=== PATIENT | male | born 1945 | race Caucasian/White ===

== ENCOUNTER 2016-04-13 13:02 | Emergency (ER) | payer BC ==
[~2016-04-13] VITALS: Ht 175.3 cm; Wt 92.0 kg
[~2016-04-13 13:02] MED LIST: ASCO10003; BENZ1TAB2 PO; CARB25TA12 PO; CARB50TA3 PO; CHOL1CAP30 PO; CIPR-255 PO; CYAN100048 SL; DOCU100C31 PO; GLUC1500 PO; HYDR-5688 PO; PANT1TAB48 PO; POLY335025 PO; ROPI0.5T15 PO; TAMS0.4C38 PO; VITACAP37 PO
[2016-04-13 13:11] VITALS: TEMP 36.4; Ht 175.3 cm; Wt 92.0 kg
[2016-04-13] MEDS ORDERED: LIDO/EPINEPHRINE/SOD BICARB 20 ML VIAL INFIL ONE (13:45)
--- NOTE | 2016-04-13 14:12 | EMERGENCY ROOM VISIT NOTE ---
ED Visit Note First contact with patient: 13:29 I have personally seen and evaluated the patient with the physician assistant media planner. I agree with the diagnostic/management decisions and have personally been involved in these decisions and agree with the diagnosis.
[2016-04-13] MEDS ORDERED: COEN75CA PO (14:20)
[2016-04-13] MEDS ORDERED: OMEG10007 PO (14:20)
[2016-04-13] MEDS ORDERED: CARBIDOPA/LEVODOPA 25/100MG TAB PO STA (15:19)
--- NOTE | 2016-04-13 15:32 | DIAGNOSTIC IMAGING REPORT ---
CT SCAN OF THE BRAIN WITHOUT IV CONTRAST CLINICAL HISTORY: Trauma. COMPARISON STUDY: CT of the brain dated 09/12/2015. TECHNIQUE: Unenhanced axial CT scan of the brain is performed from the vertex to the skull base. CT DOSE: 749.40 mGy.cm FINDINGS: Brain parenchyma: There are age-related involutional changes noting mild subcortical and periventricular microangiopathic change. There is no hemorrhage, mass effect, or evidence of acute territorial ischemia by CT criteria. You-white matter is preserved. No extra-axial fluid collection is seen. Ventricles, sulci, cisterns: Prominent secondary to involutional change. Intracranial vasculature: There is atherosclerotic calcification of the cavernous carotid and vertebral arteries. Calvarium: The skeletal structures are osteopenic. No depressed calvarial fracture is seen. Sinuses and mastoids: There is trace fluid in the left maxillary antrum. The remaining visualized paranasal sinuses are clear. The mastoid air cells are well pneumatized. Orbits: The bony orbits are grossly intact. IMPRESSION: There is no hemorrhage, mass effect, or evidence of acute territorial ischemia by CT criteria. Electronically signed by: Isaias Moreno M.D. 04/13/2016 3:30 PM
--- NOTE | 2016-04-13 15:35 | EMERGENCY ROOM VISIT NOTE ---
ED Visit Note First contact with patient: 13:29 CHIEF COMPLAINT: Scalp laceration after a fall HISTORY OF PRESENT ILLNESS: Patient is a 70-year-old white male who is brought to the emergency department by ambulance for evaluation of a right occipital scalp laceration that he sustained at home roughly 90 minutes ago. He has a history of Parkinson's, and a has difficulty with balance at baseline. He bent over to pet a cat, and he lost his balance. He fell forward slightly, then to the side, and as he fell backwards, he struck the right side of the head on a glass decorative table. He broke the table, fell down to the ground. He did not lose consciousness. He had fairly significant bleeding from the right occipital scalp laceration initially, which was controlled shortly thereafter with pressure. Ambulance was summoned. They applied an ice pack. The patient himself denies any pain. The bleeding is now controlled. He denies any headache, lightheadedness, nausea or vomiting. He reports he has dizziness chronically from his Parkinson's and denies any change or worsening in this. He denies any neck pain. No other injuries including to his chest, ribs or back. He has no other complaints other than the scalp laceration. He reports that his tetanus is up-to-date. He does not take any blood thinning medications. REVIEW OF SYSTEMS: Review of systems as per HPI. All other systems reviewed were negative. 10 systems reviewed. PMH: Electronic medical records are reviewed and summarized as above/below. See Problem List. Tetanus is up-to-date. SOCIAL HISTORY: Patient lives at home with his . Nonsmoker. PHYSICAL EXAM: Vital Signs: Reviewed Nurse's notes. CONSTITUTIONAL: Patient is a pleasant, well-appearing 70-year-old white male who is awake and alert and in no acute distress. His is at the bedside. HEENT: Right occipital scalp laceration measuring 4 cm in length. Wound edges gape widely. No active bleeding. Pupils equal, round, reactive to light and accommodation. EOMs intact without nystagmus. Sclera are anicteric. Tympanic membranes intact, with normal landmarks. External canals are clear. Oral and nasopharynx are clear. Mucous membranes are moist. NECK: Supple, nontender, no lymphadenopathy. NEUROLOGICAL: Alert and cooperative. Sensory and motor functions grossly intact. Resting tremors noted. EMERGENCY DEPARTMENT COURSE: Head CT was performed and was negative for acute intracranial bleed or skull fractures. The patient was ordered his 1500 hour dose of Sinemet at his request and he is he has not brought any from home. The wound was cleaned with saline and Betadine and irrigated with saline. Sterile technique was used and the wound was anesthetized with 1% buffered lidocaine with epinephrine. The wound edges were then approximated with 9 skin main. Patient tolerated the procedure well. Bacitracin ointment was applied as a dressing. Head injury and wound care instructions were outlined with the patient. His fall was mechanical in nature, likely related to his Parkinson's disease. It was not consistent with a syncopal episode, seizure or arrhythmia. There was no loss of consciousness or altered mental status. Skull fracture, acute intracranial bleed, cervical spine injury, were all considered. CT SCAN OF THE BRAIN WITHOUT IV CONTRAST CLINICAL HISTORY: Trauma. COMPARISON STUDY: CT of the brain dated 09/12/2015. TECHNIQUE: Unenhanced axial CT scan of the brain is performed from the vertex to the skull base. CT DOSE: 749.40 mGy.cm FINDINGS: Brain parenchyma: There are age-related involutional changes noting mild subcortical and periventricular microangiopathic change. There is no hemorrhage, mass effect, or evidence of acute territorial ischemia by CT criteria. You-white matter is preserved. No extra-axial fluid collection is seen. Ventricles, sulci, cisterns: Prominent secondary to involutional change. Intracranial vasculature: There is atherosclerotic calcification of the cavernous carotid and vertebral arteries. Calvarium: The skeletal structures are osteopenic. No depressed calvarial fracture is seen. Sinuses and mastoids: There is trace fluid in the left maxillary antrum. The remaining visualized paranasal sinuses are clear. The mastoid air cells are well pneumatized. Orbits: The bony orbits are grossly intact. IMPRESSION: There is no hemorrhage, mass effect, or evidence of acute territorial ischemia by CT criteria. Problem List Medical Problems: (1) Adynamic ileus Status: Resolved (2) Anemia Status: Chronic (3) DJD (degenerative joint disease) of hip Status: Resolved (4) Fall Status: Resolved (5) Leukocytosis Status: Resolved (6) Lip laceration Status: Resolved (7) Jeff's syndrome Status: Chronic (8) Parkinson disease Status: Chronic (9) Parkinsons disease Status: Chronic (10) Sigmoid volvulus Status: Resolved (11) UTI (urinary tract infection) Status: Resolved (12) Volvulus Status: Resolved (13) Weakness Status: Resolved Surgical Problems: (1) Odette-prosthetic fracture of femur following total hip arthroplasty Status: Resolved (2) S/P appendectomy Status: Resolved (3) S/P hip replacement Status: Resolved (4) S/P ORIF (open reduction internal fixation) fracture Status: Resolved Current/Historical Medications Scheduled Ascorbic Acid (Vitamin C), 1,000 MG QAM Benztropine Mesylate (Cogentin), 0.5 MG PO BID Carbidopa/Levodopa (Sinemet Cr 50MG/200MG), 1 TAB PO UD Carbidopa/Levodopa (Sinemet 25MG/100MG), 1 TAB PO UD Cholecalciferol (Vitamin D3), 1 CAP PO DAILY Ciprofloxacin Hcl (Cipro), 500 MG PO BID Cyanocobalamin (Vitamin B-12), 1,000 MCG SL DAILY Docusate Sodium (Docusate Sodium), 1 CAP PO DAILY Fqpulbdwucd-Pxmjuhaczxa-Zah C- (Glucosamine Chondroitin 1), 1 CAP PO DAILY Pantoprazole (Protonix), 1 TAB PO DAILY Polyethylene Glycol 3350 (Miralax), 17 GM PO DAILY Ropinirole (Requip), 0.5 MG PO UD Tamsulosin Hcl (Flomax), 0.4 MG PO HS Vitamin E (E-400), 400 PO Q2D Scheduled PRN Hydrocodone/Acetaminophen 5MG/325MG ([place] 5MG/325MG), 1 TABLET PO Q4H PRN for Pain Miscellaneous Medications Coenzyme Q10 (Ubidecarenone) (Co Q-10), 1 CAP PO Fish Oil ([place]-3), 1 CAP PO Allergies Coded Allergies: Poison Nguyen Extract/Poison [place] Extra (Verified Allergy, Severe, rash, itchy , 04/05/15) Does not need to have physical contact to have reaction. Hydromorphone (Unverified Allergy, Unknown, hives on trunk, 04/05/15) POLLEN (Verified Allergy, Unknown, SNEEZING,RUNNY NOSE, 04/05/15) G.Domesticus Dust Mite (Verified Adverse Reaction, Intermediate, Sneeze, cough, 04/05/15) Vital Signs Date Time Temp Pulse Resp B/P Pulse Ox O2 Delivery O2 Flow Rate FiO2 04/13/16 14:30 62 18 123/78 95 Room Air 04/13/16 13:11 36.4 65 18 133/83 94 Room Air Departure Information Impression Primary Impression: Scalp laceration Additional Impression: Fall Referrals Fili Early M.D. (PCP) Patient Instructions A [facility], [facility] Additional Instructions Keep wound clean and dry. Do not allow any crusting or dried blood to accumulate on main. If this occurs, cleanse gently with soap and water to remove scabbing from the staple line. Use an antibiotic ointment for 3-4 days, then let wound dry. Staple removal in 10-12 days. Return sooner for any signs of infection (increasing redness, swelling, drainage). Ice and elevate for swelling and pain. Tylenol 1000 mg every 6 hrs for pain. Continue current medications. Read the head injury instructions and return to the emergency Department for any problems or concerns.
[2016-04-13 16:47] VITALS: BP 122/63; PULSE 72; O2SAT 94
[2016-06-26] MEDS ORDERED: LACT1TAB4 PO (13:04)
[2016-06-26] MEDS ORDERED: DUTA0.5C PO (13:04)
[2016-06-26] MEDS ORDERED: CHOL20007 PO (13:04)
[2016-06-26] MEDS ORDERED: CYAN500T13 PO (13:04)
[2016-06-26] MEDS ORDERED: CLB/200 PO (13:06)
[2016-09-13] MEDS ORDERED: IMD/2 PO (09:40)
[2016-09-13] MEDS ORDERED: FERR1TAB23 PO (09:40)
[2016-09-13] MEDS ORDERED: CGN5X PO (09:42)
[2016-09-16] MEDS ORDERED: HYDR-4383 PO (13:41)
== END 2016-04-13 16:48 | disposition home or self-care (01) ==
LOC: EDBD 13:02 → C.EDC 13:03
DX: S01.01XA Laceration without foreign body of scalp, initial encounter (principal); W25.XXXA Contact with sharp glass, initial encounter; W19.XXXA Unspecified fall, initial encounter; G20 Parkinson's disease; D64.9 Anemia, unspecified; Z79.899 Other long term (current) drug therapy

== ENCOUNTER → 2016-05-12 | Outpatient (CLI) | payer BC ==
[~2016-05-12] MED LIST changes: +CGN5X PO; +CHOL20007 PO; +CLB/200 PO; +COEN75CA PO; +CYAN500T13 PO; +DUTA0.5C PO; +FERR1TAB23 PO; +HYDR-4383 PO; +IMD/2 PO; +LACT1TAB4 PO; +OMEG10007 PO; +OXYC-57 PO; +WARF2TAB PO
== END | disposition home or self-care (01) ==
LOC: C.RDSM 16:20
PROVIDERS: ATTEND Physical Medicine & Rehabilitation Sports Medicine
DX: M17.0 Bilateral primary osteoarthritis of knee (principal)

== ENCOUNTER → 2016-05-16 | Outpatient (CLI) | payer BC ==
--- NOTE | 2016-05-16 12:02 | DIAGNOSTIC IMAGING REPORT ---
ABDOMINAL WALL ULTRASOUND CLINICAL HISTORY: Abdominal wall lump COMPARISON STUDY: CT scan dated 03/17/2015 FINDINGS: Ultrasound of the abdominal wall was performed. There is evidence for rectus diastases and rectus muscle thinning. There are prominent bowel loops which appear mildly dilated. No focal herniations visualized. If there is persistent clinical concern over the presence of abdominal hernia, CT scan could be obtained in follow-up. IMPRESSION: 1. Rectus diastases and rectus muscle thinning. 2. No focal hernia identified ultrasonographically 3. If there is persistent clinical concern over the presence of an abdominal hernia, a CT scan could be obtained in follow-up Electronically signed by: Gregorio Henriquez M.D. 05/16/2016 12:00 PM Dictated Date/Time: 05/16/2016 11:58 AM
== END | disposition home or self-care (01) ==
LOC: C.ULTRBC 11:09
PROVIDERS: ATTEND Internal Medicine Geriatric Medicine
DX: R22.2 Localized swelling, mass and lump, trunk (principal)

== ENCOUNTER → 2016-05-27 | Outpatient (CLI) | payer BC ==
--- NOTE | 2016-05-27 11:04 | DIAGNOSTIC IMAGING REPORT ---
CT SCAN OF THE ABDOMEN AND PELVIS WITHOUT IV CONTRAST CLINICAL HISTORY: Palpable abnormality of the abdominal wall. COMPARISON STUDY: Abdominal CT dated 03/17/2015. Ultrasound abdominal wall dated 05/16/16. TECHNIQUE: CT scan of the abdomen and pelvis is performed from the lung bases to the proximal femora. Images are reviewed in the axial, sagittal, and coronal planes. IV contrast was not administered for this examination as per the referring clinician. Note that the examination was performed and suboptimal fashion without oral and IV contrast. The examination is also degraded by motion artifact. Automated dose control exposure was utilized. CT DOSE: 611.72 mGy.cm FINDINGS: Lung bases: The heart is top normal in size and without pericardial effusion. There are coronary artery calcifications. The lung bases are clear noting dependent atelectasis. There is a small hiatal hernia. Liver: The unenhanced liver is normal in size, contour, and attenuation. There is no intrahepatic biliary ductal dilatation. Gallbladder: Unremarkable. Spleen: Normal in size and attenuation. Pancreas: The unenhanced pancreas is grossly unremarkable. Adrenal glands: Unremarkable. Kidneys: The unenhanced kidneys demonstrate cortical atrophy and are without hydronephrosis. There are no renal calculi identified. A 1.6 cm cyst is noted in the left upper pole. Abdominal vasculature: The abdominal aorta is normal in course and caliber noting moderate to advanced atherosclerotic calcification. Bowel: There is moderate to severe constipation. Findings suggest previous partial colon resection. No bowel obstruction is identified. There is fecalization of the small bowel. The appendix is not identified and reported surgically absent. Peritoneum: There is no intraperitoneal free air or abdominal ascites. There is a tiny fat-containing umbilical hernia, as well as evidence of previous ventral hernia repair. There is persistent ventral hernia with protuberant small bowel loops. This is best seen in the ventral pelvis on axial image #330. There is diastases of the rectus musculature at this level. A small fat-containing supraumbilical hernia is seen on image #264. Lymphadenopathy: None. Pelvic viscera: Evaluation of the pelvis is significantly degraded by streak artifact from bilateral hip arthroplasties. The prostate gland appears mildly enlarged but is not well assessed. The bladder wall appears slightly thickened and trabeculated suggesting chronic outlet obstruction. A penile prosthesis is in place. The reservoir is located in the left ventral pelvis. Skeletal structures: The skeletal structures are osteopenic. Mild lumbosacral spondylosis is observed. No lytic or blastic lesions are seen. There are bilateral hip arthroplasties. IMPRESSION: 1. Suboptimal examination without oral and IV contrast. The examination is also degraded by motion artifact. 2. Findings suggest previous colon resection. No bowel obstruction is identified. There is moderate to severe constipation as well as fecalization of the distal small bowel loops. 3. There is evidence of previous ventral hernia repair. There is diastases of the rectus musculature with persistent ventral hernia in the midline pelvis and protuberant small bowel loops at this site. 4. There is a small fat-containing supraumbilical hernia. 5. Additional changes as above. Electronically signed by: Isaias Moreno M.D. 05/27/2016 11:03 AM Dictated Date/Time: 05/27/2016 10:54 AM
== END | disposition home or self-care (01) ==
LOC: C.CTS 10:30
PROVIDERS: ATTEND Internal Medicine Geriatric Medicine
DX: R22.2 Localized swelling, mass and lump, trunk (principal); K59.00 Constipation, unspecified; K43.9 Ventral hernia without obstruction or gangrene

== ENCOUNTER 2016-07-23 06:12 | Inpatient (IN) | payer BC, OTHER ==
[2016-06-26 13:06] LABS: URINE APPEARANCE CLEAR (CLEAR); URINE BILIRUBIN NEG (NEG); URINE COLOR YELLOW; URINE NITRITE NEG (NEG); URINE PH 5.5 (4.5-7.5); URINE SPECIFIC GRAVITY 1.026 (1.000-1.030); UROBILINOGEN NEG (NEG)
[2016-06-26 13:09] LABS: MANUAL MICROSCOPIC REQUIRED? NO; REVIEW REQ? NO
--- NOTE | 2016-06-26 14:07 | PAT Medication Instructions ---
Service Date Jun 26, 2016. Current Home Medication List Ascorbic Acid (Vitamin C), 1,000 MG QAM Benztropine Mesylate (Cogentin), 0.5 MG PO QAM Carbidopa/Levodopa (Sinemet Cr 50MG/200MG), 1 TAB PO midnight Carbidopa/Levodopa (Sinemet 25MG/100MG), 1 TAB PO 5XWEEK Celecoxib (CeleBREX), 200 MG PO QAM Cholecalciferol (Vitamin D3), 1 TAB PO QAM Coenzyme Q10 (Ubidecarenone) (Co Q-10), 1 CAP PO Q2D Cyanocobalamin (Vitamin B12 500MCG), 1,000 MCG PO QAM Dutasteride (Avodart), 0.5 MG PO NOON Fish Oil ([place]-3), 1 CAP PO Q2D Lactobacillus (Floranex), 1 TAB PO QAM Ropinirole (Requip), 0.5 MG PO UD Tamsulosin Hcl (Flomax), 0.4 MG PO HS Vitamin E (E-400), 400 PO Q2D Medication Instructions For Your Scheduled Surgery Celecoxib (CeleBREX), 200 MG PO QAM (patient will check with surgeon) - Hold the following medications 2 weeks prior to surgery: Vitamin E (E-400), 400 PO Q2D Fish Oil ([place]-3), 1 CAP PO Q2D Coenzyme Q10 (Ubidecarenone) (Co Q-10), 1 CAP PO Q2D - Hold the following medications 24 hours prior to surgery: Ropinirole (Requip), 0.5 MG PO UD - Hold the following medications the morning of surgery: Cyanocobalamin (Vitamin B12 500MCG), 1,000 MCG PO QAM Cholecalciferol (Vitamin D3), 1 TAB PO QAM Ascorbic Acid (Vitamin C), 1,000 MG QAM Lactobacillus (Floranex), 1 TAB PO QAM - Take the following medications the morning of surgery with a sip of water: Carbidopa/Levodopa (Sinemet 25MG/100MG), 1 TAB PO 5XWEEK Benztropine Mesylate (Cogentin), 0.5 MG PO QAM - Take the following medications as scheduled the afternoon/night before surgery : Tamsulosin Hcl (Flomax), 0.4 MG PO HS Dutasteride (Avodart), 0.5 MG PO NOON Carbidopa/Levodopa (Sinemet Cr 50MG/200MG), 1 TAB PO midnight If you have any questions please call us at [phone] or [phone] ( [place]) or [phone]
[2016-06-26 15:16] LABS: BASO % 0.3 %; BASO ABS # 0.02 K/uL (0-0.2); COMPLETE YES; EOS % 1.5 %; HEMATOCRIT 39.7 % (42-52); IG% 0.3 %; LYMPH % 25.7 %; LYMPH ABS # 1.76 K/uL (1.2-3.4); MEAN CELL VOLUME 92.1 fL (80-100); MEAN CORPUSCULAR HEMOGLOBIN 30.9 pg (25-34); MEAN CORPUSCULAR HGB CONC 33.5 g/dl (32-36); MEAN PLATELET VOLUME 11.8 fL (7.4-10.4); MONO % 9.8 %; NEUT % 62.4 %; PLATELET COUNT 196 K/uL (130-400); RED BLOOD COUNT 4.31 M/uL (4.7-6.1); WHITE BLOOD COUNT 6.85 K/uL (4.8-10.8)
[2016-06-26 15:30] LABS: PARTIAL THROMBOPLASTIN RATIO 1.1; PROTHROMBIN TIME (PATIENT) 10.7 SECONDS (9.0-12.0)
[2016-06-26 15:39] LABS: BUN/CREATININE RATIO 34.9 (10-20); CALCIUM 8.7 mg/dl (8.5-10.1); CREATININE 0.63 mg/dl (0.60-1.40); POTASSIUM 4.2 mmol/L (3.5-5.1)
--- NOTE | 2016-07-07 17:31 | HISTORY & PHYSICAL EXAMINATION ---
DATE OF ADMISSION: 07/23/2016 CHIEF COMPLAINT: Right knee pain. HISTORY OF PRESENT ILLNESS: This 70-year-old white male presents to the office with complaints of right knee pain, this has been ongoing for an extended period of time. Symptoms have been present for over 6 months. He has tried Euflexxa injections as well as cortisone injections and oral anti-inflammatories without lasting improvement. X-ray and MRI have been obtained. Knee pain is affecting his ADLs. It is worse with any weightbearing. He does have Parkinson disease and has limited weightbearing, using a walker. His knee pain is interfering with his ability to push off with the right leg. He notes that he falls because the right knee generates pain. He denies any numbness or tingling. He elects to proceed with right total knee arthroplasty on 07/23/2016 in hopes of alleviating his discomfort and disability. PAST MEDICAL HISTORY: Significant for osteoarthritis, anemia, Parkinson disease, lymphedema, abdominal hernia, history of alcohol use, BPH, erectile dysfunction, seborrheic keratosis, and history of periprosthetic hip fracture. PREVIOUS SURGERIES: Total shoulder arthroplasty August 2015, sigmoidoscopy March 2015, right cubital tunnel release January 2015, left cubital tunnel release November 2014, left total hip replacement in December 2013, ORIF of the femur for periprosthetic hip fracture in 2014, skin biopsy October 2013, right total hip arthroplasty October 2012, appendectomy in 1994. CURRENT MEDICATIONS: Benztropine 0.5 mg p.o. daily, Sinemet 50 mg/200 mg p.o. at midnight, Celebrex 200 mg daily, CoQ10 daily, fish oil daily, Flomax 0.4 mg daily, ketaconazole 2% topical shampoo daily, melatonin 1 mg p.o. at bedtime, [place] 5/325 mg p.o. q. 6 hours p.r.n., Requip 0.5 mg 2 tablets p.o. daily, Sinemet 25 mg/100 mg p.o. q. 3 hours, vitamin B12 daily, vitamin C and D daily, vitamin E 400 units daily. ALLERGIES: KNOWN ALLERGY TO DILAUDID. SOCIAL HISTORY: The patient is employed at the university. . No tobacco use, social ETOH use. He used up to 18 drinks per week at one point in time. FAMILY HISTORY: Significant for heart disease. REVIEW OF SYSTEMS: Significant for above stated conditions, otherwise unremarkable. PHYSICAL EXAMINATION: GENERAL: Well-developed, well-nourished elderly white male, in no acute distress. Sitting in a wheelchair. Alert and oriented. Baseline tremor. SKIN: Warm and dry with fair turgor. No rashes. Dry flaking skin present. No ecchymosis or erythema. Mild intraarticular effusion. HEENT: Normocephalic, atraumatic. Eyes: PERRLA, EOMI. Nares patent bilaterally without turbinate enlargement. Oropharynx without erythema or exudate. No lesions noted. Uvula midline. Oral mucosa moist. Fair dentition. HEART: RRR. No MGR. LUNGS: Clear to auscultation bilaterally. No crackles, rhonchi or wheezing. Good air movement. ABDOMEN: Obese. Bowel sounds present x4, soft, nontender. No organomegaly. Midline hernia noted. MUSCULOSKELETAL: Lymphedema is present in his lower extremities. Right knee has discomfort with palpation over the medial and lateral joint lines as well as the peripatellar area. There is patellofemoral crepitation with flexion and extension. Stable collateral ligaments. Lacks a few degrees of terminal extension. Flexion to around 90 degrees. No defect in the patellar tendon or quadriceps tendon. NEUROLOGIC: Cranial nerves II-XII are intact. Baseline tremor as stated. Flat affect. Gross sensation is intact across the lower extremities by soft touch. DATA: Radiographic imaging previously obtained shows end-stage patellofemoral disease of the right knee. Periarticular osteophytes and subchondral sclerosis is also present. IMPRESSION: Right knee end-stage degenerative joint disease. PLAN: Informed written consent was obtained to proceed with right total knee arthroplasty. Postoperative prescriptions for Percocet and Coumadin will be provided at discharge from the hospital. Anticipate discharge to a correction or rehab hospital due to his baseline Parkinson's and risk of falling. His is unable to care for him at home. He already has a walker. Preoperative lab work, EKG and chest x-ray have been ordered. Medical clearance has been requested from Dr. Early as well as the patient's neurologist. SERJIO
[2016-07-23] VITALS (8 sets, daily range): BP systolic 101–125; BP diastolic 59–75; PULSE 56–94; TEMP 36.3–36.7; O2SAT 84–98; Ht 175.3 cm; Wt 175.3 kg
[~2016-07-23] VITALS: Ht 175.3 cm; Wt 175.3 kg
[~2016-07-23 06:12] MED LIST changes: +CEFAZOLIN 2000 MG/60 ML D5W 60 ML IV SCH; -CGN5X PO; -CHOL1CAP30 PO; -CIPR-255 PO; -CYAN100048 SL; -DOCU100C31 PO; -FERR1TAB23 PO; -GLUC1500 PO; -HYDR-4383 PO; -HYDR-5688 PO; -IMD/2 PO; +LACTATED RINGER'S 1000ML 1,000 ML IV SCH; +LACTATED RINGER'S 1000ML 500 ML IV ONE; +LACTATED RINGER'S 1000ML IV SCH; -OXYC-57 PO; -PANT1TAB48 PO; -POLY335025 PO; +ROPIVACAINE 5MG/ML 30 ML 150 MG, BUPIVACAINE/EPINEPHR 0.5% MPF 30 ML, KETOROLAC TROMETH... INFIL SCH; +TRANEXAMIC ACID INJ 1,000 MG in SODIUM CHLORIDE 0.9% 100ML 100 ML IV SCH; -WARF2TAB PO
--- NOTE | 2016-07-23 06:20 | History & Physical Bridge Note ---
H&P Re-Evaluation Bridge Note: I have examined the patient, reviewed the History & Physical and in the interval since the performance of the History & Physical I have noted the following changes of clinical significance:cleared by primary care and neurology and patient requests R TKA secondary to pain and decreased function. No changes noted
[2016-07-23] MEDS ORDERED: BUPIVACAINE 0.25% 30 ML VIAL ONE (06:43)
[2016-07-23] MEDS ORDERED: DEXAMETHASONE SOD INJ 4 MG/ML VIAL ONE (06:43)
[2016-07-23] MEDS ORDERED: MIDAZOLAM HCL 1 MG/ML 2ML VIAL ONE (08:07)
[2016-07-23] MEDS ORDERED: ORTHO JOINT ANESTHETIC ONE (08:31)
[2016-07-23] MEDS ORDERED: POVIDONE-IODINE OP SOLN 30 ML BTL ONE (08:32)
[2016-07-23] MEDS ORDERED: BUPIVACAINE 0.5 % 5 MG/1 ML PF 10ML VIAL ONE (08:58)
[2016-07-23] MEDS ORDERED: MEPERIDINE HCL 25 MG/ML CARP IV PRN (09:00)
[2016-07-23] MEDS ORDERED: EpHEDrine SULFATE INJ 50 MG/ML AMP IV PRN (09:00)
[2016-07-23] MEDS ORDERED: ONDANSETRON INJ 2 MG/ML 2 ML VIAL IV PRN ×2 (09:00→10:30)
[2016-07-23] MEDS ORDERED: FENTANYL CITRATE INJ 50 MCG/1 ML 2 ML VIAL IV PRN (09:00)
[2016-07-23] MEDS ORDERED: LABETALOL HCL IV 5 MG/ML 20ML IV PRN (09:00)
[2016-07-23] MEDS ORDERED: ATROPINE SULFATE 0.1 MG/ML 5ML SYR IV PRN (09:00)
[2016-07-23] MEDS ORDERED: LIDOCAINE HCL 2% 2 ML VIAL (20MG/ML) ONE (09:38)
[2016-07-23] MEDS ORDERED: PROPOFOL IV EMULSION 10 MG/ML 20 ML VIAL IV ONE (09:38)
--- NOTE | 2016-07-23 10:15 | [facility] Post Operative Brief Note ---
Immediate Operative Summary Operative Date Jul 23, 2016. Pre-Operative Diagnosis Right knee end-stage degenerative joint disease Post-Operative Diagnosis Same as preop Procedure(s) Performed Right Total Knee Arthroplasty Surgeon Dr. Nelson Construction Rep Surgeon(s) Erick Webb Estimated Blood Loss 125 ml Findings severe PFJ disease Fluids (cc crystalloids) 1400cc Specimens A:Right knee Bone and Tissue Drains none Anesthesia spinal/block Complication(s) None Disposition Recovery Room / PACU
[2016-07-23] MEDS ORDERED: ACETAMINOPHEN 325 MG TAB PO PRN (10:30)
[2016-07-23] MEDS ORDERED: DiphenhydrAMINE HCL 50 MG/ML VIAL IV PRN (10:30)
[2016-07-23] MEDS ORDERED: BISACODYL 10 MG SUPP PR PRN (10:30)
[2016-07-23] MEDS ORDERED: ALUMINUM/MAGNESIUM/SIMETH (MAALOX MAX) 30 ML UDC PO PRN (10:30)
[2016-07-23] MEDS ORDERED: MAGNESIUM HYDROXIDE SUSP 30 ML UDC PO PRN (10:30)
[2016-07-23] MEDS ORDERED: MoRPHine SULFATE 2 MG/ML CARP IV PRN (10:30)
[2016-07-23] MEDS ORDERED: METOCLOPRAMIDE HCL INJ 5 MG/ML 2 ML VIAL IV PRN (10:30)
--- NOTE | 2016-07-23 10:45 | OPERATIVE REPORT ---
DATE OF OPERATION: 07/23/2016 SURGEON: Dr. Loredo. INSECT CONTROL INSPECTOR: Chuy Montoya PA-C. No resident or fellow available. PREOPERATIVE DIAGNOSIS: Osteoarthritis, right knee, with severe patellofemoral disease. POSTOPERATIVE DIAGNOSIS: Same. OPERATION PERFORMED: Right cemented total knee replacement. PERIOPERATIVE SITUATION: Medically cleared male with multiple comorbidities including severe Parkinson's disease, who has an inability to push off his right leg due to chronic subluxation and instability and degenerative disease of his patellofemoral joint. At this point time, it is increasing his fall risk and he wants to proceed with surgical treatment. He was cleared from his medical provider as well as his neurologist. PROCEDURE IN DETAIL: The patient was properly identified, site verified, consent verified, 2 grams of Ancef confirmed as being given. The right lower extremity was prepped and draped in usual routine fashion. Care was taken to protect his bilateral hip replacements. Tourniquet was inflated to 300 mmHg with exsanguination of limb with a rubber Esmarch bandage. Total tourniquet time was approximately 50 minutes. Midline exposure utilized. Parapatellar arthrotomy performed. Severe disease was noted of the patellofemoral joint with marked mal-tracking and severe grooving and bone loss. All synovectomy was completed, all soft tissue releases were completed. The cruciates were then resected, the tibia was subluxated, meniscal remnants were removed. The distal femur resected 12 mm at 6 degrees of valgus, the proximal tibia resected 4 mm. The extension gap was excellent. The femur was sized to a 5, it was cut, appropriate condylar and chamfer cuts made. The flexion gap was excellent. Box cut was then made. A 5 size trial fit well. The tibia was broached and reamed to a size 5 and then the 12.5 spacer noted to give best stability and midrange flexion, did not eliminate any extension. The patella was then sized to a 41. It was resected, leaving 15.5 to 16 mm, and the trial peg holes seated and the patella fit well. It tracked well. All trial implants were then removed and the wound then irrigated with Betadine, Pulsavac, and the permanents cemented into position. After 12 minutes, tourniquet deflated. After 14 minutes, the knee flexed. The knee irrigated with Betadine, Pulsavac, the spacer removed and then minor cement removal occurred and then the permanent knee spacer placed and the knee reduced and then closed using #1 Ethibond, #1 Vicryl, 2-0 Vicryl, and stainless steel clips. Appropriate soft tissue dressing applied and the patient transferred to the recovery room in satisfactory condition, having tolerated the procedure well. ESTIMATED BLOOD LOSS: 150 mL CRYSTALLOID: 1400 to 1500 mL SUMMARY OF IMPLANTS: Size 5 right femur posterior cruciate substituting, size 5 tibial rotating platform tray, size 41 oval domed 3 pegged patella, and tibial insert size 5 x 12.5, two bags of [place] G cement. DVT prophylaxis per protocol. I attest to the content of the Intraoperative Record and any orders documented therein. Any exceptions are noted below. MTDD
--- NOTE | 2016-07-23 10:58 | DIAGNOSTIC IMAGING REPORT ---
TWO VIEWS RIGHT KNEE CLINICAL HISTORY: Postoperative examination. FINDINGS: AP and crosstable lateral portable views of the right knee are obtained. A right knee arthroplasty is in near anatomic alignment. There has been undersurface remodeling of the patella. No acute fracture is seen. There are expected postoperative changes around the knee including skin clips, soft tissue edema, and subcutaneous gas. IMPRESSION: Expected postoperative changes status post right knee arthroplasty. No acute fracture is seen. Electronically signed by: Isaias Moreno M.D. 07/23/2016 10:56 AM Dictated Date/Time: 07/23/2016 10:56 AM
--- NOTE | 2016-07-23 11:34 | Anesthesiology Progress Note ---
Anesthesia Post Op Note Date & Time Jul 23, 2016 at 11:33 Vital Signs Pain Intensity: 0 Vital Signs Past 12 Hours Date Time Temp Pulse Resp B/P Pulse Ox O2 Delivery O2 Flow Rate FiO2 07/23/16 11:21 67 15 93 07/23/16 11:21 70 15 07/23/16 11:20 118/66 07/23/16 11:16 68 15 92 07/23/16 11:16 70 15 07/23/16 11:15 110/67 07/23/16 11:11 71 21 07/23/16 11:11 37.0 07/23/16 11:11 71 21 92 07/23/16 11:10 107/65 07/23/16 11:07 72 21 92 07/23/16 11:07 71 21 07/23/16 11:05 107/66 07/23/16 11:02 71 24 07/23/16 11:02 71 24 93 07/23/16 11:00 109/70 07/23/16 10:57 69 20 92 07/23/16 10:57 70 20 07/23/16 10:55 112/65 07/23/16 10:52 69 21 07/23/16 10:52 69 21 92 07/23/16 10:51 67 22 92 07/23/16 10:51 69 22 07/23/16 10:50 114/66 07/23/16 10:46 67 13 07/23/16 10:46 66 13 92 07/23/16 10:45 119/68 07/23/16 10:41 67 15 92 07/23/16 10:41 67 15 07/23/16 10:40 111/66 07/23/16 10:39 67 19 92 07/23/16 10:39 67 19 07/23/16 10:35 121/71 07/23/16 10:34 71 18 92 07/23/16 10:34 70 18 07/23/16 10:31 115/67 07/23/16 10:29 70 20 93 07/23/16 10:29 70 20 07/23/16 10:25 116/67 07/23/16 10:24 69 20 07/23/16 10:24 71 20 95 07/23/16 10:20 110/61 07/23/16 10:19 70 20 07/23/16 10:19 71 20 95 07/23/16 10:19 36.6 72 16 112/69 98 Mask 07/23/16 06:52 36.7 76 20 125/75 93 Room Air Notes Mental Status: alert / awake / arousable, participated in evaluation Pt Amnestic to Procedure: Yes Nausea / Vomiting: adequately controlled Pain: adequately controlled Airway Patency, RR, SpO2: stable & adequate BP & HR: stable & adequate Hydration State: stable & adequate Anesthetic Complications: no major complications apparent
[2016-07-23] MEDS ORDERED: D5W AND 1/2NSS + 20MEQ KCL 1,000 ML IV SCH (12:00)
--- NOTE | 2016-07-23 12:41 | OPERATIVE REPORT ---
DATE OF OPERATION: 07/23/2016 PREOPERATIVE DIAGNOSIS: Right knee end-stage degenerative joint disease. POSTOPERATIVE DIAGNOSIS: Right knee same. PROCEDURE: Right knee total knee arthroplasty using DePuy implants. SURGEON: Dr. Loredo. SUPERVISOR [employer]SEMBLY DEPARTMENT: Chuy Montoya PA-C. HISTORY OF PRESENT ILLNESS: This 70-year-old white male presented to the office with complaints of intractable right knee pain. He was unable to ambulate without severe pain. The patient was spending most of his time in a wheelchair. He was unable to use his walker any longer. He had tried conservative care measures including activity modification, oral pain medications, oral anti-inflammatories, and physical therapy without success. He elected to proceed with surgical intervention after being educated about potential risks and outcomes. Preoperative x-rays were obtained. OPERATION: The patient was administered spinal anesthetic. He was then taken to the operating room where he was given sedation. He was prepped and draped in the usual sterile fashion. Please see Dr. Loredo's operative report for specifics of the procedure. I was present for the entire case from initial patient positioning through final wound closure. Assistance was provided in tissue retraction, hemostasis, trial implant placement, final implant placement, and final wound closure. The patient was taken to the recovery room in satisfactory condition. I attest to the content of the Intraoperative Record and any orders documented therein. Any exceptio ns are noted below.
--- NOTE | 2016-07-23 12:46 | Medical Consult ---
Consultation Date of Consultation: Jul 23, 2016. Attending Physician: Enrique Loredo M.D. Reason for Consultation: Medical Management History of Present Illness Mr. Umanzor is a 70 y/o male with PMHx of Idiopathic Parkinson's Disease, Normocytic/chromic Anemia, Lymphedema, and BPH who is S/P R TKA. Pain is currently well managed. Currently, Parkinson's symptoms are more pronounced significant for bradykinesia and intermittent resting tremor. Speech is largely clear but can be intermittently hard to understand due to mumbling. However, patient is alert and oriented and appears the signs are strictly due to his Parkinson's. He is managed on Sinemet Q3H with additional dose of Sinemet at midnight. He is also managed on Cogentin 0.5 mg BID and Requip 0.5 mg with 1 dose 15 minutes prior to midnight in the other dose 15 minutes after midnight. Preop laboratories reveal baseline hemoglobin levels. Anemia appears to be normocytic/normochromic and appears to be anemia of chronic disease. He denies fever/chills, chest pain, SOB, nausea/vomiting, abdominal pain, dysuria, melena/hematochezia. Past Medical/Surgical History Medical Problems: (1) Anemia Status: Chronic (2) Fall Status: Acute (3) Jeff's syndrome Status: Chronic (4) Parkinson disease Status: Chronic (5) Parkinsons disease Status: Chronic (6) Scalp laceration Status: Acute Family History FH: heart disease Social History Smoking Status: Never Smoker Smokeless Tobacco Use: No Alcohol Use: socially (Previous H/O ETOH abuse) Drug Use: none Marital Status: Housing Status: lives with family Occupation Status: retired Allergies Coded Allergies: Poison Nguyen Extract/Poison [place] Extra (Verified Allergy, Severe, rash, itchy , 07/23/16) Does not need to have physical contact to have reaction. Hydromorphone (Verified Allergy, Unknown, hives on trunk, 07/23/16) POLLEN (Verified Allergy, Unknown, SNEEZING,RUNNY NOSE, 07/23/16) G.Domesticus Dust Mite (Verified Adverse Reaction, Intermediate, Sneeze, cough, 07/23/16) Current Inpatient Medications Current Inpatient Medications Medications (Trade) Dose Ordered Sig/Mary Route Start Time Stop Time Status Last Admin Dose Admin Lactated Ringer's 1,000 ml @ 60 mls/hr [id number] IV 07/23/16 06:00 07/23/16 22:39 Cefazolin Sodium 60 ml @ 100 mls/hr PREOP IV 07/23/16 06:00 07/23/16 18:00 07/23/16 08:42 100 MLS/HR Lactated Ringer's 1,000 ml @ 15 mls/hr Q24H IV 07/23/16 06:00 07/24/16 05:59 Ropivacaine/ Bupivacaine HCl/ Epinephrine Bitart/Ketorolac Tromethamine/ Dexamethasone Sodium Phosphate/ Ketamine HCl/ Clonidine/Sodium Chloride/Empty Bag (Naropin Inj 5MG/ Ml 30ML/ Sensorcaine/ Epinephrine 0.5% Mpf 1:200,000/ Toradol Inj/ Decadron Inj/ Ketalar Steri-Vial I... 93.2 ml @ 0 mls/hr PREOP INFIL 07/23/16 06:00 07/23/16 16:00 07/23/16 09:46 93.2 MLS/HR Fentanyl Citrate (Fentanyl Inj) 50 mcg Q5M PRN IV 07/23/16 09:00 07/23/16 14:00 Meperidine HCl (Demerol Inj) 25 mg Q5M PRN IV 07/23/16 09:00 07/23/16 14:00 Ondansetron HCl (Zofran Inj) 4 mg ONE PRN IV 07/23/16 09:00 07/23/16 14:00 Labetalol HCl (Normodyne IV) 5 mg Q5M PRN IV 07/23/16 09:00 07/23/16 14:00 Ephedrine Sulfate (EpHEDrine SULFATE INJ) 5 mg Q5M PRN IV 07/23/16 09:00 07/23/16 14:00 Atropine Sulfate 0.5 mg 0.5 mg Q1M PRN IV 07/23/16 09:00 07/23/16 14:00 Potassium Chloride/Dextrose/ Sod Cl 1,000 ml @ 100 mls/hr Q10H IV 07/23/16 12:00 07/24/16 11:59 Cefazolin Sodium/ Dextrose (Ancef Iv/D5 50ml) 60 ml @ 100 mls/hr Q8H IV 07/23/16 16:00 07/24/16 00:35 Ketorolac Tromethamine (Toradol Inj) 15 mg Q6H IV. 07/23/16 18:00 07/24/16 17:59 Oxycodone HCl (Roxicodone Immediate Rel Tab) 1 TABLET FOR PAIN RATING... Q4H PRN PO 07/23/16 10:30 08/06/16 10:29 Morphine Sulfate (MoRPHine SULFATE INJ) give 2mg for pain 3-6 g... Q1H PRN IV 07/23/16 10:30 08/06/16 10:29 UNV Acetaminophen (Tylenol Tab) 650 mg Q6H PRN PO 07/23/16 10:30 08/22/16 10:29 Magnesium Hydroxide (Milk Of Magnesia Susp) 30 ml Q6H PRN PO 07/23/16 10:30 08/22/16 10:29 Bisacodyl (Dulcolax Supp) 10 mg DAILY PRN MD 07/23/16 10:30 08/22/16 10:29 Docusate Sodium (coLACE CAP) 100 mg BID PO 07/23/16 21:00 08/22/16 20:59 Diphenhydramine HCl (Benadryl Inj) 25 mg Q8H PRN IV 07/23/16 10:30 08/22/16 10:29 Al Hydrox/Mg Hydrox/Simethicone (Maalox Max Susp) 15 ml Q4H PRN PO 07/23/16 10:30 08/22/16 10:29 Multivitamins (Multivitamin Tab) 1 tab QAM PO 07/24/16 09:00 08/23/16 08:59 Ondansetron HCl (Zofran Inj) 4 mg Q6H PRN IV 07/23/16 10:30 08/22/16 10:29 Metoclopramide HCl (Reglan Inj) 10 mg Q6H PRN IV 07/23/16 10:30 08/22/16 10:29 Ferrous Gluconate (Ferrous Gluconate Tab) 324 mg TIDM PO 07/23/16 12:30 08/22/16 12:29 Pantoprazole Sodium 40 mg 40 mg QAM PO 07/24/16 09:00 08/23/16 08:59 Tranexamic Acid 1000 mg/Sodium Chloride 110 ml @ 660 mls/hr Q6H IV 07/23/16 16:00 07/23/16 16:09 Dexamethasone Sodium Phosphate/ Syringe (Decadron Inj/ Syringe) 2.5 ml @ 1 mls/min TODAY@0730 IV 07/24/16 07:30 07/24/16 07:33 Carbidopa/Levodopa (Sinemet Cr 50/ 200MG Tab) 1 tab DAILY PO 07/24/16 23:55 08/23/16 23:54 UNV Cyanocobalamin (Vitamin B-12 Tab) 1,000 mcg QAM PO 07/24/16 09:00 08/23/16 08:59 Ropinirole HCl (Requip Tab) 0.5 mg UD PO 07/23/16 10:30 UNV Tamsulosin HCl (Flomax Cap) 0.4 mg HS PO 07/23/16 21:00 08/22/16 20:59 Miscellaneous Information (Order Awaiting Action) 1 ea QS N/A 07/23/16 16:00 08/22/16 15:59 Carbidopa/Levodopa (Sinemet 25/ 100MG Tab) 1 tab [id number] PO 07/23/16 13:00 08/22/16 12:59 UNV Benztropine Mesylate (Cogentin Tab) 0.5 mg BID PO 07/23/16 21:00 08/22/16 20:59 UNV Review of Systems REVIEW OF SYSTEMS: General/Constitutional: Denies fever/chills, fatigue, weakness, weight gain/loss ENT: Denies visual changes, nasal drainage, hearing loss, sore throat, trouble swallowing Cardiovascular: Denies chest pain, palpitations, edema Respiratory: Denies cough, sputum, SOB, wheezing, orthopnea GI: Denies nausea, vomiting, abdominal pain, constipation, diarrhea, melena/ hematochezia : Denies dysuria, frequency, hematuria Musculoskeletal: Denies joint/muscle aches, weakness, swelling Neurologic: +bradykinesia (Parkinson's); Denies dizziness/lightheadedness, numbness/tingling Psychiatric: Deferred Endocrine: Deferred Hematologic/Lymphatic: Denies bleeding/clotting abnormalities Skin: Denies rash, itch, new skin changes, easy bruising Allergy/Immunologic: Deferred Physical Exam Date Time Temp Pulse Resp B/P Pulse Ox O2 Delivery O2 Flow Rate FiO2 07/23/16 12:00 73 18 112/68 93 Nasal Cannula 4.0 07/23/16 11:30 Nasal Cannula 4.0 07/23/16 11:30 Nasal Cannula 4.0 07/23/16 11:21 67 15 93 07/23/16 11:21 70 15 07/23/16 11:20 118/66 07/23/16 11:16 68 15 92 07/23/16 11:16 70 15 07/23/16 11:15 110/67 07/23/16 11:11 71 21 07/23/16 11:11 37.0 07/23/16 11:11 71 21 92 07/23/16 11:10 107/65 07/23/16 11:07 72 21 92 07/23/16 11:07 71 21 07/23/16 11:05 107/66 07/23/16 11:02 71 24 07/23/16 11:02 71 24 93 07/23/16 11:00 109/70 07/23/16 10:57 69 20 92 07/23/16 10:57 70 20 07/23/16 10:55 112/65 07/23/16 10:52 69 21 07/23/16 10:52 69 21 92 07/23/16 10:51 67 22 92 07/23/16 10:51 69 22 07/23/16 10:50 114/66 07/23/16 10:46 67 13 07/23/16 10:46 66 13 92 07/23/16 10:45 119/68 07/23/16 10:41 67 15 92 07/23/16 10:41 67 15 07/23/16 10:40 111/66 07/23/16 10:39 67 19 92 07/23/16 10:39 67 19 07/23/16 10:35 121/71 07/23/16 10:34 71 18 92 07/23/16 10:34 70 18 07/23/16 10:31 115/67 07/23/16 10:29 70 20 93 07/23/16 10:29 70 20 07/23/16 10:25 116/67 07/23/16 10:24 69 20 07/23/16 10:24 71 20 95 07/23/16 10:20 110/61 07/23/16 10:19 70 20 07/23/16 10:19 71 20 95 07/23/16 10:19 36.6 72 16 112/69 98 Mask 07/23/16 06:52 36.7 76 20 125/75 93 Room Air PHYSICAL EXAM:: General Appearance: WDWN in NAD who is A&O x 3, mask-like face HEENT: Head is normocephalic/atraumatic; EOMI; PERRLA; Hearing grossly intact; Mucous membranes moist; Pharynx negative for exudate/lesions Neck: Supple; Trachea midline; Neg JVD; Neg lymphadenopathy Heart: RRR with no M/G/R Lungs: CTA in all lung villalba bilaterally; Respirations unlabored; Neg accessory muscle use Abdomen: Soft, non-tender, non-distended; Positive BS x 4 quadrants; Neg organomegaly Extremities: Capillary refill < 2 seconds; Non-pitting edema of bilateral lower extremities; RLE with Dung bandage that is clean/dry/intact; Neg cyanosis Neurological: Speech clear, but soft and intermittently mumbling; + bradykinesia , intermittent resting tremor, + cogwheeling of upper extremities Psychiatric: Appropriate mood/affect Skin: Normal Color; Warm/Dry; Neg rashes, ecchymosis, lacerations/ulcerations Assessment & Plan Mr. Umanzor is a 70 y/o male with PMHx of Idiopathic Parkinson's Disease, Normocytic/chromic Anemia, Lymphedema, and BPH who is S/P R TKA. S/P R TKA: - Pain management, IVF, PT/OT, DVT prophylaxis per primary Idiopathic Parkinson's Disease: - Sinemet 25/100 mg Q3H 5 times daily and Sinemet 50/100 mg daily at midnight - Cogentin 0.5 mg BID - Requip 0.5 mg - one dose 15 minutes prior to midnight and second dose 15 minutes after midnight Normocytic/Normochromic Anemia: Anemia of Chronic Disease: STABLE - Ferrous gluconate 324 mg TID - Trend CBC BPH: - Flomax 0.4 mg HS Disposition: D/C per primary Thank you for the consultation. We will continue to follow. ATTENDING ATTESTATION I have seen and examined patient and agree with the assesment last plan as stated above by NICHO Rockwell. 70 y/o male with PMHx of Parkinsons, Anemia of chronic disease and Ooglvies who is S/P R TKA on 07/23. Post- op patient denies leg pain,nasuea, chest pain, SOB. Vitals- reviewed GEN- mild tremoes CVS- RRR RESP- CTA ABD- + BS, NTND EXT- no c/c/e Labs- reviewed 70 y/o male with PMHx of Parkinson, Anemia of chronic disease and Ooglvies who is S/P R TKA on 07/23 POD#0 s/p R TKA- pain control/ PT/OT Parkinsons- continue home dose of sinemet 5 times daily, billie and romero
[2016-07-23] MEDS: FERROUS GLUCONATE 324 MG TAB PO SCH ×2 (12:56→17:32)
--- NOTE | 2016-07-23 13:09 | PROGRESS NOTE ---
DATE: 07/23/2016 SUBJECTIVE: Status post right total knee replacement. At this point in time, the patient is sitting up in bed trying to eat. He is clearly limited by his Parkinson's disease. He denies any chest pain, shortness of breath, fevers, chills, nausea, vomiting or headache. Vital signs are stable. He is afebrile. Neurovascular check femoral sciatic nerve is excellent. Wound dressing clean, dry and intact. Postop x-rays look excellent. ASSESSMENT: Overall, doing well. Continue with care pathway. Attempts to contact family, spouse were not successful. Apparently, she has an appointment per the . Will need placement assessment YOLANDE based on his fall risk and his Parkinson's disease.
[2016-07-23] MEDS ORDERED: MoRPHine SULFATE 4 MG/ML 1 ML CARP\\VIAL IV PRN (14:00)
[2016-07-23] MEDS: CARBIDOPA/LEVODOPA 25/100MG TAB PO SCH ×2 (14:50→18:46)
[2016-07-23] MEDS ORDERED: OXYC-57 PO (15:33)
[2016-07-23] MEDS ORDERED: TRANEXAMIC ACID INJ 1,000 MG in SODIUM CHLORIDE 0.9% 100ML 100 ML IV SCH (16:00)
[2016-07-23] MEDS ORDERED: WARFARIN SOD 5 MG TAB PO ONE (16:00)
[2016-07-23] MEDS: CEFAZOLIN IV 2,000 MG in DEXTROSE 5% 50ML 50 ML IV SCH ×2 (16:40→23:23)
[2016-07-23] MEDS: KETOROLAC TROMETHAMINE 15 MG/ML VIAL IV. SCH ×2 (17:33→23:23)
[2016-07-23] MEDS ORDERED: NURSING DECISION MEDICATION ORDER SCH (18:30)
[2016-07-23] MEDS ORDERED: MICONAZOLE NITRATE POWDER 43 GM EXT PRN (18:45)
[2016-07-23] MEDS: DOCUSATE SODIUM 100 MG CAP PO SCH (20:46)
[2016-07-23] MEDS: TAMSULOSIN HCL 0.4 MG CAP PO SCH (20:47)
[2016-07-23] MEDS: BENZTROPINE MESYLATE 1 MG TAB PO SCH (20:48)
[2016-07-23] MEDS ORDERED: NURSING VERBAL MED ORDER ONE (21:15)
[2016-07-23] MEDS: ROPINIROLE HCL 1 MG TAB PO SCH (23:20)
[2016-07-24] VITALS (7 sets, daily range): BP systolic 93–116; BP diastolic 49–65; PULSE 66–79; TEMP 36.5–37.1; O2SAT 91–96
[2016-07-24] MEDS: CARBIDOPA/LEVODOPA 50/200MG EXT REL TAB PO SCH ×2 (00:06→23:25)
[2016-07-24] MEDS: ROPINIROLE HCL 1 MG TAB PO SCH ×2 (00:06→23:25)
[2016-07-24] MEDS: OXYCODONE HCL IR 5 MG TAB (IMMEDIATE RELEASE) PO PRN ×4 (00:29→23:25)
[2016-07-24] MEDS: KETOROLAC TROMETHAMINE 15 MG/ML VIAL IV. SCH ×2 (05:35→12:07)
[2016-07-24 06:07] LABS: HEMATOCRIT 30.1 % (42-52); MEAN CELL VOLUME 90.1 fL (80-100); MEAN CORPUSCULAR HEMOGLOBIN 30.8 pg (25-34); MEAN CORPUSCULAR HGB CONC 34.2 g/dl (32-36); MEAN PLATELET VOLUME 11.6 fL (7.4-10.4); PLATELET COUNT 228 K/uL (130-400); RED BLOOD COUNT 3.34 M/uL (4.7-6.1); WHITE BLOOD COUNT 12.13 K/uL (4.8-10.8)
[2016-07-24 06:15] LABS: INR 1.2 (0.9-1.1); PROTHROMBIN TIME (PATIENT) 12.4 SECONDS (9.0-12.0)
[2016-07-24 06:43] LABS: BUN/CREATININE RATIO 23.4 (10-20); CALCIUM 8.1 mg/dl (8.5-10.1); CREATININE 0.62 mg/dl (0.60-1.40); POTASSIUM 4.1 mmol/L (3.5-5.1)
--- NOTE | 2016-07-24 07:25 | PROGRESS NOTE ---
DATE: 07/24/2016 Postop day 1 status post right total knee replacement. At this point in time the patient is awake, alert. He in his usual state of health with his Parkinson's disease. He denies any chest pain, shortness of breath, fever, chills, nausea, vomiting or headache. Vital signs are stable, he is afebrile. Wound dressing clean, dry and intact. Neurovascular check is baseline for him. Hematocrit stable at 30 range. INR is at 1.2. Electrolytes are pending. ASSESSMENT: Overall, doing reasonably well. The patient will be complicated by the fact he has significant Parkinson's disease and is a high risk for falls. This patient will need skilled level nursing and rehab type facilities to transition from. Likely transition from rehab to skilled and then to home. pharmacy services director will evaluate this. Potential discharge any time when bed is available.
[2016-07-24] MEDS ORDERED: DEXAMETHASONE INJ 10 MG in SYRINGE 0 ML IV SCH (07:30)
--- NOTE | 2016-07-24 07:44 | DISCHARGE SUMMARY ---
DISCHARGE AND TRANSFER SUMMARY DATE OF DISCHARGE: To be determined. CHIEF COMPLAINT: Right knee pain. HISTORY OF PRESENT ILLNESS: A 70-year-old male who presents for elective right total knee replacement for severe end stage patellofemoral arthropathy with chronic subluxation and pain with rest and with any movement of his knee. He is a high risk patient based on his comorbidities including Parkinson's disease. He has had fallen significantly. He feels that he cannot even use his right leg to help him balance anymore because of the discomfort that is there with any kind of pressure. PAST MEDICAL HISTORY: Remarkable for osteoarthritis, anemia, Parkinson's disease, lymphedema, abdominal hernia, history of alcohol use, BPH, erectile dysfunction, seborrheic keratoses and history of periprosthetic hip fracture with hip replacements. PAST SURGICAL HISTORY: Include total shoulder arthroplasty, sigmoidoscopy, cubital tunnel release bilaterally, hip replacement bilaterally, periprosthetic fracture on the left post traumatic fall, appendectomy. PREADMISSION MEDICATIONS: Include benztropine, Sinemet, Celebrex, CoQ 10, fish oil, Flomax, ketoconazole, melatonin, Rock, Requip, Sinemet, vitamin B12, vitamin C, vitamin D, vitamin E. He will continue all those medications with the exception of Celebrex. He will use Coumadin to keep INR 1.8-2.2. With fall risk he can be transitioned to Lovenox if he is in an environment where they can adjust that and give it to him daily, otherwise would keep him on Coumadin. ALLERGIES: DILAUDID. 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 He is . He does not smoke, does not drink. He did have alcohol use in the past but has none recent. FAMILY HISTORY: Remarkable for heart disease. REVIEW OF SYSTEMS: Reveals no chest pain, shortness of breath, fever, chills, nausea, vomiting, or headache. ASSESSMENT: Status post right knee replacement for severe patellofemoral arthropathy with chronic subluxation of his patella. At this point in time, he has done well with the procedure. He is at high risk for falling based on his Parkinson's disease. He will need to be managed and transitioned from acute hospital stay to rehab type facility or penitentiary facility with rehab available. He will follow up with us in the office in 2 weeks for staple removal. Coumadin per nomogram today. Discharge on 4 mg of Coumadin daily, keep INR 1.8-2.2. If medical coverage prefers using heparin or Lovenox without Coumadin I would be agreeable to that. Can transition to aspirin 325 b.i.d., as well with ulcer risk need to be cognizant of that.
--- NOTE | 2016-07-24 08:09 | Orthopedic Progress Note ---
Orthopedic Progress Note Date of Service Jul 24, 2016. Subjective Post OP Day: 1 Reports: feeling well, pain controlled w PO medications, Denies: SOB, calf pain , chest pain, complaints, light headedness, nausea / vomiting Additional Notes: States he feels quite good. Has only taken "one pain pill" Objective calves soft nontender, N/V intact, capillary refill less than 2 sec., dressing C /D/I, incision C/D/I, A&O x3, toes mobile, CMS intact Dressing dry, scant drainage Date Time Temp Pulse Resp B/P Pulse Ox O2 Delivery O2 Flow Rate FiO2 07/24/16 03:30 36.6 67 18 94/51 93 Nasal Cannula 4.0 07/24/16 00:00 92 Nasal Cannula 4.0 07/23/16 23:55 36.4 78 20 103/62 84 Room Air 07/23/16 19:20 Nasal Cannula 4.0 07/23/16 18:57 36.4 83 17 111/64 93 Nasal Cannula 4.0 07/23/16 17:47 Nasal Cannula 07/23/16 15:33 36.3 56 16 101/59 98 Nasal Cannula 4.0 07/23/16 14:30 72 16 104/64 94 Nasal Cannula 4.0 07/23/16 13:30 94 16 115/65 95 Nasal Cannula 4.0 07/23/16 12:36 72 16 104/66 95 Nasal Cannula 4.0 07/23/16 12:00 73 18 112/68 93 Nasal Cannula 4.0 07/23/16 11:30 Nasal Cannula 4.0 07/23/16 11:30 Nasal Cannula 4.0 07/23/16 11:21 67 15 93 07/23/16 11:21 70 15 07/23/16 11:20 118/66 07/23/16 11:16 68 15 92 07/23/16 11:16 70 15 07/23/16 11:15 110/67 07/23/16 11:11 71 21 07/23/16 11:11 37.0 07/23/16 11:11 71 21 92 07/23/16 11:10 107/65 07/23/16 11:07 72 21 92 07/23/16 11:07 71 21 07/23/16 11:05 107/66 07/23/16 11:02 71 24 07/23/16 11:02 71 24 93 07/23/16 11:00 109/70 07/23/16 10:57 69 20 92 07/23/16 10:57 70 20 07/23/16 10:55 112/65 07/23/16 10:52 69 21 07/23/16 10:52 69 21 92 07/23/16 10:51 67 22 92 07/23/16 10:51 69 22 07/23/16 10:50 114/66 07/23/16 10:46 67 13 07/23/16 10:46 66 13 92 07/23/16 10:45 119/68 07/23/16 10:41 67 15 92 07/23/16 10:41 67 15 07/23/16 10:40 111/66 07/23/16 10:39 67 19 92 07/23/16 10:39 67 19 07/23/16 10:35 121/71 07/23/16 10:34 71 18 92 07/23/16 10:34 70 18 07/23/16 10:31 115/67 07/23/16 10:29 70 20 93 07/23/16 10:29 70 20 07/23/16 10:25 116/67 07/23/16 10:24 69 20 07/23/16 10:24 71 20 95 07/23/16 10:20 110/61 07/23/16 10:19 70 20 07/23/16 10:19 71 20 95 07/23/16 10:19 36.6 72 16 112/69 98 Mask Laboratory Results 24 Hours: Test 07/24/16 05:20 Hematocrit 30.1 % Hemoglobin 10.3 g/dL Prothromb Time International Ratio 1.2 Prothrombin Time 12.4 SECONDS Assessment & Plan Assessment: Right knee post op day 1 total knee arthroplasty Plan: PT/OT today waiting on insurance auth for placement coumadin per nomogram dressing changed this morning-wound looks very good continue knee immobilizer when OOB Discharge Planning Discharge Planning: rehab hospital Pain Management: Percocet DVT Prophylaxis: TEDs, SCDs, Coumadin Therapy: Physical Therapy, Occupational Therapy
[2016-07-24] MEDS: FERROUS GLUCONATE 324 MG TAB PO SCH ×3 (08:34→17:42)
[2016-07-24] MEDS: CYANOCOBALAMIN 500 MCG TAB (VIT B-12) PO SCH (08:34)
[2016-07-24] MEDS: CARBIDOPA/LEVODOPA 25/100MG TAB PO SCH ×5 (08:34→21:29)
[2016-07-24] MEDS: DOCUSATE SODIUM 100 MG CAP PO SCH ×2 (08:35→20:36)
[2016-07-24] MEDS: PANTOprazole SOD 40 MG TAB PO SCH (08:35)
[2016-07-24] MEDS: BENZTROPINE MESYLATE 1 MG TAB PO SCH ×2 (08:35→20:37)
[2016-07-24] MEDS: MULTIVITAMIN TAB PO SCH (08:35)
[2016-07-24] MEDS ORDERED: CARBIDOPA/LEVODOPA 25/100MG TAB PO SCH (09:00)
[2016-07-24] MEDS ORDERED: BENZTROPINE MESYLATE 1 MG TAB PO SCH (09:00)
--- NOTE | 2016-07-24 10:34 | Anesthesiology Progress Note ---
Anesthesia Post Op Note Date & Time Jul 24, 2016 at 10:33 Vital Signs Pain Intensity: 0.0 Vital Signs Past 12 Hours Date Time Temp Pulse Resp B/P Pulse Ox O2 Delivery O2 Flow Rate FiO2 07/24/16 07:30 Nasal Cannula 4.0 07/24/16 07:00 36.6 70 18 93/49 92 Room Air 07/24/16 03:30 36.6 67 18 94/51 93 Nasal Cannula 4.0 07/24/16 00:00 92 Nasal Cannula 4.0 07/23/16 23:55 36.4 78 20 103/62 84 Room Air Notes Mental Status: alert / awake / arousable, participated in evaluation Pt Amnestic to Procedure: Yes Nausea / Vomiting: adequately controlled Pain: adequately controlled Airway Patency, RR, SpO2: stable & adequate BP & HR: stable & adequate Hydration State: stable & adequate Neuraxial Anesthesia: sensory block resolved Anesthetic Complications: no major complications apparent
[2016-07-24] MEDS ORDERED: WARFARIN SOD 5 MG TAB PO SCH ×2 (16:00)
--- NOTE | 2016-07-24 16:30 | Hospitalist Progress Note ---
Hospitalist Progress Note Date of Service Jul 24, 2016. Subjective Pt evaluation today including: conversation w/ patient Patient had no acute issues overnight Constitutional: No fever Eyes: No worsening of vision ENT: No hearing loss Respiratory: No cough, No shortness of breath Cardiovascular: No chest pain Abdomen: No pain Male : No dysuria Neurologic: No memory loss Objective Vital Signs Date Time Temp Pulse Resp B/P Pulse Ox O2 Delivery O2 Flow Rate FiO2 07/24/16 15:07 36.6 69 16 102/62 96 2.0 07/24/16 11:06 36.5 66 18 106/57 94 Room Air 07/24/16 10:14 77 91 07/24/16 07:30 Nasal Cannula 4.0 07/24/16 07:00 36.6 70 18 93/49 92 Room Air 07/24/16 03:30 36.6 67 18 94/51 93 Nasal Cannula 4.0 07/24/16 00:00 92 Nasal Cannula 4.0 07/23/16 23:55 36.4 78 20 103/62 84 Room Air 07/23/16 19:20 Nasal Cannula 4.0 07/23/16 18:57 36.4 83 17 111/64 93 Nasal Cannula 4.0 07/23/16 17:47 Nasal Cannula Physical Exam General Appearance: WD/WN, no apparent distress Eyes: normal inspection ENT: normal ENT inspection Neck: supple Respiratory/Chest: chest non-tender Cardiovascular: regular rate, rhythm Abdomen: normal bowel sounds, non tender Extremities: normal range of motion, non-tender Neurologic/Psychiatric: mat packer II-XII nml as tested, no motor/sensory deficits, alert, oriented x 3 Laboratory Results Last 24 Hours Test 07/24/16 05:20 White Blood Count 12.13 K/uL Red Blood Count 3.34 M/uL Hemoglobin 10.3 g/dL Hematocrit 30.1 % Mean Corpuscular Volume 90.1 fL Mean Corpuscular Hemoglobin 30.8 pg Mean Corpuscular Hemoglobin Concent 34.2 g/dl RDW Standard Deviation 45.0 fL RDW Coefficient of Variation 13.6 % Platelet Count 228 K/uL Mean Platelet Volume 11.6 fL Prothrombin Time 12.4 SECONDS Prothromb Time International Ratio 1.2 Sodium Level 140 mmol/L Potassium Level 4.1 mmol/L Chloride Level 107 mmol/L Carbon Dioxide Level 26 mmol/L Anion Gap 7.0 mmol/L Blood Urea Nitrogen 15 mg/dl Creatinine 0.62 mg/dl Est Creatinine Clear Calc Drug Dose 174.0 ml/min Estimated GFR () 115.7 Estimated GFR (Non- 99.8 BUN/Creatinine Ratio 23.4 Random Glucose 111 mg/dl Calcium Level 8.1 mg/dl Hepatitis C Antibody Screen NEG Assessment and Plan Mr. Umanzor is a 70 y/o male with PMHx of Idiopathic Parkinson's Disease, Normocytic/chromic Anemia, Lymphedema, and BPH who is S/P R TKA. POD#1 S/P R TKA: - Pain management -PT/OT - DVT prophylaxis per primary Idiopathic Parkinson's Disease: - Sinemet 25/100 mg Q3H 5 times daily and Sinemet 50/100 mg daily at midnight - Cogentin 0.5 mg BID - Requip 0.5 mg - one dose 15 minutes prior to midnight and second dose 15 minutes after midnight Normocytic/Normochromic Anemia: Anemia of Chronic Disease: STABLE - Ferrous gluconate 324 mg TID BPH: - Flomax 0.4 mg HS Disposition- anticipate d/c to [facility] when bed available
[2016-07-24] MEDS: TAMSULOSIN HCL 0.4 MG CAP PO SCH (20:36)
[2016-07-24] MEDS ORDERED: NURSING VERBAL MED ORDER ONE (22:00)
[2016-07-25] MEDS: ROPINIROLE HCL 1 MG TAB PO SCH (00:01)
[2016-07-25] MEDS: OXYCODONE HCL IR 5 MG TAB (IMMEDIATE RELEASE) PO PRN ×2 (04:38→09:04)
[2016-07-25 05:44] LABS: INR 1.8 (0.9-1.1); PROTHROMBIN TIME (PATIENT) 19.3 SECONDS (9.0-12.0)
[2016-07-25] MEDS ORDERED: CARBIDOPA/LEVODOPA 25/100MG TAB PO SCH ×2 (06:00→09:00)
--- NOTE | 2016-07-25 06:42 | PROGRESS NOTE ---
DATE: 07/25/2016 Postop day #2 status post right total knee replacement. At this point in time, the patient is relatively comfortable. He notes that there was some error in the dosing of his Parkinson's meds; that has not been corrected. He states he is stiffer for a while. He denies any chest pain, shortness of breath, fever, chills, nausea, vomiting or abdominal pain. He is passing gas. His vital signs are stable and he is afebrile. Abdomen is soft and nontender. Calves are nontender. Wound dressing is clean, dry and intact. Neurovascular check distally normal. INR this morning is 1.8. ASSESSMENT: Overall, doing reasonably well. Limitations secondary to significant problem , Parkinson's disease. We will need placement today. Coumadin per nomogram. Keep INR 2.2 or less please. MTDD
--- NOTE | 2016-07-25 06:51 | DISCHARGE SUMMARY ---
ADDENDUM: At this point in time the patient is awaiting placement and insurance approval to [facility] or [facility] [place]. At this point, from a medical perspective he is stable for discharge. Awaiting insurance approval. Delays have been secondary to insurance issues.
[2016-07-25 07:09] VITALS: BP 103/62; PULSE 64; TEMP 36.7; O2SAT 94
[2016-07-25 07:55] VITALS: BP 103/62; PULSE 64; TEMP 36.7; O2SAT 94
[2016-07-25] MEDS ORDERED: WARF2TAB PO (07:57)
--- NOTE | 2016-07-25 07:59 | Discharge Instructions ---
Discharge Instructions Date of Service Jul 23, 2016. Admission Reason for Admission: Right Knee Osteoarthritis Discharge Discharge Diagnosis / Problem: Right knee s/p total knee replacement Discharge Goals Goal(s): Decrease discomfort, Improve function, Increase independence Activity Recommendations Activity Level: Assistance Required Therapies: Physical Therapy, Weight Bearing Status (WBAT Right leg), Occupational Therapy Weightbearing Status: Right weightbearing (as tolerated) Exercise/Sports Limitations: until after follow-up appointment Shower/Bathe: keep incision dry New Medicine: * You will likely be taking one or more of these medications: 1. Percocet - Take, as directed, when you need it, every four to six hours to control your pain. 2. Coumadin - Thins your blood to lessen the chance of forming a blood clot. The dose of this is different for each person and is based on your blood tests that are done twice a week. * The most common side effects of pain medicine and iron are nausea and constipation. If nausea or constipation is too much of a problem or if you have any questions about your new medicines or doses, call [facility] at . We will try to help you manage these issues. VERY IMPORTANT TO READ AND REVIEW" Blood Clots and Blood Thinning Medicine: * You are given Coumadin during the immediate post-operative period to lessen the risk of blood clots forming in your legs and/or lungs. Coumadin is usually given for six weeks after surgery. * The prescription is for 2 mg tablets. At discharge, you should understand your dose and take it all at the same time every day, preferably after dinner. * You need to get your blood checked 1 - 2 times per week for six weeks or as directed. * If your dose needs to change, we will call you. Do not take your medication on the day of the blood test until we call you. Pain: * The immediate post-operative period after knee replacement surgery is often quite painful. * You are given a prescription for pain medicine. You should take it, as directed, when you need it, especially before physical therapy and before going to bed. Pain that interferes with sleep is very common and can last several months. * You will likely need pain medicine for the first four to six weeks. It will not stop all of the pain. The pain will lessen and as you feel better, you may change to milder pain medicine such as Tylenol. * The most common side effects of pain medicine are nausea and constipation, so don't take more than you need. Physical Therapy: * You will have physical therapy two or three times each week for four to six weeks after your surgery in order to regain your knee range of motion and to retrain your knee to work properly. * It is just as important to make sure you are getting your knee perfectly straight as it is to regain your knee bend. * Taking a pain pill an hour before therapy can help you have a more productive and comfortable therapy session if needed. Home Exercise: * You were shown a series of exercises (heel props, heel slides, etc.) in the hospital. Do these exercises three to four times each day including the exercises you were shown in physical therapy. Walking: * Get up and walk several times each day. For the first four weeks, try not to stand or walk for more than one hour at a time. If you do stand or walk for more than one hour, you will not hurt anything, but your knee and leg will likely swell. * As you feel comfortable, you may change from the walker or crutches to a cane and then to independent walking. SELF CARE INSTRUCTIONS AFTER TOTAL KNEE REPLACEMENT A. You may need to continue a physical therapy program after discharge from the hospital. There are several options available to you. Your doctor will assist you in selecting the best one for you. 1. An out-patient facility 2 to 3 times a week for therapy or home therapy. 2. Continue working on all exercises taught to you in the hospital. Your goals should be to increase bending of your knee to 90 degrees and beyond and to fully straighten your knee. B. You may progress at your own pace from walking with a walker or crutches to a cane; then to no assistive devices. C. Make walking a part of your daily routine. Be up as much as comfortable with rest periods throughout the day. Rest with leg elevation is very important. Use the ice wrap frequently for the first 3-4 weeks. D. There are no restrictions on activities. You may ride in a car, shop, participate in record cutter and all social activities. E. Wear the long elastic stockings (EDUARDO hose) 20 hours a day for six weeks after surgery. They can be removed several times a day for laundering and for a shower. F. Do not place a pillow behind your knee when resting. A pillow at your ankle is okay. VERY IMPORTANT TO READ AND REVIEW A. Take Coumadin, Aspirin or Lovenox (blood thinning medications) as directed by your doctor. If on Coumadin, have a pro-time (blood test) drawn according to your doctor's instructions. This will tell the doctor how well the Coumadin is thinning your blood. 1. YOU WILL BE GIVEN AN ORDER AT DISCHARGE FOR PT/INR (BLOOD WORK). PLEASE HAVE THIS DONE INSTRUCTED. PLEASE CALL OUR OFFICE AFTER YOUR BLOODWORK IS COMPLETE SO WE CAN TRACK YOUR RESULTS. IF YOU ARE GOING TO OUTPATIENT PHYSICAL THERAPY, YOU WILL NEED TO GO TO OUTPATIENT TESTING TO HAVE IT DRAWN. B. There are a few signs you need to watch for after you are home. Call [facility] if you notice any of the followin. Increased severe knee pain. Some pain is expected especially when you exercise. 2. Increased swelling in your leg or knee; pain or swelling of the calf muscle in either lower leg. 3. Any fluid drainage from the incision. 4. Shortness of breath or chest pain. C. Please call [facility] at if you have any concerns or questions about your operation or recovery. The doctor or his nurse will return your call promptly. D. You must take antibiotics before dental work, bladder, bowel or other surgery. Call the office to obtain a prescription at least 2 days prior to your appointment. * CALL IF INCREASED PAIN, REDNESS, DRAINAGE OR FEVER GREATER THAT 101. * Sutures should be removed 12-14 days after surgery unless you are on chronic steriods, then it will be 14-18 days after surgery. Call your doctor if: * Temperature above 101 degrees F. * Pain not relieved by pain medicine ordered. * Increased drainage or redness from incision. * Notify your doctor with any questions or concerns. Additional Information Patient informed of condition: Yes Advance Directives: Yes DNR: No Level of Care: Acute Rehab Communicable Disease: No Prognosis: Stable Phipps Catheter: No Current Hospital Diet Patient's current hospital diet: AHA Diet (Heart Healthy) Discharge Diet Recommended Diet: AHA Diet (Heart Healthy) Procedures Procedures Performed: Right Total Knee Arthroplasty Pending Studies Studies pending at discharge: no Physician Orders On Transfer Dressing Changes: as needed for soiling Vital Signs: per facility routine POLST Discussion: Not Applicable Medical Emergencies . Who to Call and When: Medical Emergencies: If at any time you feel your situation is an emergency, please call 911 immediately. . Non-Emergent Contact Non-Emergency issues call your: Primary Care Provider Call Non-Emergent contact if: temperature is above 101, wound has increased drainage, wound has increased redness, wound has increased pain, you have any medication questions . . "Provider Documentation" section prepared by Chuy Montoya PA-C. Core Measure Problem Core Measures: None [place] Drug Monitoring Program Search Results: no issues identified
--- NOTE | 2016-07-25 08:16 | Orthopedic Progress Note ---
Orthopedic Progress Note Date of Service Jul 25, 2016. Subjective Post OP Day: 2 Reports: feeling well, Denies: SOB, calf pain, chest pain, complaints, light headedness, nausea / vomiting Additional Notes: Sitting in chair at bedside Objective calves soft nontender, N/V intact, capillary refill less than 2 sec., dressing C /D/I, incision C/D/I, A&O x3, toes mobile, CMS intact No drainage on bandages Date Time Temp Pulse Resp B/P Pulse Ox O2 Delivery O2 Flow Rate FiO2 07/25/16 07:55 36.7 64 15 94 Room Air 07/25/16 07:09 36.7 64 15 103/62 94 Room Air 07/24/16 23:25 Room Air 07/24/16 23:14 37.1 79 18 116/65 92 Room Air 07/24/16 15:15 Nasal Cannula 2.0 07/24/16 15:07 36.6 69 16 102/62 96 2.0 07/24/16 11:06 36.5 66 18 106/57 94 Room Air 07/24/16 10:14 77 91 Laboratory Results 24 Hours: Test 07/25/16 05:03 Prothromb Time International Ratio 1.8 Prothrombin Time 19.3 SECONDS Assessment & Plan Assessment: Right knee post op day 2 total knee arthroplasty Plan: Approved for [facility], leaving this morning by wheelchair van. coumadin per nomogram dressing changed this morning-wound looks very good, no drainage May discontinue knee immobilizer when OOB if patient desires. Discharge Planning Discharge Planning: rehab hospital Pain Management: Percocet DVT Prophylaxis: TEDs, SCDs, Coumadin Therapy: Physical Therapy, Occupational Therapy
[2016-07-25] MEDS: FERROUS GLUCONATE 324 MG TAB PO SCH (08:20)
[2016-07-25] MEDS: DOCUSATE SODIUM 100 MG CAP PO SCH (08:21)
[2016-07-25] MEDS: CYANOCOBALAMIN 500 MCG TAB (VIT B-12) PO SCH (08:22)
[2016-07-25] MEDS: MULTIVITAMIN TAB PO SCH (08:23)
[2016-07-25] MEDS: PANTOprazole SOD 40 MG TAB PO SCH (08:23)
[2016-07-25] MEDS: BENZTROPINE MESYLATE 1 MG TAB PO SCH (08:24)
[2016-07-25] MEDS ORDERED: WARFARIN SOD 1 MG TAB PO SCH (16:00)
[2016-09-13] MEDS ORDERED: FERR1TAB23 PO (09:40)
[2016-09-13] MEDS ORDERED: IMD/2 PO (09:40)
[2016-09-13] MEDS ORDERED: BENZ0.5T2 PO (09:42)
[2016-09-16] MEDS ORDERED: HYDR-4383 PO (13:41)
== END 2016-07-25 09:20 | DRG 470 ==
LOC: ENRESERVTM → ENRESERVDT → C.ACU 06:12 → C.3E 06:20
PROVIDERS: ADMIT Physical Medicine & Rehabilitation Sports Medicine; ATTEND Physical Medicine & Rehabilitation Sports Medicine
PROC: 0SRC0J9 Replacement of Right Knee Joint with Synthetic Substitute, Cemented, Open Approach (ICD-10-PCS; principal; 2016-07-23 08:50)
DX: M17.11 Unilateral primary osteoarthritis, right knee (principal); G20 Parkinson's disease; N40.0 Benign prostatic hyperplasia without lower urinary tract symptoms; Z96.643 Presence of artificial hip joint, bilateral; Z90.49 Acquired absence of other specified parts of digestive tract; L82.1 Other seborrheic keratosis; N52.9 Male erectile dysfunction, unspecified; Z79.899 Other long term (current) drug therapy; Z82.49 Family history of ischemic heart disease and other diseases of the circulatory system; Z88.5 Allergy status to narcotic agent; Z88.8 Allergy status to other drugs, medicaments and biological substances; D63.8 Anemia in other chronic diseases classified elsewhere

== ENCOUNTER → 2016-09-22 | Outpatient (CLI) | payer OTHER, BC ==
[~2016-09-22] MED LIST changes: +BENZ0.5T2 PO; -BENZ1TAB2 PO; -CEFAZOLIN 2000 MG/60 ML D5W 60 ML IV SCH; -CLB/200 PO; +FERR1TAB23 PO; +HYDR-4383 PO; +IMD/2 PO; -LACTATED RINGER'S 1000ML 1,000 ML IV SCH; -LACTATED RINGER'S 1000ML 500 ML IV ONE; -LACTATED RINGER'S 1000ML IV SCH; -OMEG10007 PO; +OXYC-57 PO; -ROPIVACAINE 5MG/ML 30 ML 150 MG, BUPIVACAINE/EPINEPHR 0.5% MPF 30 ML, KETOROLAC TROMETH... INFIL SCH; -TRANEXAMIC ACID INJ 1,000 MG in SODIUM CHLORIDE 0.9% 100ML 100 ML IV SCH
== END | disposition home or self-care (01) ==
LOC: C.RDSM 14:28
PROVIDERS: ATTEND Physical Medicine & Rehabilitation Sports Medicine
DX: M16.9 Osteoarthritis of hip, unspecified (principal)

== ENCOUNTER → 2016-10-06 | Outpatient (CLI) | payer BC, OTHER ==
[~2016-10-06] MED LIST changes: -HYDR-4383 PO
== END | disposition home or self-care (01) ==
LOC: C.RDSM 14:05
PROVIDERS: ATTEND Physical Medicine & Rehabilitation Sports Medicine
DX: S72.111A Displaced fracture of greater trochanter of right femur, initial encounter for closed fracture (principal); X58.XXXA Exposure to other specified factors, initial encounter; M17.0 Bilateral primary osteoarthritis of knee; Z96.643 Presence of artificial hip joint, bilateral

== ENCOUNTER → 2016-11-24 | Outpatient (CLI) | payer BC ==
[~2016-11-24] MED LIST changes: -BENZ0.5T2 PO; +CGN5X PO
--- NOTE | 2016-12-19 10:25 | CODING QUERY MEDICAL NECESSITY ---
CQSUPPORTING DIAGNOSIS NEEDED A supporting diagnosis is required for the test/procedure performed on this patient in order for us to be reimbursed by the patient's insurance. Please provide a supporting diagnosis for the following test/procedure listed below next to the test name along with your signature. *If there is no additional diagnosis for this patient that would support the following test/procedure please document that below next to the test/procedure. Test(s)/Procedure(s) that require a supporting diagnosis: DOS 11/24/16 BONE MINERAL DENSITY STUDIES Provider Signature: Date: Thank you Judi Scales Health Information Management Once completed, please kindly fax back to [phone] For questions please call [phone]
== END | disposition home or self-care (01) ==
LOC: C.MAMM 12:55
PROVIDERS: ATTEND Internal Medicine
DX: T14.8 Other injury of unspecified body region (principal); X58.XXXA Exposure to other specified factors, initial encounter

== ENCOUNTER → 2016-12-08 | Outpatient (CLI) | payer BC | END | disposition home or self-care (01) | LOC: C.RDSM 11:42 | PROVIDERS: ATTEND Physical Medicine & Rehabilitation Sports Medicine | DX: S72.111A Displaced fracture of greater trochanter of right femur, initial encounter for closed fracture (principal); X58.XXXA Exposure to other specified factors, initial encounter; Z96.643 Presence of artificial hip joint, bilateral ==

== ENCOUNTER → 2017-06-08 | Outpatient (CLI) | payer BC ==
[~2017-06-08] MED LIST changes: +BENZ0.5T2 PO; -CGN5X PO; -OXYC-57 PO
== END | disposition home or self-care (01) ==
LOC: C.RDSM 13:00
PROVIDERS: ATTEND Physical Medicine & Rehabilitation Sports Medicine
DX: S72.111A Displaced fracture of greater trochanter of right femur, initial encounter for closed fracture (principal); M16.9 Osteoarthritis of hip, unspecified; Z96.643 Presence of artificial hip joint, bilateral; X58.XXXA Exposure to other specified factors, initial encounter

== ENCOUNTER 2017-11-12 09:46 | Inpatient (IN) | payer BC, OTHER ==
[~2017-11-12] VITALS: Ht 175.3 cm; Wt 91.6 kg
[~2017-11-12 09:46] MED LIST changes: -ASCO10003; +ASCO10003 PO
[2017-11-12] MEDS ORDERED: PROB1TAB16 PO (10:29)
[2017-11-12] MEDS ORDERED: SODIUM CHLORIDE 0.9% 1000ML 1,000 ML IV STA (10:57)
[2017-11-12 11:05] LABS: CALCIUM 8.7 mg/dl (8.5-10.1); CREATININE 1.13 mg/dl (0.60-1.40); POTASSIUM 4.4 mmol/L (3.5-5.1)
--- NOTE | 2017-11-12 11:06 | DIAGNOSTIC IMAGING REPORT ---
CHEST ONE VIEW PORTABLE CLINICAL HISTORY: SOB dyspnea COMPARISON STUDY: 09/12/2015 FINDINGS: Mild stable cardia megaly. Mild chronic bibasilar interstitial change. No focal infiltrate. Mid and upper lungs are clear. IMPRESSION: Mild stable cardiomegaly. Chronic change. No acute process. The above report was generated using voice recognition software. It may contain grammatical, syntax or spelling errors. Electronically signed by: Nicholas Johnson M.D. 11/12/2017 11:04 AM Dictated Date/Time: 11/12/2017 11:03 AM
[2017-11-12] MEDS ORDERED: LEVALBUTEROL 1.25MG/0.5ML NEB INH STA (11:15)
[2017-11-12] MEDS ORDERED: IPRATROPIUM BROMIDE NEB SOLN 0.02% 2.5 ML VIAL INH STA (11:15)
--- NOTE | 2017-11-12 11:16 | EMERGENCY ROOM VISIT NOTE ---
History Report prepared by Ana: Porfirio Carias Under the Supervision of: Dr. Isaias Tompkins M.D. First contact with patient: 10:49 Chief Complaint: WEAKNESS Stated Complaint: SHORTNESS OF BREATH History of Present Illness The patient is a 72 year old male who presents to the Emergency Room with complaints of constant weakness that began this morning prior to a fall. Patient states he began to lose strength in his legs causing him to fall to his knees. Patient denies any injuries and states he was using his walker during the fall. He adds he has felt SOB recently. Patient is present with his . states the patient fell yesterday and 5 days ago as well. adds the patient's urine has been "cloudy" and he has had a productive cough. She describes the productive cough as a "thick mucous". adds the patient must be "ordered" to eat and drink. Patient's past medical history includes Parkinson 's disease and UTIs. Patient states he does not normally wear oxygen. Patient denies a history of lung disease. Patient's PCP is Dr. Early. Patient denies any fevers, nausea, or vomiting. Source of History: patient Onset: This morning Position: leg (bilateral) Quality: other (Weakness) Timing: constant Modifying Factors (Relieving): other (None) Associated Symptoms: + cough (Productive), + SOB, + urinary symptoms, No fevers, No nausea, No vomiting Review of Systems See HPI for pertinent positives & negatives. A total of 10 systems reviewed and were otherwise negative. 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 (2) S/P appendectomy (3) S/P hip replacement (4) S/P ORIF (open reduction internal fixation) fracture Family History FH: heart disease Social History Smoking Status: Never Smoker Alcohol Use: occasionally Drug Use: none Marital Status: Housing Status: lives with family Occupation Status: retired Current/Historical Medications Scheduled Ascorbic Acid (Vitamin C), 1,000 MG PO QAM Benztropine Mesylate (Benztropine Mesylate), 0.5 MG PO QAM Carbidopa/Levodopa (Sinemet Cr 50MG/200MG), 1 TAB PO midnight Carbidopa/Levodopa (Sinemet 25MG/100MG), 1.5 TAB PO 5XD Cholecalciferol (Vitamin D3), 2,000 UNITS PO QAM Cyanocobalamin (Vitamin B12 500MCG), 1,000 MCG PO QAM Dutasteride (Avodart), 0.5 MG PO NOON Probiotic Product (Probiotic), 1 TAB PO QAM Ropinirole (Requip), 0.5 MG PO UD Tamsulosin Hcl (Flomax), 0.4 MG PO HS Vitamin E (E-400), 400 UNITS PO QAM Scheduled PRN Loperamide Hcl (Imodium), 2 MG PO DAILY PRN for Diarrhea Allergies Coded Allergies: Poison Nguyen Extract/Poison Troy Extra (Verified Allergy, Severe, rash, itchy , 11/12/17) Does not need to have physical contact to have reaction. Hydromorphone (Verified Allergy, Unknown, hives on trunk, 11/12/17) POLLEN (Verified Allergy, Unknown, SNEEZING,RUNNY NOSE, 11/12/17) G.Domesticus Dust Mite (Verified Adverse Reaction, Intermediate, Sneeze, cough, 11/12/17) Physical Exam Vital Signs Date Time Temp Pulse Resp B/P (MAP) Pulse Ox O2 Delivery O2 Flow Rate FiO2 11/12/17 13:30 96 30 112/67 93 Nasal Cannula 2.0 11/12/17 13:25 92 11/12/17 12:00 103 22 107/75 93 Nasal Cannula 2.0 11/12/17 11:36 100 22 93 Nasal Cannula 2.0 11/12/17 10:29 94 Nasal Cannula 2.0 11/12/17 10:29 Nasal Cannula 2.0 11/12/17 10:17 37.1 101 20 94/61 90 Room Air 11/12/17 09:55 108 Physical Exam GENERAL: Patient is in no acute distress. HEENT: No acute trauma, normocephalic atraumatic, mucous membranes are dry, no nasal congestion, no scleral icterus. NECK: No stridor, no adenopathy, no meningismus, trachea is midline. LUNGS: Clear to auscultation bilaterally, no wheeze, no rhonchi, breath sounds equal. HEART: Without murmurs gallops or rubs, regular rate and rhythm. ABDOMEN: Soft, nontender, bowel sounds positive, nontender mid-upper abdominal wall hernia, no peritonitis. EXTREMITIES: No cyanosis or edema, full range of motion of all the joints without pain or difficulty, no signs for acute trauma. NEUROLOGIC: Oriented x 3, no acute motor or sensory deficits, no focal weakness. SKIN: No rash, no jaundice, no diaphoresis. Medical Decision & Procedures ER Provider Diagnostic Interpretation: Radiology results as stated below per my review and radiologist interpretation: (CHEST FOR PE) ANGIO WITH CT DOSE: 605.10 mGy.cm HISTORY: Chest pain dyspnea TECHNIQUE: Multiaxial CT images of the chest were performed following the intravenous administration of contrast to evaluate the pulmonary arteries. Maximal intensity projection images were also obtained. A dose lowering technique was utilized adhering to the principles of ALARA. COMPARISON STUDY: None. FINDINGS: Bulky bilateral pulmonary emboli. There is a saddle embolus. Mild bibasilar atelectatic and/or infiltrative change. Mild emphysematous change. IMPRESSION: 1. Bulky bilateral acute pulmonary emboli. 2. Sagittal embolus. 3. Nonspecific interstitial change both hemithoraces. 4. This report was phoned to the emergency room The above report was generated using voice recognition software. It may contain grammatical, syntax or spelling errors. Electronically signed by: Nicholas Johnson M.D. 11/12/2017 12:41 PM CHEST ONE VIEW PORTABLE CLINICAL HISTORY: SOB dyspnea COMPARISON STUDY: 09/12/2015 FINDINGS: Mild stable cardia megaly. Mild chronic bibasilar interstitial change. No focal infiltrate. Mid and upper lungs are clear. IMPRESSION: Mild stable cardiomegaly. Chronic change. No acute process. The above report was generated using voice recognition software. It may contain grammatical, syntax or spelling errors. Electronically signed by: Nicholas Johnson M.D. 11/12/2017 11:04 AM Laboratory Results 11/12/17 10:15 Red Blood Count 4.95, Mean Corpuscular Volume 91.5, Mean Corpuscular Hemoglobin 31.1, Mean Corpuscular Hemoglobin Concent 34.0, Mean Platelet Volume 12.2, Neutrophils (%) (Auto) 77.9, Lymphocytes (%) (Auto) 10.9, Monocytes (%) (Auto) 10.6, Eosinophils (%) (Auto) 0.2, Basophils (%) (Auto) 0.1, Neutrophils # (Auto ) 8.16, Lymphocytes # (Auto) 1.14, Monocytes # (Auto) 1.11, Eosinophils # (Auto ) 0.02, Basophils # (Auto) 0.01 11/12/17 10:15 Test 11/12/17 10:15 11/12/17 11:27 White Blood Count 10.47 K/uL (4.8-10.8) Red Blood Count 4.95 M/uL (4.7-6.1) Hemoglobin 15.4 g/dL (14.0-18.0) Hematocrit 45.3 % (42-52) Mean Corpuscular Volume 91.5 fL (80-100) Mean Corpuscular Hemoglobin 31.1 pg (25-34) Mean Corpuscular Hemoglobin Concent 34.0 g/dl (32-36) Platelet Count 151 K/uL (130-400) Mean Platelet Volume 12.2 fL (7.4-10.4) Neutrophils (%) (Auto) 77.9 % Lymphocytes (%) (Auto) 10.9 % Monocytes (%) (Auto) 10.6 % Eosinophils (%) (Auto) 0.2 % Basophils (%) (Auto) 0.1 % Neutrophils # (Auto) 8.16 K/uL (1.4-6.5) Lymphocytes # (Auto) 1.14 K/uL (1.2-3.4) Monocytes # (Auto) 1.11 K/uL (0.11-0.59) Eosinophils # (Auto) 0.02 K/uL (0-0.5) Basophils # (Auto) 0.01 K/uL (0-0.2) RDW Standard Deviation 46.5 fL (36.4-46.3) RDW Coefficient of Variation 13.9 % (11.5-14.5) Immature Granulocyte % (Auto) 0.3 % Immature Granulocyte # (Auto) 0.03 K/uL (0.00-0.02) Prothrombin Time 11.0 SECONDS (9.0-12.0) Prothromb Time International Ratio 1.0 (0.9-1.1) Activated Partial Thromboplast Time 30.0 SECONDS (21.0-31.0) Partial Thromboplastin Ratio 1.2 Anion Gap 6.0 mmol/L (3-11) Est Creatinine Clear Calc Drug Dose 65.1 ml/min Estimated GFR () 74.3 Estimated GFR (Non- 64.1 BUN/Creatinine Ratio 18.6 (10-20) Calcium Level 8.7 mg/dl (8.5-10.1) Magnesium Level 2.3 mg/dl (1.8-2.4) Total Bilirubin 1.1 mg/dl (0.2-1) Aspartate Amino Transf (AST/SGOT) 19 U/L (15-37) Alanine Aminotransferase (ALT/SGPT) 7 U/L (12-78) Alkaline Phosphatase 86 U/L (45-117) Total Protein 8.0 gm/dl (6.4-8.2) Albumin 3.0 gm/dl (3.4-5.0) Globulin 5.0 gm/dl (2.5-4.0) Albumin/Globulin Ratio 0.6 (0.9-2) Thyroid Stimulating Hormone (TSH) 1.690 uIu/ml (0.300-4.500) Lactic Acid Level 1.8 mmol/L (0.4-2.0) Laboratory results reviewed by me. Medications Administered Medications (Trade) Dose Ordered Sig/Mary Route Start Time Stop Time Status Last Admin Dose Admin Sodium Chloride 1,000 ml @ 999 mls/hr Q1H1M STAT IV 11/12/17 10:57 11/12/17 11:57 DC 11/12/17 11:14 999 MLS/HR Levalbuterol (Xopenex 1.25MG/ 0.5ML Neb) 1.25 mg NOW STAT INH 11/12/17 11:15 11/12/17 11:16 DC 11/12/17 11:36 1.25 MG Ipratropium Oldhams (Atrovent 0.02% 0.5MG/2.5ML Neb) 0.5 mg NOW STAT INH 11/12/17 11:15 8/2/18 11:16 DC 11/12/17 11:36 0.5 MG Ropinirole HCl (Requip Tab) 0.5 mg NOW STAT PO 11/12/17 13:04 11/12/17 13:05 DC 11/12/17 13:22 0.5 MG Heparin Sodium (Porcine) (Heparin Iv Bolus) 6,000 unit NOW STAT IV 11/12/17 13:24 11/12/17 13:25 DC 11/12/17 13:36 6,000 UNIT Heparin Sodium/ Dextrose 500 ml @ 28 mls/hr [id number] IV 11/12/17 13:30 12/12/17 13:29 11/12/17 13:38 28 MLS/HR ECG Per My Interpretation Indication: weakness Rate (beats per minute): 99 Rhythm: normal sinus Findings: other (No ST elevation, old inferior infarct) ED Course 1052: The patient was evaluated in room C3. A complete history and physical exam was performed. 1057: Sodium Chloride 1000 ml @ 999 mls/hr IV 1115: Ipratropium Oldhams 0.5mg INH and Levalbuterol 1.25mg INH 1201: I reevaluated the patient and updated him on his findings. Patient will receive a CT Chest to role out a PE. 1215: Ioversol 100ml IV 1243: I updated the patient on his blood clots. 1301: Upon reexamination the patient will be further evaluated. I discussed results and treatment plan with the patient. He verbalizes agreement and understanding. I spoke with Isaias Mancera PA-C of the [facility]. We discussed the patient's results and findings. The patient will be evaluated by Isaias León for further management. Medical Decision Differential Diagnosis: UTI, pneumonia, bronchitis, dehydration, electrolyte imbalance, anemia, and sepsis. There is no leukocytosis or concerning anemia. No significant electrolyte abnormality, kidney failure or hepatitis. There is no coagulopathy. EKG shows a normal sinus rhythm with an old inferior infarct, no acute ischemia. Cardiac enzyme testing 1 does show a troponin elevation-this is consistent with cardiac injury or strain. Chest film shows some chronic findings, no pneumonia , pneumothorax or CHF. Urinalysis is consistent with infection. Urine culture and blood cultures are pending. Chest CT shows pulmonary emboli with a saddle embolus. Lactic acid level is not elevated making sepsis less likely. The patient appears to be in a euthyroid state. The patient presents with some shortness of breath, weakness. Workup here suggest pulmonary emboli and UTI. He does require a hospital stay. He was aggressively managed here in the ED. The patient was given IV ceftriaxone, a Xopenex Atrovent neb, IV saline. He is being placed on IV heparin by the admitting team. I talked to the patient about his findings, I have spoken with case management. The on-call hospitalist has been consulted. Medication Reconcilliation Current Medication List: was personally reviewed by me Blood Pressure Screening Patient's blood pressure: Normal blood pressure Blood pressure disposition: Did not require urgent referral Consults Time Called: 1158 Consulting Physician: Isaias Mancera PA-C - Covering for [facility] Returned Call: [phone] Discussed the patient's case. The patient will be evaluated for further management. Impression Primary Impression: Pulmonary emboli Additional Impressions: Hypoxia Weakness SOB (shortness of breath) Falling Elevated troponin UTI (urinary tract infection) Critical Care I have personally spent greater than 35 minutes of critical care time in the direct management of this patient. This includes bedside care, interpretation of diagnostic studies, and testing, discussion with consultants, patient, and family members, and other required patient management activities. This 35 minutes is in excess of all separately billable procedures. Scribe Attestation The scribe's documentation has been prepared under my direction and personally reviewed by me in its entirety. I confirm that the note above accurately reflects all work, treatment, procedures, and medical decision making performed by me. Departure Information Dispostion Being Evaluated By Hospitalist Referrals Fili Early M.D. (PCP) Forms HOME CARE DOCUMENTATION FORM, IMPORTANT VISIT INFORMATION Patient Instructions [facility] Problem Qualifiers
[2017-11-12 11:20] LABS: BASO % 0.1 %; BASO ABS # 0.01 K/uL (0-0.2); EOS % 0.2 %; EOS ABS # 0.02 K/uL (0-0.5); HEMATOCRIT 45.3 % (42-52); HEMOGLOBIN 15.4 g/dL (14.0-18.0); IG# 0.03 K/uL (0.00-0.02); LYMPH % 10.9 %; LYMPH ABS # 1.14 K/uL (1.2-3.4); MEAN CELL VOLUME 91.5 fL (80-100); MEAN CORPUSCULAR HEMOGLOBIN 31.1 pg (25-34); MEAN PLATELET VOLUME 12.2 fL (7.4-10.4); MONO % 10.6 %; MONO ABS # 1.11 K/uL (0.11-0.59); NEUT % 77.9 %; NEUT ABS # 8.16 K/uL (1.4-6.5); PLATELET COUNT 151 K/uL (130-400); RED CELL DISTRIBUTION WIDTH CV 13.9 % (11.5-14.5); RED CELL DISTRIBUTION WIDTH SD 46.5 fL (36.4-46.3); WHITE BLOOD COUNT 10.47 K/uL (4.8-10.8)
[2017-11-12 11:36] VITALS: PULSE 100; O2SAT 93
[2017-11-12] MEDS ORDERED: OPTIRAY 320 IV PRN (12:15)
--- NOTE | 2017-11-12 12:42 | DIAGNOSTIC IMAGING REPORT ---
(CHEST FOR PE) ANGIO WITH CT DOSE: 605.10 mGy.cm HISTORY: Chest pain dyspnea TECHNIQUE: Multiaxial CT images of the chest were performed following the intravenous administration of contrast to evaluate the pulmonary arteries. Maximal intensity projection images were also obtained. A dose lowering technique was utilized adhering to the principles of ALARA. COMPARISON STUDY: None. FINDINGS: Bulky bilateral pulmonary emboli. There is a saddle embolus. Mild bibasilar atelectatic and/or infiltrative change. Mild emphysematous change. IMPRESSION: 1. Bulky bilateral acute pulmonary emboli. 2. Sagittal embolus. 3. Nonspecific interstitial change both hemithoraces. 4. This report was phoned to the emergency room The above report was generated using voice recognition software. It may contain grammatical, syntax or spelling errors. Electronically signed by: Nicholas Johnson M.D. 11/12/2017 12:41 PM Dictated Date/Time: 11/12/2017 12:38 PM
[2017-11-12] MEDS ORDERED: ROPINIROLE HCL 0.25 MG TAB PO STA (13:04)
[2017-11-12] MEDS ORDERED: HEPARIN SOD (PORCINE) 1000 UNIT/ML 10 ML VIAL IV STA (13:24)
[2017-11-12] MEDS: HEPARIN 25,000 UNIT/500ML D5W 500 ML IV SCH (13:38)
[2017-11-12] MEDS ORDERED: ACETAMINOPHEN 325 MG TAB PO PRN (14:00)
[2017-11-12] MEDS ORDERED: ALUMINUM/MAGNESIUM/SIMETH (MAALOX MAX) 30 ML UDC PO PRN (14:00)
[2017-11-12] MEDS ORDERED: MAGNESIUM HYDROXIDE SUSP 30 ML UDC PO PRN (14:00)
[2017-11-12] MEDS ORDERED: POLYETHYLENE (MIRALAX) 17 GM PACK PO PRN (14:00)
[2017-11-12] MEDS ORDERED: ONDANSETRON INJ 2 MG/ML 2 ML VIAL IV PRN (14:00)
[2017-11-12] MEDS ORDERED: CEFTRIAXONE SOD INJ 1 GM ADDVIAL IV STA (14:48)
--- NOTE | 2017-11-12 15:29 | History and Physical ---
History & Physical Date & Time of Service: Nov 12, 2017 at 14:52 Chief Complaint: Shortness Of Breath Primary Care Physician: Fili Early M.D. History of Present Illness Source: patient, family Attending: Dr. Spear This is a 72-year-old male that presents with shortness of breath and history of fall 2 over the last 24 hours. Patient indicates that he was using a walker but lost his balance. There were mechanical falls. He denies any syncope or presyncope. Patient does have a history of progressive Parkinson's disease and has noticed increased difficulty with ambulation and with swallowing. Speech is slurred which is usual for him. is present and affirms his history. The patient has been afebrile and has no episodes of vomiting or diarrhea. He was found to be 88% on room air and was placed on nasal cannula 2 L which brought him quickly into the low 90s. Laboratory evaluation revealed a troponin bump of 0.83. Due to his Parkinson's and limited activity, he was sent for CTA to rule out pulmonary emboli. Patient was found to have a large saddle emboli of the pulmonary artery as well as bilateral bulky pulmonary emboli with no evidence of pulmonary necrosis. Patient denies any pleuritic chest pain or hemoptysis. He is unaware of any tachyarrhythmias or tachycardia. His shortness of breath is described as difficulty catching his breath. Patient has no extension of pain in the jaw shoulder or arm. He denies any back pain or flank pain. He has no abdominal pain. Patient does have lower extremity edema which is chronic from lymphedema. He has not noticed any asymmetrical lower extremity edema. He does complain about some focal pain around his right knee but no pain to gastrocnemius muscles bilaterally or to quadriceps. Patient does have progressive Parkinson's and is managed at home by his . He also has home health for a couple of hours each morning. 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 The patient has no significant past tobacco abuse history. He denies ethanol abuse history. He has no other acute acute complaints at this time. Past Medical/Surgical History Medical Problems: Bilateral pulmonary embolism/Saddle embolus -no prior history of thromboembolic disease Abdomen enlarged Adynamic ileus Anemia DJD (degenerative joint disease) of hip Fall at home Hx Leukocytosis Hx Nondisplaced fracture of greater trochanter of right femur Jeff's syndrome Parkinson disease Right knee DJD HxScalp laceration Sigmoid volvulus Hx UTI (urinary tract infection) Surgical Problems: (1) Odette-prosthetic fracture of femur following total hip arthroplasty (2) S/P appendectomy (3) S/P hip replacement (4) S/P ORIF (open reduction internal fixation) fracture Family History FH: heart disease Social History Smoking Status: Never Smoker Drug Use: none Marital Status: Housing status: lives with significant other (Lives with Reza Wooten) Occupational Status: retired (Professor and researcher at [employer] ) Immunizations History of Influenza Vaccine: Yes Influenza Vaccine Date: Jan 20, 2013 History of Tetanus Vaccine?: utd Tetanus Immunization Date: Nov 04, 2008 History of Pneumococcal: No Pneumococcal Date: Nov 07, 2012 History of Hepatitis B Vaccine: No Allergies Coded Allergies: Poison Nguyen Extract/Poison [place] Extra (Verified Allergy, Severe, rash, itchy , 11/12/17) Does not need to have physical contact to have reaction. Hydromorphone (Verified Allergy, Unknown, hives on trunk, 11/12/17) POLLEN (Verified Allergy, Unknown, SNEEZING,RUNNY NOSE, 11/12/17) G.Domesticus Dust Mite (Verified Adverse Reaction, Intermediate, Sneeze, cough, 11/12/17) Home Medications Scheduled Ascorbic Acid (Vitamin C), 1,000 MG PO QAM Benztropine Mesylate (Benztropine Mesylate), 0.5 MG PO QAM Carbidopa/Levodopa (Sinemet Cr 50MG/200MG), 1 TAB PO midnight Carbidopa/Levodopa (Sinemet 25MG/100MG), 1.5 TAB PO 5XD Cholecalciferol (Vitamin D3), 2,000 UNITS PO QAM Cyanocobalamin (Vitamin B12 500MCG), 1,000 MCG PO QAM Dutasteride (Avodart), 0.5 MG PO NOON Probiotic Product (Probiotic), 1 TAB PO QAM Ropinirole (Requip), 0.5 MG PO UD Tamsulosin Hcl (Flomax), 0.4 MG PO HS Vitamin E (E-400), 400 UNITS PO QAM Scheduled PRN Loperamide Hcl (Imodium), 2 MG PO DAILY PRN for Diarrhea Review of Systems Constitutional: No fever, No chills, No sweats ENT: No unusual epistaxis, No trouble swallowing (But does notice occasional coughing with food) Respiratory: + cough (Chronic secondary to laryngeal dysfunction from Parkinson 's), + shortness of breath, No sputum, No wheezing, No hemoptysis Cardiovascular: + edema (Chronic lymphedema. No asymmetrical edema of lower extremities), No chest pain, No palpitations (No awareness of tachyarrhythmia's) Abdomen: No pain, No nausea, No vomiting Genitourinary - Male: No hematuria Neurologic: + weakness (Secondary to Parkinson's disease), + balance problems ( Secondary to Parkinson's disease) Endocrine: No excessive thirst, No excessive urination Integumentary: No rash, No itch Physical Exam Vital Signs Date Time Temp Pulse Resp B/P (MAP) Pulse Ox O2 Delivery O2 Flow Rate FiO2 11/12/17 13:30 96 30 112/67 93 Nasal Cannula 2.0 11/12/17 13:25 92 11/12/17 12:00 103 22 107/75 93 Nasal Cannula 2.0 11/12/17 11:36 100 22 93 Nasal Cannula 2.0 11/12/17 10:29 94 Nasal Cannula 2.0 11/12/17 10:29 Nasal Cannula 2.0 11/12/17 10:17 37.1 101 20 94/61 90 Room Air 11/12/17 09:55 108 GENERAL : No acute distress. Pleasant EYES: No icterus, gaze conjugate. Pupils equal and reactive to light NOSE: No evidence of epistaxis. Nasal cannula in place MOUTH: No lesions or candidiasis. Halitosis. Tongue midline NECK: Supple LUNGS: CTA B/L, no rales or rhonchi. No evidence of bronchospasm. Breath sounds equal bilaterally at the posterior bases HEART: Regular, rate in the 90s ABDOMEN: Soft, NT, ND, BS Present EXTREMITIES: Bilateral LE edema, pedal pulses intact bilaterally. No calf tenderness. No Homans sign NEURO: [facility] Laboratory Results Results Past 24 Hours Test 11/12/17 10:15 11/12/17 11:27 11/12/17 14:45 Range/Units White Blood Count 10.47 4.8-10.8 K/uL Red Blood Count 4.95 4.7-6.1 M/uL Hemoglobin 15.4 14.0-18.0 g/dL Hematocrit 45.3 42-52 % Mean Corpuscular Volume 91.5 80-100 fL Mean Corpuscular Hemoglobin 31.1 25-34 pg Mean Corpuscular Hemoglobin Concent 34.0 32-36 g/dl Platelet Count 151 130-400 K/uL Mean Platelet Volume 12.2 7.4-10.4 fL Neutrophils (%) (Auto) 77.9 % Lymphocytes (%) (Auto) 10.9 % Monocytes (%) (Auto) 10.6 % Eosinophils (%) (Auto) 0.2 % Basophils (%) (Auto) 0.1 % Neutrophils # (Auto) 8.16 1.4-6.5 K/uL Lymphocytes # (Auto) 1.14 1.2-3.4 K/uL Monocytes # (Auto) 1.11 0.11-0.59 K/uL Eosinophils # (Auto) 0.02 0-0.5 K/uL Basophils # (Auto) 0.01 0-0.2 K/uL RDW Standard Deviation 46.5 36.4-46.3 fL RDW Coefficient of Variation 13.9 11.5-14.5 % Immature Granulocyte % (Auto) 0.3 % Immature Granulocyte # (Auto) 0.03 0.00-0.02 K/uL Prothrombin Time 11.0 9.0-12.0 SECONDS Prothromb Time International Ratio 1.0 0.9-1.1 Activated Partial Thromboplast Time 30.0 21.0-31.0 SECONDS Partial Thromboplastin Ratio 1.2 Sodium Level 136 136-145 mmol/L Potassium Level 4.4 3.5-5.1 mmol/L Chloride Level 104 98-107 mmol/L Carbon Dioxide Level 26 21-32 mmol/L Anion Gap 6.0 3-11 mmol/L Blood Urea Nitrogen 21 7-18 mg/dl Creatinine 1.13 0.60-1.40 mg/dl Est Creatinine Clear Calc Drug Dose 65.1 ml/min Estimated GFR () 74.3 Estimated GFR (Non- 64.1 BUN/Creatinine Ratio 18.6 10-20 Random Glucose 124 70-99 mg/dl Calcium Level 8.7 8.5-10.1 mg/dl Magnesium Level 2.3 1.8-2.4 mg/dl Total Bilirubin 1.1 0.2-1 mg/dl Aspartate Amino Transf (AST/SGOT) 19 15-37 U/L Alanine Aminotransferase (ALT/SGPT) 7 12-78 U/L Alkaline Phosphatase 86 45-117 U/L Troponin I 0.834 0-0.045 ng/ml Total Protein 8.0 6.4-8.2 gm/dl Albumin 3.0 3.4-5.0 gm/dl Globulin 5.0 2.5-4.0 gm/dl Albumin/Globulin Ratio 0.6 0.9-2 Thyroid Stimulating Hormone (TSH) 1.690 0.300-4.500 uIu/ml Lactic Acid Level 1.8 0.4-2.0 mmol/L Microbiology Results 11/12/17 Blood Culture, Received Pending 11/12/17 Blood Culture, Received Pending Diagnostic Radiology (CHEST FOR PE) ANGIO WITH CT DOSE: 605.10 mGy.cm HISTORY: Chest pain dyspnea TECHNIQUE: Multiaxial CT images of the chest were performed following the intravenous administration of contrast to evaluate the pulmonary arteries. Maximal intensity projection images were also obtained. A dose lowering technique was utilized adhering to the principles of ALARA. COMPARISON STUDY: None. FINDINGS: Bulky bilateral pulmonary emboli. There is a saddle embolus. Mild bibasilar atelectatic and/or infiltrative change. Mild emphysematous change. IMPRESSION: 1. Bulky bilateral acute pulmonary emboli. 2. Sagittal embolus. 3. Nonspecific interstitial change both hemithoraces. 4. This report was phoned to the emergency room Electronically signed by: Nicholas Johnson M.D. 11/12/2017 12:41 PM EKG EKG 05/15/2017 Vent. rate 99 BPM MT interval 184 ms QRS duration 90 ms QT/QTc 352/451 ms P-R-T axes 67 -35 34 Normal sinus rhythm Left axis deviation Inferior infarct , age undetermined Abnormal ECG When compared with ECG of 12-SEP-2015 15:27, Inferior infarct is now Present Impression Assessment and Plan Is a 72-year-old male with progressive Parkinson's disease that presents with shortness of breath. He had 2 falls yesterday with no injury. He was found to have an elevated troponin of 0.83 with EKG findings suggested of right heart strain with S1Q3T3 pattern. CTA of the chest revealed a saddle embolus of the pulmonary artery as well as bulky bilateral pulmonary emboli. Patient is oxygenating well with 2 L. He has no hemoptysis. Patient meets criteria for admission for heparin drip with bolus and further management of acute pulmonary emboli with saddle embolus noted. Acute saddle emboli/bilateral pulmonary emboli * A weight-based heparin drip was initiated with bolus in the emergency department * Patient will be admitted to the telemetry unit for anticoagulation and monitoring due to EKG with S1Q3T3 pattern and bump in troponin * Check serial troponins * Check a complete echocardiogram with bubble study * Check lower extremity duplex to rule out lower extremity DVT * Systemic TPA administration versus catheter directed TPA versus mechanical thrombectomy was discussed with patient and his * Patient was clear that he does not want to be transferred to another facility. He also does not want to take the risk of TPA administration with possibility of cerebral hemorrhage due to his already deteriorated condition secondary to Parkinson's * No indication for pulmonary consult at this time as patient is oxygenating relatively well and has no hemoptysis or pleuritic chest pain Elevated troponin * Bump in troponin most likely secondary to saddle embolus and bilateral pulmonary emboli * Will follow serial troponins * We will also get repeat EKG in the morning and with chest pain. * Patient denies any chest pain. * Follow on telemetry Parkinson's disease * Complete bedrest for now pending lower extremity duplex scan * If duplex is negative patient can increase activity and will need PT/OT evaluation * Continue home doses of carbidopa/levodopa (Sinemet) as well as Cogentin * No indication for neurology consult at this time GI * Will hold home dose of Imodium at this time * Continue with probiotic * No indication for PPI or H2 mary kate Dyspnea with Hypoxia * Most likely secondary to pulmonary emboli and saddle embolus * Continue to monitor on telemetry with vital signs per protocol * No history of tobacco abuse * No hemoptysis * No purulent sputum or change in cough * Afebrile * No significant leukocytosis ID * History of UTI * Urinalysis is pending * No indication for antibiotics at this time DVT prophylaxis * Patient started on weight-based heparin drip for pulmonary emboli and saddle embolus * No SCDs or teds pending lower extremity duplex * Duplex ordered to rule out DVT * Bedrest until DVT ruled out Please refer to Dr. Spear's addendum for further recommendations. Resuscitation Status Level V: DNR/DNI per discussion with patient and affirmed by patient's Reza Wooten VTE Prophylaxis Will order VTE Prophylaxis: Yes Reason no Mechanical VTE Order: Contraindicated Social Service Consult Receiving Home Health Note Supervising Note Dr. Spear I performed a history and physical examination on the patient. I reviewed above note and agree with it. I discussed plan with APC and patient. During my face to face encounter with the patient, I answered all of the patient's questions. D/W patient findings of pulmonary emboli. Patient will currently be on heparin iv for now. Will closely monitor patient's vitals and clinical status
[2017-11-12 15:49] VITALS: BP 104/70; PULSE 84; TEMP 36.4; O2SAT 93
[2017-11-12 16:04] VITALS: BP 104/70; PULSE 84; TEMP 36.4; Ht 175.3 cm; Wt 91.6 kg
[2017-11-12] MEDS: CARBIDOPA/LEVODOPA 25/100MG TAB PO SCH ×2 (17:08→20:53)
[2017-11-12 19:24] VITALS: BP 118/80; PULSE 86; TEMP 36.5; O2SAT 95
[2017-11-12 20:00] VITALS: O2SAT 93
[2017-11-12 20:40] LABS: PTT PATIENT 68.9 SECONDS (21.0-31.0)
[2017-11-12] MEDS: TAMSULOSIN HCL 0.4 MG CAP PO SCH (20:53)
[2017-11-12] MEDS: ROPINIROLE HCL 1 MG TAB PO SCH (20:54)
[2017-11-12 23:09] VITALS: BP 109/70; PULSE 84; TEMP 36.4; O2SAT 92
[2017-11-13] VITALS (7 sets, daily range): BP systolic 97–124; BP diastolic 66–78; PULSE 68–84; TEMP 36.4–37.1; O2SAT 91–95
[2017-11-13] MEDS: CARBIDOPA/LEVODOPA 50/200MG EXT REL TAB PO SCH ×2 (00:51→23:13)
[2017-11-13] MEDS: ROPINIROLE HCL 1 MG TAB PO SCH ×3 (00:51→23:13)
[2017-11-13 04:11] LABS: BASO % 0.2 %; BASO ABS # 0.02 K/uL (0-0.2); EOS % 1.1 %; EOS ABS # 0.09 K/uL (0-0.5); HEMATOCRIT 39.5 % (42-52); HEMOGLOBIN 13.4 g/dL (14.0-18.0); IG# 0.03 K/uL (0.00-0.02); LYMPH % 22.1 %; LYMPH ABS # 1.83 K/uL (1.2-3.4); MEAN CELL VOLUME 91.6 fL (80-100); MEAN CORPUSCULAR HEMOGLOBIN 31.1 pg (25-34); MEAN CORPUSCULAR HGB CONC 33.9 g/dl (32-36); MEAN PLATELET VOLUME 11.7 fL (7.4-10.4); MONO % 15.2 %; MONO ABS # 1.26 K/uL (0.11-0.59); NEUT ABS # 5.06 K/uL (1.4-6.5); PLATELET COUNT 130 K/uL (130-400); RED CELL DISTRIBUTION WIDTH CV 13.8 % (11.5-14.5); RED CELL DISTRIBUTION WIDTH SD 46.1 fL (36.4-46.3); WHITE BLOOD COUNT 8.29 K/uL (4.8-10.8)
[2017-11-13 04:30] LABS: PTT PATIENT 59.5 SECONDS (21.0-31.0)
[2017-11-13 04:31] LABS: CALCIUM 7.9 mg/dl (8.5-10.1); CREATININE 0.84 mg/dl (0.60-1.40); POTASSIUM 4.1 mmol/L (3.5-5.1)
--- NOTE | 2017-11-13 06:47 | DIAGNOSTIC IMAGING REPORT ---
ULTRASOUND VENOUS DOPPLER LWR EXT BILA CLINICAL HISTORY: Bilateral pulmonary embolus COMPARISON STUDY: 08/23/2014 FINDINGS: On the right, no intraluminal thrombus was visualized. The veins are fully compressible from the groin to the popliteal vein. There was normal color-flow within the proximal trifurcation veins. On the left, no thrombus is visualized in the common femoral or superficial femoral veins. There was thrombus within the proximal popliteal vein, as well as thrombus within either a duplicated distal popliteal vein or tibioperoneal trunk. IMPRESSION: Acute left lower extremity DVT. Electronically signed by: Gregorio Henriquez M.D. 11/13/2017 6:46 AM Dictated Date/Time: 11/13/2017 6:43 AM
[2017-11-13] MEDS: HEPARIN 25,000 UNIT/500ML D5W 500 ML IV SCH ×2 (06:56→23:00)
[2017-11-13] MEDS ORDERED: PERFLUTREN LIPID MICROSPHERE (DEFINITY) IV ONE (07:59)
--- NOTE | 2017-11-13 08:45 | Clinical Documentation Query ---
CLINICAL DOCUMENTATION QUERY Dr. VICTORIA, In your clinical opinion is this patient being managed for: ( x ) Acute LLE DVT likely causing pulmonary embolism ( ) Not Agree ( ) Other explanation of clinical findings (No explanation is considered a No Response) ( ) Unable to determine ( ) Need to Discuss (Phone CDS or qliq) (No discussion is considered a No Response) The medical record reflects the following clinical findings, treatment, and risk factors. Clinical Indicators: 72 yo male presenting with dyspnea and several falls. LE venous doppler showed acute left lower extremity DVT. Treatment: IV heparin bolus then gtt, tele monitoring, O2 support, ECHO Risk Factors: age, progressive Parkinson's disease Please clarify and document your clinical opinion in the progress notes and discharge summary. Terms such as "probable", "suspected", "likely", "questionable", "possible", or "still to be ruled out" are acceptable. IF IN AGREEMENT, YOU MUST DOCUMENT ABOVE DIAGNOSTIC STATEMENT IN DAILY PROGRESS NOTES AND DISCHARGE SUMMARY. This document is not part of the patient's record. Thank You, Ellyn Payan, LISA [phone]
[2017-11-13] MEDS ORDERED: NON-FORMULARY MEDICATION (Probiotic Product (Probiotic) 1 TAB) PO SCH (09:00)
[2017-11-13] MEDS: CARBIDOPA/LEVODOPA 25/100MG TAB PO SCH ×5 (09:17→20:29)
[2017-11-13] MEDS: CYANOCOBALAMIN 500 MCG TAB (VIT B-12) PO SCH (09:18)
[2017-11-13] MEDS: ASCORBIC ACID 500 MG TAB PO SCH (09:18)
[2017-11-13] MEDS: BENZTROPINE MESYLATE 0.5 MG TAB PO SCH (09:18)
[2017-11-13] MEDS: TOCOPHERYL, DL-ALPHA 400 INTER.UNIT CAP PO SCH (09:19)
[2017-11-13] MEDS: CHOLECALCIFEROL 1000 INTER.UNIT TAB PO SCH (09:19)
--- NOTE | 2017-11-13 09:50 | Progress Note ---
Subjective Date of Service: Nov 13, 2017. Subjective Pt evaluation today including: conversation w/ patient, physical exam 72 yo male reports doing well. He has no new complaints. He reports that his main issue is his parkinson's. He reports a sedentary lifestyle and before being diagnosed he was very active and would exercise. Patient reports that he continues to require oxygen. Patient denies any SOB, nausea, vomiting. Problem List Medical Problems: (1) Anemia Status: Chronic (2) Elevated troponin Status: Acute (3) Fall Status: Acute (4) Fall at home Status: Acute (5) Falling Status: Acute (6) Hypoxia Status: Acute (7) Nondisplaced fracture of greater trochanter of right femur Status: Acute (8) Blue Bell's syndrome Status: Chronic (9) Parkinson disease Status: Chronic (10) Parkinsons disease Status: Chronic (11) Pulmonary emboli Status: Acute (12) Scalp laceration Status: Acute (13) SOB (shortness of breath) Status: Acute (14) Weakness Status: Acute Review of Systems Constitutional: No fever, No chills Eyes: No eye pain ENT: No hearing loss Respiratory: + shortness of breath, No cough Cardiac: No chest pain Abdomen: No pain Musculoskeletal: No joint pain Neurologic: + weakness Psychiatric: No depression symptoms Heme: No abnormal bleeding/bruising Endo: + fatigue Skin: No rash Objective Vital Signs Date Time Temp Pulse Resp B/P (MAP) Pulse Ox O2 Delivery O2 Flow Rate FiO2 11/13/17 07:42 36.4 79 18 107/71 (83) 91 Nasal Cannula 2.0 11/13/17 04:02 36.4 76 18 97/66 (76) 92 Nasal Cannula 2.0 11/13/17 00:01 Nasal Cannula 2.0 11/12/17 23:09 36.4 84 18 109/70 (83) 92 Nasal Cannula 2.0 11/12/17 20:00 93 Nasal Cannula 2.0 11/12/17 19:24 36.5 86 18 118/80 (93) 95 Nasal Cannula 2.0 11/12/17 16:04 36.4 84 18 104/70 Nasal Cannula 2.0 11/12/17 15:49 36.4 84 18 104/70 (81) 93 Nasal Cannula 2.0 11/12/17 15:12 91 18 112/71 94 11/12/17 13:30 96 30 112/67 93 Nasal Cannula 2.0 11/12/17 13:25 92 11/12/17 12:00 103 22 107/75 93 Nasal Cannula 2.0 11/12/17 11:36 100 22 93 Nasal Cannula 2.0 11/12/17 10:29 94 Nasal Cannula 2.0 11/12/17 10:29 Nasal Cannula 2.0 11/12/17 10:17 37.1 101 20 94/61 90 Room Air 11/12/17 09:55 108 Physical Exam General Appearance: WD/WN, no apparent distress Eyes: PERRL ENT: normal ENT inspection Neck: supple, no adenopathy Respiratory/Chest: lungs clear, normal breath sounds Cardiovascular: regular rate, rhythm, no edema Abdomen: normal bowel sounds, non tender, soft Extremities: normal inspection Neurologic/Psychiatric: alert, oriented x 3 Skin: normal color Lymphatic: no adenopathy Laboratory Results Last 24 Hours Test 11/12/17 10:15 11/12/17 11:27 11/12/17 14:45 11/12/17 16:27 White Blood Count 10.47 K/uL Red Blood Count 4.95 M/uL Hemoglobin 15.4 g/dL Hematocrit 45.3 % Mean Corpuscular Volume 91.5 fL Mean Corpuscular Hemoglobin 31.1 pg Mean Corpuscular Hemoglobin Concent 34.0 g/dl Platelet Count 151 K/uL Mean Platelet Volume 12.2 fL Neutrophils (%) (Auto) 77.9 % Lymphocytes (%) (Auto) 10.9 % Monocytes (%) (Auto) 10.6 % Eosinophils (%) (Auto) 0.2 % Basophils (%) (Auto) 0.1 % Neutrophils # (Auto) 8.16 K/uL Lymphocytes # (Auto) 1.14 K/uL Monocytes # (Auto) 1.11 K/uL Eosinophils # (Auto) 0.02 K/uL Basophils # (Auto) 0.01 K/uL RDW Standard Deviation 46.5 fL RDW Coefficient of Variation 13.9 % Immature Granulocyte % (Auto) 0.3 % Immature Granulocyte # (Auto) 0.03 K/uL Prothrombin Time 11.0 SECONDS Prothromb Time International Ratio 1.0 Activated Partial Thromboplast Time 30.0 SECONDS Partial Thromboplastin Ratio 1.2 Sodium Level 136 mmol/L Potassium Level 4.4 mmol/L Chloride Level 104 mmol/L Carbon Dioxide Level 26 mmol/L Anion Gap 6.0 mmol/L Blood Urea Nitrogen 21 mg/dl Creatinine 1.13 mg/dl Est Creatinine Clear Calc Drug Dose 65.1 ml/min Estimated GFR () 74.3 Estimated GFR (Non- 64.1 BUN/Creatinine Ratio 18.6 Random Glucose 124 mg/dl Calcium Level 8.7 mg/dl Magnesium Level 2.3 mg/dl Total Bilirubin 1.1 mg/dl Aspartate Amino Transf (AST/SGOT) 19 U/L Alanine Aminotransferase (ALT/SGPT) 7 U/L Alkaline Phosphatase 86 U/L Troponin I 0.834 ng/ml 0.737 ng/ml Total Protein 8.0 gm/dl Albumin 3.0 gm/dl Globulin 5.0 gm/dl Albumin/Globulin Ratio 0.6 Thyroid Stimulating Hormone (TSH) 1.690 uIu/ml Lactic Acid Level 1.8 mmol/L Urine Color DK YELLOW Urine Appearance TURBID Urine pH 5.0 Urine Specific [place] > 1.045 Urine Protein 2+ Urine Glucose (UA) NEG Urine Ketones TRACE Urine Occult Blood 2+ Urine Nitrite POS Urine Bilirubin NEG Urine Urobilinogen NEG Urine Leukocyte Esterase LARGE Urine WBC (Auto) >30 /hpf Urine RBC (Auto) >30 /hpf Urine Hyaline Casts (Auto) 0 /lpf Urine Epithelial Cells (Auto) 0-5 /lpf Urine Bacteria (Auto) 2+ Urine Pathogenic Casts /lpf Urine Yeast (Auto) Test 11/12/17 19:33 11/13/17 00:22 11/13/17 03:59 Activated Partial Thromboplast Time 68.9 SECONDS 59.5 SECONDS Partial Thromboplastin Ratio 2.7 2.3 Troponin I 0.396 ng/ml White Blood Count 8.29 K/uL Red Blood Count 4.31 M/uL Hemoglobin 13.4 g/dL Hematocrit 39.5 % Mean Corpuscular Volume 91.6 fL Mean Corpuscular Hemoglobin 31.1 pg Mean Corpuscular Hemoglobin Concent 33.9 g/dl Platelet Count 130 K/uL Mean Platelet Volume 11.7 fL Neutrophils (%) (Auto) 61.0 % Lymphocytes (%) (Auto) 22.1 % Monocytes (%) (Auto) 15.2 % Eosinophils (%) (Auto) 1.1 % Basophils (%) (Auto) 0.2 % Neutrophils # (Auto) 5.06 K/uL Lymphocytes # (Auto) 1.83 K/uL Monocytes # (Auto) 1.26 K/uL Eosinophils # (Auto) 0.09 K/uL Basophils # (Auto) 0.02 K/uL RDW Standard Deviation 46.1 fL RDW Coefficient of Variation 13.8 % Immature Granulocyte % (Auto) 0.4 % Immature Granulocyte # (Auto) 0.03 K/uL Sodium Level 136 mmol/L Potassium Level 4.1 mmol/L Chloride Level 105 mmol/L Carbon Dioxide Level 26 mmol/L Anion Gap 5.0 mmol/L Blood Urea Nitrogen 17 mg/dl Creatinine 0.84 mg/dl Est Creatinine Clear Calc Drug Dose 87.6 ml/min Estimated GFR () 100.7 Estimated GFR (Non- 86.9 BUN/Creatinine Ratio 19.8 Random Glucose 100 mg/dl Calcium Level 7.9 mg/dl Assessment and Plan 72-year-old male with progressive Parkinson's disease that presents with shortness of breath. He had 2 falls yesterday with no injury. He was found to have an elevated troponin of 0.83 with EKG findings suggested of right heart strain with S1Q3T3 pattern. CTA of the chest revealed a saddle embolus of the pulmonary artery as well as bulky bilateral pulmonary emboli. Patient is oxygenating well with 2 L. He has no hemoptysis. Patient meets criteria for admission for heparin drip with bolus and further management of acute pulmonary emboli with saddle embolus noted. Acute LLE DVT likely causing pulmonary embolism Acute saddle emboli/bilateral pulmonary emboli * A weight-based heparin drip was initiated with bolus in the emergency department * Patient will be admitted to the telemetry unit for anticoagulation and monitoring due to EKG with S1Q3T3 pattern and bump in troponin * Check serial troponins: peaked at .8 and has been trending down. * Check a complete echocardiogram with bubble study * The right ventricular systolic function is moderately reduced. * Right ventricular systolic pressure is elevated at 40-50mmHg. * The inferior vena cava is moderately dilated. * The right ventricle is moderately dilated. * Acute LLE DVT was shown. Patient will likely benefit from SVC filter. Will consult vascular surgery on Thursday. * Systemic TPA administration versus catheter directed TPA versus mechanical thrombectomy was discussed with patient and his * Patient was clear that he does not want to be transferred to another facility. He also does not want to take the risk of TPA administration with possibility of cerebral hemorrhage due to his already deteriorated condition secondary to Parkinson's * No indication for pulmonary consult at this time as patient is oxygenating relatively well and has no hemoptysis or pleuritic chest pain Elevated troponin * Bump in troponin most likely secondary to saddle embolus and bilateral pulmonary emboli * trending down * Patient denies any chest pain. * Follow on telemetry Parkinson's disease * Complete bedrest for now pending lower extremity duplex scan * If duplex is negative patient can increase activity and will need PT/OT evaluation * Continue home doses of carbidopa/levodopa (Sinemet) as well as Cogentin * No indication for neurology consult at this time Right heart failure: Shown by echocardiogram. will monitor I's and O's GI * Continue with probiotic * No indication for PPI or H2 mary kate Dyspnea with Hypoxia Patient is no longer symptomatic. bUT CONTINEUS TO REQUIRE OXYGEN. * Most likely secondary to pulmonary emboli and saddle embolus * Continue to monitor on telemetry with vital signs per protocol * No history of tobacco abuse * No hemoptysis * No purulent sputum or change in cough * Afebrile * No significant leukocytosis ID * History of UTI * Urinalysis is pending * No indication for antibiotics at this time DVT prophylaxis * Patient started on weight-based heparin drip for pulmonary emboli and saddle embolus * No SCDs or teds pending lower extremity duplex * Duplex ordered to rule out DVT * Bedrest until DVT ruled out
--- NOTE | 2017-11-13 18:12 | ECHOCARDIOGRAM REPORT ---
*NOTICE TO RECEIVING REPUBLICAN AGENCY This information is strictly Confidential and protected under [place] law. [place] law prohibits you from making any further disclosure of this information unless further disclosure is expressly permitted by the written consent of the person to whom it pertains or is authorized by law. A general authorization for the release of medical or other information is not sufficient for this purpose. Hospital accepts no responsibility if the information is made available to any other person, INCLUDING THE PATIENT. Interpretation Summary * Name: YANETH GUAJARDO Study Date: 11/13/2017 07:25 AM BP: 97/66 mmHg * Patient Location: [facility]\S\[id number]\S\1 HR: 76 * : 1945 (M/d/yyyy) Gender: Male Height: 69 in * Age: 72 yrs Ethnicity: [place] Weight: 201 lb * Ordering Physician: Isaias Mancera * Referring Physician: Self, Referred * Performed By: Mary Guerrier RDCS * * Reason For Study: Saddle Emboli, B/L Pulmonary Embolism * BSA: 2.1 m2 * -- Conclusions -- * Left ventricular systolic function is normal. * Grade I diastolic dysfunction, (abnormal relaxation pattern). * The right ventricular systolic function is moderately reduced. * Right ventricular systolic pressure is elevated at 40-50mmHg. * The inferior vena cava is moderately dilated. * The right ventricle is moderately dilated. Procedure Details * A complete two-dimensional transthoracic echocardiogram was performed (2D, M-mode, Doppler and color flow Doppler). * The study was technically difficult. * There were technical limitations due to patient'spoor positioning * A contrast injection of Definity was performed to improve assessment of LV function. * Contrast was injected into an intravenous site in the right arm. * One vial of Definity ultrasound contrast was diluted in normal saline to a total volume of 10 ml. A total of '1.5' ml of solution was administered during imaging. * Lot # [id number] of Definity utilized for procedure. * Expiration date . * The attending nurse who injected the contrast agent was Tammy Platt RN. Left Ventricle * The left ventricle is normal in size. * There is normal left ventricular wall thickness. * Ejection Fraction = 50-55%. * Left ventricular systolic function is normal. * Grade I diastolic dysfunction, (abnormal relaxation pattern). * The septum appears mildly hypokinetic otherwise normal wall motion Right Ventricle * The right ventricle is moderately dilated. * The right ventricular systolic function is moderately reduced. Atria * The left atrial size is normal. * Right atrial size is normal. Mitral Valve * The mitral valve is grossly normal. * Significant mitral regurgitation is absent. Tricuspid Valve * The tricuspid valve is not well visualized, but is grossly normal. * There is trace tricuspid regurgitation. * Right ventricular systolic pressure is elevated at 40-50mmHg. Aortic Valve * The aortic valve is normal in structure and function. * No hemodynamically significant valvular aortic stenosis. * There is no significant aortic regurgitation. Pulmonic Valve * The pulmonic valve is not well visualized. Great Vessels * The aortic root is normal size. Pericardium/Pleural * There is no pericardial effusion. Great Vessels * The inferior vena cava is moderately dilated. MMode 2D Measurements and Calculations IVSd 1.5 cm IVSs 1.5 cm LVIDd 3.4 cm LVIDs 2.6 cm LVPWd 1.1 cm LVPWs 1.8 cm IVS/LVPW 1.3 FS 23.2 % EDV(Teich) 49.0 ml ESV(Teich) 25.7 ml EF(Teich) 47.5 % EDV(cubed) 40.9 ml ESV(cubed) 18.6 ml EF(cubed) 54.7 % % IVS thick 3.5 % % LVPW thick 55.1 % LV mass(C)d 150.3 grams LV mass(C)dI 72.6 grams/m\S\2 LV mass(C)s 157.9 grams LV mass(C)sI 76.3 grams/m\S\2 SV(Teich) 23.3 ml SI(Teich) 11.2 ml/m\S\2 SV(cubed) 22.4 ml SI(cubed) 10.8 ml/m\S\2 Ao root diam 3.7 cm Ao root area 10.9 cm\S\2 ACS 2.0 cm LA dimension 3.0 cm LA/Ao 0.79 LVAd ap4 26.6 cm\S\2 LVLd ap4 8.9 cm EDV(MOD-sp4) 68.1 ml EDV(sp4-el) 68.0 ml LVAs ap4 17.3 cm\S\2 LVLs ap4 8.2 cm ESV(MOD-sp4) 33.8 ml ESV(sp4-el) 30.8 ml EF(MOD-sp4) 50.3 % EF(sp4-el) 54.6 % LVAd ap2 20.4 cm\S\2 LVLd ap2 6.4 cm EDV(MOD-sp2) 52.6 ml EDV(sp2-el) 55.4 ml LVAs ap2 12.9 cm\S\2 LVLs ap2 5.3 cm ESV(MOD-sp2) 26.2 ml ESV(sp2-el) 26.9 ml EF(MOD-sp2) 50.1 % EF(sp2-el) 51.5 % LVLd %diff -38.98 % EDV(MOD-bp) 70.7 ml LVLs %diff -55.66 % ESV(MOD-bp) 35.8 ml EF(MOD-bp) 49.3 % SV(MOD-sp4) 34.3 ml SI(MOD-sp4) 16.6 ml/m\S\2 SV(MOD-sp2) 26.4 ml SI(MOD-sp2) 12.7 ml/m\S\2 SV(MOD-bp) 34.8 ml SI(MOD-bp) 16.8 ml/m\S\2 SV(sp4-el) 37.1 ml SI(sp4-el) 17.9 ml/m\S\2 SV(sp2-el) 28.5 ml SI(sp2-el) 13.8 ml/m\S\2 Doppler Measurements and Calculations MV E max simeon 41.7 cm/sec MV A max simeon 52.4 cm/sec MV E/A 0.80 MV dec time 0.15 sec Ao V2 max 60.8 cm/sec Ao max PG 1.5 mmHg Ao max PG (full) 0.09 mmHg LV V1 max PG 1.4 mmHg LV V1 max 58.9 cm/sec PA V2 max 69.0 cm/sec PA max PG 1.9 mmHg TR max simeon 274.6 cm/sec
[2017-11-13] MEDS: TAMSULOSIN HCL 0.4 MG CAP PO SCH (20:29)
[2017-11-13] MEDS: CEFTRIAXONE SOD INJ 1 GM in DEXTROSE 5% ADD-VANTAGE 50ML 50 ML IV SCH (21:57)
[2017-11-14] MEDS: HEPARIN 25,000 UNIT/500ML D5W 500 ML IV SCH ×2 (02:30→20:44)
[2017-11-14 04:00] VITALS: BP 116/72; PULSE 67; TEMP 36.4; O2SAT 91
[2017-11-14 06:14] LABS: BASO % 0.3 %; BASO ABS # 0.02 K/uL (0-0.2); EOS % 2.7 %; EOS ABS # 0.17 K/uL (0-0.5); HEMATOCRIT 39.9 % (42-52); HEMOGLOBIN 13.3 g/dL (14.0-18.0); IG# 0.03 K/uL (0.00-0.02); LYMPH ABS # 1.53 K/uL (1.2-3.4); MEAN CELL VOLUME 91.5 fL (80-100); MEAN CORPUSCULAR HEMOGLOBIN 30.5 pg (25-34); MEAN CORPUSCULAR HGB CONC 33.3 g/dl (32-36); MEAN PLATELET VOLUME 11.9 fL (7.4-10.4); MONO % 15.9 %; MONO ABS # 1.01 K/uL (0.11-0.59); NEUT % 56.6 %; NEUT ABS # 3.61 K/uL (1.4-6.5); PLATELET COUNT 123 K/uL (130-400); RED CELL DISTRIBUTION WIDTH CV 13.7 % (11.5-14.5); RED CELL DISTRIBUTION WIDTH SD 45.7 fL (36.4-46.3); WHITE BLOOD COUNT 6.37 K/uL (4.8-10.8)
[2017-11-14 06:38] LABS: PTT PATIENT 56.8 SECONDS (21.0-31.0)
[2017-11-14 06:52] LABS: CALCIUM 8.3 mg/dl (8.5-10.1); CREATININE 0.56 mg/dl (0.60-1.40); POTASSIUM 3.6 mmol/L (3.5-5.1)
[2017-11-14 07:31] VITALS: BP 110/70; PULSE 65; TEMP 36.6; O2SAT 95
[2017-11-14] MEDS: BENZTROPINE MESYLATE 0.5 MG TAB PO SCH (09:42)
[2017-11-14] MEDS: CYANOCOBALAMIN 500 MCG TAB (VIT B-12) PO SCH (09:42)
[2017-11-14] MEDS: CHOLECALCIFEROL 1000 INTER.UNIT TAB PO SCH (09:42)
[2017-11-14] MEDS: TOCOPHERYL, DL-ALPHA 400 INTER.UNIT CAP PO SCH (09:42)
[2017-11-14] MEDS: CARBIDOPA/LEVODOPA 25/100MG TAB PO SCH ×5 (09:43→20:57)
[2017-11-14] MEDS: ASCORBIC ACID 500 MG TAB PO SCH (09:43)
[2017-11-14 11:42] VITALS: BP 115/73; PULSE 66; TEMP 36.8; O2SAT 94
[2017-11-14 14:54] VITALS: BP 115/74; PULSE 66; TEMP 36.9; O2SAT 92
[2017-11-14 20:30] VITALS: BP 115/72; PULSE 70; TEMP 36.6; O2SAT 93
[2017-11-14] MEDS: ROPINIROLE HCL 1 MG TAB PO SCH ×2 (20:57→23:40)
[2017-11-14] MEDS: TAMSULOSIN HCL 0.4 MG CAP PO SCH (20:57)
[2017-11-14] MEDS: CEFTRIAXONE SOD INJ 1 GM in DEXTROSE 5% ADD-VANTAGE 50ML 50 ML IV SCH (20:58)
--- NOTE | 2017-11-14 22:18 | Progress Note ---
Subjective Date of Service: Nov 14, 2017. Subjective 72 yo male reports no new symptoms today. Problem List Medical Problems: (1) Anemia Status: Chronic (2) Elevated troponin Status: Acute (3) Fall Status: Acute (4) Fall at home Status: Acute (5) Falling Status: Acute (6) Hypoxia Status: Acute (7) Nondisplaced fracture of greater trochanter of right femur Status: Acute (8) Carey's syndrome Status: Chronic (9) Parkinson disease Status: Chronic (10) Parkinsons disease Status: Chronic (11) Pulmonary emboli Status: Acute (12) Scalp laceration Status: Acute (13) SOB (shortness of breath) Status: Acute (14) Weakness Status: Acute Review of Systems Constitutional: No fever, No chills Eyes: No eye pain ENT: No hearing loss Respiratory: + shortness of breath, No cough Cardiac: No chest pain Abdomen: No pain Musculoskeletal: No joint pain Neurologic: + weakness Psychiatric: No depression symptoms Heme: No abnormal bleeding/bruising Endo: + fatigue Skin: No rash Objective Vital Signs Date Time Temp Pulse Resp B/P (MAP) Pulse Ox O2 Delivery O2 Flow Rate FiO2 11/14/17 20:39 Nasal Cannula 2.0 11/14/17 20:30 36.6 70 20 115/72 (86) 93 2.0 11/14/17 16:00 Nasal Cannula 2.0 11/14/17 14:54 36.9 66 20 115/74 (88) 92 11/14/17 11:42 36.8 66 20 115/73 (87) 94 11/14/17 08:00 Nasal Cannula 2.0 11/14/17 07:31 36.6 65 20 110/70 (83) 95 11/14/17 04:00 36.4 67 20 116/72 (87) 91 Nasal Cannula 2.0 11/14/17 00:00 Room Air 11/13/17 23:42 36.6 68 18 103/67 (79) 95 2.0 Physical Exam Comments: General Appearance: WD/WN, no apparent distress Eyes: PERRL ENT: normal ENT inspection Neck: supple, no adenopathy Respiratory/Chest: lungs clear, normal breath sounds Cardiovascular: regular rate, rhythm, no edema Abdomen: normal bowel sounds, non tender, soft Extremities: normal inspection Neurologic/Psychiatric: alert, oriented x 3 Skin: normal color Lymphatic: no adenopathy Laboratory Results Last 24 Hours Test 11/14/17 05:48 White Blood Count 6.37 K/uL Red Blood Count 4.36 M/uL Hemoglobin 13.3 g/dL Hematocrit 39.9 % Mean Corpuscular Volume 91.5 fL Mean Corpuscular Hemoglobin 30.5 pg Mean Corpuscular Hemoglobin Concent 33.3 g/dl Platelet Count 123 K/uL Mean Platelet Volume 11.9 fL Neutrophils (%) (Auto) 56.6 % Lymphocytes (%) (Auto) 24.0 % Monocytes (%) (Auto) 15.9 % Eosinophils (%) (Auto) 2.7 % Basophils (%) (Auto) 0.3 % Neutrophils # (Auto) 3.61 K/uL Lymphocytes # (Auto) 1.53 K/uL Monocytes # (Auto) 1.01 K/uL Eosinophils # (Auto) 0.17 K/uL Basophils # (Auto) 0.02 K/uL RDW Standard Deviation 45.7 fL RDW Coefficient of Variation 13.7 % Immature Granulocyte % (Auto) 0.5 % Immature Granulocyte # (Auto) 0.03 K/uL Activated Partial Thromboplast Time 56.8 SECONDS Partial Thromboplastin Ratio 2.2 Sodium Level 135 mmol/L Potassium Level 3.6 mmol/L Chloride Level 103 mmol/L Carbon Dioxide Level 26 mmol/L Anion Gap 6.0 mmol/L Blood Urea Nitrogen 14 mg/dl Creatinine 0.56 mg/dl Est Creatinine Clear Calc Drug Dose 132.7 ml/min Estimated GFR () 118.9 Estimated GFR (Non- 102.6 BUN/Creatinine Ratio 25.1 Random Glucose 88 mg/dl Calcium Level 8.3 mg/dl Assessment and Plan 72-year-old male with progressive Parkinson's disease that presents with shortness of breath. He had 2 falls yesterday with no injury. He was found to have an elevated troponin of 0.83 with EKG findings suggested of right heart strain with S1Q3T3 pattern. CTA of the chest revealed a saddle embolus of the pulmonary artery as well as bulky bilateral pulmonary emboli. Patient is oxygenating well with 2 L. He has no hemoptysis. Patient meets criteria for admission for heparin drip with bolus and further management of acute pulmonary emboli with saddle embolus noted. Acute LLE DVT likely causing pulmonary embolism Acute saddle emboli/bilateral pulmonary emboli * A weight-based heparin drip was initiated with bolus in the emergency department * Patient will be admitted to the telemetry unit for anticoagulation and monitoring due to EKG with S1Q3T3 pattern and bump in troponin * Check serial troponin: peaked at .8 and has been trending down. * Check a complete echocardiogram with bubble study * The right ventricular systolic function is moderately reduced. * Right ventricular systolic pressure is elevated at 40-50mmHg. * The inferior vena cava is moderately dilated. * The right ventricle is moderately dilated. * Acute LLE DVT was shown. Patient will likely benefit from SVC filter. Will consult vascular surgery on Thursday. * Systemic TPA administration versus catheter directed TPA versus mechanical thrombectomy was discussed with patient and his * Patient was clear that he does not want to be transferred to another facility. He also does not want to take the risk of TPA administration with possibility of cerebral hemorrhage due to his already deteriorated condition secondary to Parkinson's * No indication for pulmonary consult at this time as patient is oxygenating relatively well and has no hemoptysis or pleuritic chest pain * Will consult vascular surgery tomorrow for IVC filter. Elevated troponin likely emand ischemia (type 2 Myocardial infarction) * Bump in troponin most likely secondary to saddle embolus and bilateral pulmonary emboli * trending down peaked at .8 * Patient denies any chest pain. * Follow on telemetry Parkinson's disease * Complete bedrest for now pending lower extremity duplex scan * If duplex is negative patient can increase activity and will need PT/OT evaluation * Continue home doses of carbidopa/levodopa (Sinemet) as well as Cogentin * No indication for neurology consult at this time Right heart failure: Shown by echocardiogram. will monitor I's and O's GI * Continue with probiotic * No indication for PPI or H2 mary kate Dyspnea with Hypoxia Patient is no longer symptomatic. BUT CONTINUES TO REQUIRE OXYGEN. Patient is on 2 liters. * Most likely secondary to pulmonary emboli and saddle embolus * Continue to monitor on telemetry with vital signs per protocol * No history of tobacco abuse * No hemoptysis * No purulent sputum or change in cough * Afebrile * No significant leukocytosis ID * History of UTI * Urinalysis is pending * No indication for antibiotics at this time DVT prophylaxis * Patient started on weight-based heparin drip for pulmonary emboli and saddle embolus * No SCDs or teds pending lower extremity duplex * Duplex ordered to rule out DVT * Bedrest as DVT was confirmed Spent 25 minutes managing patient.
[2017-11-14 23:38] VITALS: BP 113/75; PULSE 69; TEMP 36.6; O2SAT 92
[2017-11-14] MEDS: CARBIDOPA/LEVODOPA 50/200MG EXT REL TAB PO SCH (23:40)
[2017-11-15 02:45] VITALS: BP 104/66; PULSE 66; TEMP 36.6; O2SAT 95
[2017-11-15 06:13] LABS: BASO % 0.1 %; BASO ABS # 0.01 K/uL (0-0.2); EOS % 2.4 %; EOS ABS # 0.17 K/uL (0-0.5); HEMATOCRIT 38.6 % (42-52); IG# 0.03 K/uL (0.00-0.02); LYMPH % 22.8 %; LYMPH ABS # 1.61 K/uL (1.2-3.4); MEAN CELL VOLUME 91.5 fL (80-100); MEAN CORPUSCULAR HEMOGLOBIN 30.8 pg (25-34); MEAN CORPUSCULAR HGB CONC 33.7 g/dl (32-36); MEAN PLATELET VOLUME 11.8 fL (7.4-10.4); MONO % 12.3 %; MONO ABS # 0.87 K/uL (0.11-0.59); NEUT ABS # 4.38 K/uL (1.4-6.5); PLATELET COUNT 154 K/uL (130-400); RED CELL DISTRIBUTION WIDTH CV 13.6 % (11.5-14.5); WHITE BLOOD COUNT 7.07 K/uL (4.8-10.8)
[2017-11-15 06:39] LABS: PTT PATIENT 53.1 SECONDS (21.0-31.0)
[2017-11-15 06:53] LABS: CALCIUM 7.9 mg/dl (8.5-10.1); CREATININE 0.59 mg/dl (0.60-1.40); POTASSIUM 3.8 mmol/L (3.5-5.1)
[2017-11-15 07:33] VITALS: BP 125/77; PULSE 63; TEMP 36.9; O2SAT 93
[2017-11-15] MEDS: TOCOPHERYL, DL-ALPHA 400 INTER.UNIT CAP PO SCH (08:45)
[2017-11-15] MEDS: CYANOCOBALAMIN 500 MCG TAB (VIT B-12) PO SCH (08:45)
[2017-11-15] MEDS: BENZTROPINE MESYLATE 0.5 MG TAB PO SCH (08:45)
[2017-11-15] MEDS: ASCORBIC ACID 500 MG TAB PO SCH (08:45)
[2017-11-15] MEDS: CARBIDOPA/LEVODOPA 25/100MG TAB PO SCH ×5 (08:46→20:44)
[2017-11-15] MEDS: CHOLECALCIFEROL 1000 INTER.UNIT TAB PO SCH (08:46)
[2017-11-15 11:15] VITALS: BP 120/68; PULSE 63; TEMP 36.9; O2SAT 94
[2017-11-15] MEDS: HEPARIN 25,000 UNIT/500ML D5W 500 ML IV SCH (13:56)
[2017-11-15 14:59] VITALS: BP 117/75; PULSE 66; TEMP 36.5; O2SAT 93
[2017-11-15 20:40] VITALS: BP 117/75; PULSE 66; TEMP 36.5; O2SAT 93
[2017-11-15] MEDS: TAMSULOSIN HCL 0.4 MG CAP PO SCH (20:43)
[2017-11-15] MEDS: CEFTRIAXONE SOD INJ 1 GM in DEXTROSE 5% ADD-VANTAGE 50ML 50 ML IV SCH (20:44)
[2017-11-15] MEDS: ROPINIROLE HCL 1 MG TAB PO SCH ×2 (20:44→23:36)
--- NOTE | 2017-11-15 23:32 | Progress Note ---
Subjective Date of Service: Nov 15, 2017. Subjective Pt evaluation today including: conversation w/ patient, physical exam Patient reports feeling well, Patient has no new complaints. Problem List Medical Problems: (1) Anemia Status: Chronic (2) Elevated troponin Status: Acute (3) Fall Status: Acute (4) Fall at home Status: Acute (5) Falling Status: Acute (6) Hypoxia Status: Acute (7) Nondisplaced fracture of greater trochanter of right femur Status: Acute (8) Jeff's syndrome Status: Chronic (9) Parkinson disease Status: Chronic (10) Parkinsons disease Status: Chronic (11) Pulmonary emboli Status: Acute (12) Scalp laceration Status: Acute (13) SOB (shortness of breath) Status: Acute (14) Weakness Status: Acute Review of Systems Constitutional: No fever, No chills Eyes: No eye pain ENT: No hearing loss Respiratory: + shortness of breath, No cough Cardiac: No chest pain Abdomen: No pain Musculoskeletal: No joint pain Neurologic: + weakness Psychiatric: No depression symptoms Heme: No abnormal bleeding/bruising Endo: + fatigue Skin: No rash Objective Vital Signs Date Time Temp Pulse Resp B/P (MAP) Pulse Ox O2 Delivery O2 Flow Rate FiO2 11/15/17 20:40 36.5 66 16 117/75 (89) 93 Room Air 11/15/17 20:02 Nasal Cannula 2.0 11/15/17 16:00 Nasal Cannula 2.0 11/15/17 14:59 36.5 66 20 117/75 (89) 93 Nasal Cannula 2.0 11/15/17 11:15 36.9 63 20 120/68 (85) 94 11/15/17 08:00 Nasal Cannula 2.0 11/15/17 07:33 36.9 63 20 125/77 (93) 93 11/15/17 02:45 36.6 66 20 104/66 (79) 95 Nasal Cannula 2.0 11/14/17 23:38 36.6 69 20 113/75 (88) 92 2.0 Physical Exam Comments: General Appearance: WD/WN, no apparent distress Eyes: PERRL ENT: normal ENT inspection Neck: supple, no adenopathy Respiratory/Chest: lungs clear, normal breath sounds Cardiovascular: regular rate, rhythm, no edema Abdomen: normal bowel sounds, non tender, soft Extremities: normal inspection Neurologic/Psychiatric: alert, oriented x 3 Skin: normal color Lymphatic: no adenopathy Laboratory Results Last 24 Hours Test 11/15/17 06:02 White Blood Count 7.07 K/uL Red Blood Count 4.22 M/uL Hemoglobin 13.0 g/dL Hematocrit 38.6 % Mean Corpuscular Volume 91.5 fL Mean Corpuscular Hemoglobin 30.8 pg Mean Corpuscular Hemoglobin Concent 33.7 g/dl Platelet Count 154 K/uL Mean Platelet Volume 11.8 fL Neutrophils (%) (Auto) 62.0 % Lymphocytes (%) (Auto) 22.8 % Monocytes (%) (Auto) 12.3 % Eosinophils (%) (Auto) 2.4 % Basophils (%) (Auto) 0.1 % Neutrophils # (Auto) 4.38 K/uL Lymphocytes # (Auto) 1.61 K/uL Monocytes # (Auto) 0.87 K/uL Eosinophils # (Auto) 0.17 K/uL Basophils # (Auto) 0.01 K/uL RDW Standard Deviation 45.0 fL RDW Coefficient of Variation 13.6 % Immature Granulocyte % (Auto) 0.4 % Immature Granulocyte # (Auto) 0.03 K/uL Activated Partial Thromboplast Time 53.1 SECONDS Partial Thromboplastin Ratio 2.0 Sodium Level 135 mmol/L Potassium Level 3.8 mmol/L Chloride Level 103 mmol/L Carbon Dioxide Level 26 mmol/L Anion Gap 6.0 mmol/L Blood Urea Nitrogen 8 mg/dl Creatinine 0.59 mg/dl Est Creatinine Clear Calc Drug Dose 125.8 ml/min Estimated GFR () 116.4 Estimated GFR (Non- 100.4 BUN/Creatinine Ratio 13.8 Random Glucose 87 mg/dl Calcium Level 7.9 mg/dl Assessment and Plan 72-year-old male with progressive Parkinson's disease that presents with shortness of breath. He had 2 falls yesterday with no injury. He was found to have an elevated troponin of 0.83 with EKG findings suggested of right heart strain with S1Q3T3 pattern. CTA of the chest revealed a saddle embolus of the pulmonary artery as well as bulky bilateral pulmonary emboli. Patient is oxygenating well with 2 L. He has no hemoptysis. Patient meets criteria for admission for heparin drip with bolus and further management of acute pulmonary emboli with saddle embolus noted. Acute LLE DVT likely causing pulmonary embolism Acute saddle emboli/bilateral pulmonary emboli * A weight-based heparin drip was initiated with bolus in the emergency department * Patient will be admitted to the telemetry unit for anticoagulation and monitoring due to EKG with S1Q3T3 pattern and bump in troponin * Check serial troponin: peaked at .8 and has been trending down. * Check a complete echocardiogram with bubble study * The right ventricular systolic function is moderately reduced. * Right ventricular systolic pressure is elevated at 40-50mmHg. * The inferior vena cava is moderately dilated. * The right ventricle is moderately dilated. * Acute LLE DVT was shown. Patient will likely benefit from IVC filter. Will consult vascular surgery today. * Systemic TPA administration versus catheter directed TPA versus mechanical thrombectomy was discussed with patient and his * Patient was clear that he does not want to be transferred to another facility. He also does not want to take the risk of TPA administration with possibility of cerebral hemorrhage due to his already deteriorated condition secondary to Parkinson's * No indication for pulmonary consult at this time as patient is oxygenating relatively well and has no hemoptysis or pleuritic chest pain * Will consult vascular surgery today for SVC filter. Elevated troponin likely emand ischemia (type 2 Myocardial infarction) * Bump in troponin most likely secondary to saddle embolus and bilateral pulmonary emboli * trending down peaked at .8 * Patient denies any chest pain. * Follow on telemetry Parkinson's disease * Complete bedrest for now pending lower extremity duplex scan * If duplex is negative patient can increase activity and will need PT/OT evaluation * Continue home doses of carbidopa/levodopa (Sinemet) as well as Cogentin * No indication for neurology consult at this time Right heart failure: Shown by echocardiogram. will monitor I's and O's GI * Continue with probiotic * No indication for PPI or H2 mary kate Dyspnea with Hypoxia Patient is no longer symptomatic. BUT CONTINUES TO REQUIRE OXYGEN. Patient is on 2 liters. * Most likely secondary to pulmonary emboli and saddle embolus * Continue to monitor on telemetry with vital signs per protocol * No history of tobacco abuse * No hemoptysis * No purulent sputum or change in cough * Afebrile * No significant leukocytosis ID * History of UTI * Urinalysis is pending * No indication for antibiotics at this time DVT prophylaxis * Patient started on weight-based heparin drip for pulmonary emboli and saddle embolus * No SCDs or teds pending lower extremity duplex * Duplex confirmed DVT * Bedrest until IVC Filter done.
[2017-11-15] MEDS: CARBIDOPA/LEVODOPA 50/200MG EXT REL TAB PO SCH (23:36)
[2017-11-16] VITALS (8 sets, daily range): BP systolic 105–132; BP diastolic 66–79; PULSE 62–71; TEMP 36.5–37.1; O2SAT 91–94
[2017-11-16 06:16] LABS: PTT PATIENT 51.7 SECONDS (21.0-31.0)
[2017-11-16] MEDS: CARBIDOPA/LEVODOPA 25/100MG TAB PO SCH ×5 (07:47→20:44)
[2017-11-16] MEDS: ASCORBIC ACID 500 MG TAB PO SCH (07:49)
[2017-11-16] MEDS: CHOLECALCIFEROL 1000 INTER.UNIT TAB PO SCH (07:49)
[2017-11-16] MEDS: TOCOPHERYL, DL-ALPHA 400 INTER.UNIT CAP PO SCH (07:49)
[2017-11-16] MEDS: CYANOCOBALAMIN 500 MCG TAB (VIT B-12) PO SCH (07:49)
[2017-11-16] MEDS: BENZTROPINE MESYLATE 0.5 MG TAB PO SCH (07:50)
[2017-11-16] MEDS: HEPARIN 25,000 UNIT/500ML D5W 500 ML IV SCH (08:00)
--- NOTE | 2017-11-16 08:41 | History and Physical ---
History & Physical Date Nov 16, 2017. History of Present Illness Vitals Vital Signs Past 12 Hours Date Time Temp Pulse Resp B/P (MAP) Pulse Ox O2 Delivery O2 Flow Rate FiO2 11/16/17 07:27 37.1 62 18 118/74 (89) 91 1.0 11/16/17 04:00 36.7 69 20 111/70 (84) 93 2.0 11/16/17 00:23 36.5 67 20 110/66 (81) 92 2.0 11/16/17 00:00 Nasal Cannula 2.0 11/15/17 20:40 36.5 66 16 117/75 (89) 93 Room Air Allergies Coded Allergies: Poison Nguyen Extract/Poison Hampton Extra (Verified Allergy, Severe, rash, itchy , 11/12/17) Does not need to have physical contact to have reaction. Hydromorphone (Verified Allergy, Unknown, hives on trunk, 11/12/17) POLLEN (Verified Allergy, Unknown, SNEEZING,RUNNY NOSE, 11/12/17) G.Domesticus Dust Mite (Verified Adverse Reaction, Intermediate, Sneeze, cough, 11/12/17) Home Medications Scheduled Ascorbic Acid (Vitamin C), 1,000 MG PO QAM Benztropine Mesylate (Benztropine Mesylate), 0.5 MG PO QAM Carbidopa/Levodopa (Sinemet Cr 50MG/200MG), 1 TAB PO midnight Carbidopa/Levodopa (Sinemet 25MG/100MG), 1.5 TAB PO 5XD Cholecalciferol (Vitamin D3), 2,000 UNITS PO QAM Cyanocobalamin (Vitamin B12 500MCG), 1,000 MCG PO QAM Dutasteride (Avodart), 0.5 MG PO NOON Probiotic Product (Probiotic), 1 TAB PO QAM Ropinirole (Requip), 0.5 MG PO UD Tamsulosin Hcl (Flomax), 0.4 MG PO HS Vitamin E (E-400), 400 UNITS PO QAM Scheduled PRN Loperamide Hcl (Imodium), 2 MG PO DAILY PRN for Diarrhea Problem List Medical Problems: (1) Abdomen enlarged (2) Adynamic ileus (3) Anemia (4) Bilateral pulmonary embolism (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 (6) Fall (7) Leukocytosis (8) Lip laceration (9) Jeff's syndrome (10) Parkinson disease (11) Parkinsons disease (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 (13) Saddle embolus (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 (15) UTI (urinary tract infection) (16) Volvulus (17) Weakness Surgical Problems: (1) 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
--- NOTE | 2017-11-16 09:02 | Surgery Consultation ---
Consultation Date of Service Nov 16, 2017. Chief Complaint PE, DVT, Right heart strain, fall history History of Present Illness The patient is a 72 year old male who has acute DVT of the left leg with saddle embolism and right heart strain. He presented with SOB on still requires oxygen. He does have a significant fall history due to his progressive Parkinson's disease. No previous history of DVT or PE. Vitals Vital Signs Past 12 Hours Date Time Temp Pulse Resp B/P (MAP) Pulse Ox O2 Delivery O2 Flow Rate FiO2 11/16/17 07:27 37.1 62 18 118/74 (89) 91 1.0 11/16/17 04:00 36.7 69 20 111/70 (84) 93 2.0 11/16/17 00:23 36.5 67 20 110/66 (81) 92 2.0 11/16/17 00:00 Nasal Cannula 2.0 Allergies Coded Allergies: Poison Nguyen Extract/Poison [place] Extra (Verified Allergy, Severe, rash, itchy , 11/12/17) Does not need to have physical contact to have reaction. Hydromorphone (Verified Allergy, Unknown, hives on trunk, 11/12/17) POLLEN (Verified Allergy, Unknown, SNEEZING,RUNNY NOSE, 11/12/17) G.Domesticus Dust Mite (Verified Adverse Reaction, Intermediate, Sneeze, cough, 11/12/17) Home Medications Scheduled Ascorbic Acid (Vitamin C), 1,000 MG PO QAM Benztropine Mesylate (Benztropine Mesylate), 0.5 MG PO QAM Carbidopa/Levodopa (Sinemet Cr 50MG/200MG), 1 TAB PO midnight Carbidopa/Levodopa (Sinemet 25MG/100MG), 1.5 TAB PO 5XD Cholecalciferol (Vitamin D3), 2,000 UNITS PO QAM Cyanocobalamin (Vitamin B12 500MCG), 1,000 MCG PO QAM Dutasteride (Avodart), 0.5 MG PO NOON Probiotic Product (Probiotic), 1 TAB PO QAM Ropinirole (Requip), 0.5 MG PO UD Tamsulosin Hcl (Flomax), 0.4 MG PO HS Vitamin E (E-400), 400 UNITS PO QAM Scheduled PRN Loperamide Hcl (Imodium), 2 MG PO DAILY PRN for Diarrhea Problem List Medical Problems: (1) Abdomen enlarged (2) Adynamic ileus (3) Anemia (4) Bilateral pulmonary embolism (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 (6) Fall (7) Leukocytosis (8) Lip laceration (9) Jeff's syndrome (10) Parkinson disease (11) Parkinsons disease (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 (13) Saddle embolus (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 (15) UTI (urinary tract infection) (16) Volvulus (17) Weakness Surgical Problems: (1) Odette-prosthetic fracture of femur following total hip arthroplasty (2) S/P appendectomy (3) S/P hip replacement (4) S/P ORIF (open reduction internal fixation) fracture Surgical / Medical History Hx Cardiac Surgery: No Hx Abdominal Surgery: No Hx Cancer Surgery: No Hx Thoracic Surgery: No Hx Orthopedic: Yes Hx Urinary Tract Surgery: No HX Other Surgery: Yes Past Medical/Surgical History: Arthritis Family History FH: heart disease Social History Smoking Status: Never Smoker Hx Tobacco Use In Past Year?: No Hx Alcohol Use - Type & Amnt: Yes (wine a day ) Hx Substance Use -Type & Amnt: No Review of Systems Constitutional: No chills, No diaphoresis, No fever, No malaise, No weakness, No weight gain, No weight loss, No sweats, No fatigue, No problem reported Respiratory: + cough, + cyanosis, + BARRON, + hemoptysis, + orthopnea, + PND, + sputum production, + stridor, + wheezing, + dyspnea, + problem reported Cardiovascular: No chest pain, No chest tightness, No chest pressure, No palpitations, No syncope, No diaphoresis, No edema, No intermittent claudication , No orthopnea, No cyanosis, No mumur, No lightheadedness, No paroxysmal nocturnal dyspnea, No problem reported Gastrointestinal: No abdominal pain, No constipation, No diarrhea, No nausea, No vomiting, No anorexia, No appetite changes, No belching, No flatulence, No food intolerance, No hematemesis, No hemorrhoids, No hematochezia, No stool changes, No heartburn, No indigestion, No dysphagia, No rectal bleeding, No problem reported Genitourinary - Male: No impotence, No penile discharge, No penile itching, No rash, No testicular pain, No testicular swelling, No hematuria, No difficulty urinating, No problem reported Musculoskeletal: No back pain, No gout, No joint pain, No joint swelling, No muscle pain, No muscle stiffness, No muscle weakness, No neck pain, No problem reported Neurologic: No dizziness, No weakness, No headache, No lethargy, No numbness, No paresthesia, No pre-existing deficit, No seizures, No tics, No tingling, No tremors, No vertigo, No memory loss, No LOC, No problem reported Psychiatric: No anxiety, No alcohol abuse, No auditory hallucinations, No depression, No drug abuse, No homicidal ideation, No mood changes, No suicidal ideation, No visual hallucinations, No problem reported Physical Exam Constitutional: General Apperance: heathly-appearing, well-nourished, well-developed Level of Distress: NAD Ambulation: limited ambulation Psychiatric: Mental Status: active & alert, normal mood, normal affect Orientation: oriented except where noted, to time, to place, to person Memory: recent memory normal, remote memory normal Lungs: Auscultation: breath sounds normal Cardiovascular: Heart Auscultation: RRR Peripheral Pulses: Pulses: full and equal, in all extremities except if noted Abdomen: Inspection & Palpation: soft Musculoskeletal: normal Extremities: Upper Right: no cyanosis, no edema, no varicosities, no palpable cord, no clubbing, no ulcers, no mottling Upper Left: no cyanosis, no edema, no varicosities, no palpable cord, no clubbing, no ulcers, no mottling Lower Right: no cyanosis, no varicosities, no palpable cord, no clubbing, no ulcers, no mottling, edema Lower Left: no cyanosis, no varicosities, no palpable cord, no clubbing, no ulcers, no mottling, edema Neurologic: Cranial Nerves: grossly intact Sensation: grossly intact Assessment and Plan Imp: PE Acute DVT Fall history Plan: Due to worsening Parkinson's disease and frequent fall history would recommend insertion of vena cava filter which most likely be permanent. I have discussed the risks options and benefits of the procedure with the patient. The patient understands the risks options and benefits and agrees to the procedure. This will be done tomorrow morning. Thank you very much for letting me participate in the care of this patient.
--- NOTE | 2017-11-16 13:36 | Clinical Documentation Query ---
CLINICAL DOCUMENTATION QUERY Dr. VICTORIA, In your clinical opinion is this patient being managed for: ( ) acute cor pulmonale in the setting of acute PE ( x ) Not Agree ( ) Other explanation of clinical findings (No explanation is considered a No Response) ( ) Unable to determine ( ) Need to Discuss (Phone CDS or qliq) (No discussion is considered a No Response) The medical record reflects the following clinical findings, treatment, and risk factors. Clinical Indicators: 72 yo male presenting with constant weakness and falls. Found to have Bulky bilateral pulmonary emboli/saddle embolism. ECHO showed RV systolic function moderately reduced with RV moderately dilated. Treatment: tele monitoring, ECHO, O2 support, IV heparin gtt, monitor I/O Risk Factors: age, saddle embolism Please clarify and document your clinical opinion in the progress notes and discharge summary. Terms such as "probable", "suspected", "likely", "questionable", "possible", or "still to be ruled out" are acceptable. IF IN AGREEMENT, YOU MUST DOCUMENT ABOVE DIAGNOSTIC STATEMENT IN DAILY PROGRESS NOTES AND DISCHARGE SUMMARY. This document is not part of the patient's record. Thank You, Ellyn Payan, RN [phone]
--- NOTE | 2017-11-16 14:03 | Anesthesiology Progress Note ---
Pre-OP Anesthesia Assessment Date of Note Nov 16, 2017. Review patient information reviewed, chart reviewed, labs reviewed, acceptable for surgery Notes Elderly male diagnosed with pulmonary emboli. Scheduled for placement of vena cava filter. PMH is significant for advanced Parkinson's disease, otherwise unremarkable. Reportedly has had anesthesia before without significant complications. Intravenous sedation discussed. Pt expressed understanding and signed informed consent.
[2017-11-16] MEDS: CEFTRIAXONE SOD INJ 1 GM in DEXTROSE 5% ADD-VANTAGE 50ML 50 ML IV SCH (20:44)
[2017-11-16] MEDS: TAMSULOSIN HCL 0.4 MG CAP PO SCH (20:44)
[2017-11-16] MEDS: ROPINIROLE HCL 1 MG TAB PO SCH ×2 (20:44→23:54)
[2017-11-16] MEDS: CARBIDOPA/LEVODOPA 50/200MG EXT REL TAB PO SCH (23:53)
[2017-11-17] VITALS (15 sets, daily range): BP systolic 111–146; BP diastolic 68–85; PULSE 61–78; TEMP 36.2–37.5; O2SAT 90–96
--- NOTE | 2017-11-17 06:07 | Progress Note ---
Subjective Date of Service: Nov 16, 2017. Subjective Pt evaluation today including: conversation w/ patient, physical exam 72 YO MALE with Parkinson's. Patient denies any new symptoms. He states he knows he will be having an IVC filter placed tomorrow. Patient has no questions about this. 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 (9) Parkinson disease Status: Chronic (10) Parkinsons disease Status: Chronic (11) Pulmonary emboli Status: Acute (12) Scalp laceration Status: Acute (13) SOB (shortness of breath) Status: Acute (14) Weakness Status: Acute Review of Systems Constitutional: No fever, No chills Eyes: No eye pain ENT: No hearing loss Respiratory: + shortness of breath, No cough Cardiac: No chest pain Abdomen: No pain Musculoskeletal: No joint pain Neurologic: + weakness Psychiatric: No depression symptoms Heme: No abnormal bleeding/bruising Endo: + fatigue Skin: No rash Objective Vital Signs Date Time Temp Pulse Resp B/P (MAP) Pulse Ox O2 Delivery O2 Flow Rate FiO2 11/17/17 04:45 36.3 62 18 118/77 (91) 94 Nasal Cannula 2.0 11/16/17 23:58 37.0 63 18 105/66 (79) 94 Nasal Cannula 2.0 11/16/17 20:11 37.0 70 20 116/69 (85) 93 Nasal Cannula 2.0 11/16/17 20:10 Nasal Cannula 2.0 11/16/17 15:12 37.1 71 18 116/68 (84) 93 Nasal Cannula 2.0 11/16/17 11:32 36.8 66 16 132/79 (96) 94 2.0 11/16/17 08:23 91 Nasal Cannula 2.0 11/16/17 08:23 91 Nasal Cannula 2.0 11/16/17 07:27 37.1 62 18 118/74 (89) 91 1.0 Physical Exam Comments: General Appearance: WD/WN, no apparent distress Eyes: PERRL ENT: normal ENT inspection Neck: supple, no adenopathy Respiratory/Chest: lungs clear, normal breath sounds Cardiovascular: regular rate, rhythm, no edema Abdomen: normal bowel sounds, non tender, soft Extremities: normal inspection Neurologic/Psychiatric: alert, oriented x 3 Skin: normal color Lymphatic: no adenopathy Laboratory Results Last 24 Hours Test 11/17/17 04:44 Assessment and Plan 72-year-old male with progressive Parkinson's disease that presents with shortness of breath. He had 2 falls yesterday with no injury. He was found to have an elevated troponin of 0.83 with EKG findings suggested of right heart strain with S1Q3T3 pattern. CTA of the chest revealed a saddle embolus of the pulmonary artery as well as bulky bilateral pulmonary emboli. Patient is oxygenating well with 2 L. He has no hemoptysis. Patient meets criteria for admission for heparin drip with bolus and further management of acute pulmonary emboli with saddle embolus noted. Acute LLE DVT likely causing pulmonary embolism Acute saddle emboli/bilateral pulmonary emboli * A weight-based heparin drip was initiated with bolus in the emergency department * Patient will be admitted to the telemetry unit for anticoagulation and monitoring due to EKG with S1Q3T3 pattern and bump in troponin * Check serial troponin: peaked at .8 and has been trending down. * Check a complete echocardiogram with bubble study * The right ventricular systolic function is moderately reduced. * Right ventricular systolic pressure is elevated at 40-50mmHg. * The inferior vena cava is moderately dilated. * The right ventricle is moderately dilated. * Acute LLE DVT was shown. Patient will likely benefit from SVC filter. Will consult vascular surgery today. * Systemic TPA administration versus catheter directed TPA versus mechanical thrombectomy was discussed with patient and his * Patient was clear that he does not want to be transferred to another facility. He also does not want to take the risk of TPA administration with possibility of cerebral hemorrhage due to his already deteriorated condition secondary to Parkinson's * No indication for pulmonary consult at this time as patient is oxygenating relatively well and has no hemoptysis or pleuritic chest pain * IVC filter will be placed tomorrow. * Can then change to NOAC. D/W nurse navigator, co-pay for either eliquis or xarelto will be $20/month Elevated troponin likely demand ischemia (type 2 Myocardial infarction) * Bump in troponin most likely secondary to saddle embolus and bilateral pulmonary emboli * trending down peaked at .8 * Patient denies any chest pain. * Follow on telemetry Parkinson's disease * Complete bedrest for now pending lower extremity duplex scan * If duplex is negative patient can increase activity and will need PT/OT evaluation * Continue home doses of carbidopa/levodopa (Sinemet) as well as Cogentin * No indication for neurology consult at this time Right heart failure: Shown by echocardiogram. will monitor I's and O's GI * Continue with probiotic * No indication for PPI or H2 mary kate Dyspnea with Hypoxia Patient is no longer symptomatic. BUT CONTINUES TO REQUIRE OXYGEN. Patient is on 2 liters. * Most likely secondary to pulmonary emboli and saddle embolus * Continue to monitor on telemetry with vital signs per protocol * No history of tobacco abuse * No hemoptysis * No purulent sputum or change in cough * Afebrile * No significant leukocytosis ID * History of UTI * Urinalysis is pending * No indication for antibiotics at this time DVT prophylaxis * Patient started on weight-based heparin drip for pulmonary emboli and saddle embolus * No SCDs or teds pending lower extremity duplex * Duplex ordered to rule out DVT * Bedrest until IVC Filter done.
--- NOTE | 2017-11-17 06:14 | Progress Note ---
Progress Note Date of Service Nov 17, 2017. Progress Note Patient for insertion of IVC filter today. I have discussed the risks options and benefits of the procedure with the patient. The patient understands the risks options and benefits and agrees to the procedure. I have examined the patient, reviewed the History & Physical and in the interval since the performance of the History & Physical I have noted the following changes of clinical significance: No changes noted
[2017-11-17] MEDS ORDERED: NURSING VERBAL MED ORDER ONE (07:15)
[2017-11-17 07:49] LABS: HEMATOCRIT 40.6 % (42-52); MEAN CELL VOLUME 92.3 fL (80-100); MEAN CORPUSCULAR HEMOGLOBIN 31.8 pg (25-34); MEAN CORPUSCULAR HGB CONC 34.5 g/dl (32-36); MEAN PLATELET VOLUME 11.7 fL (7.4-10.4); PLATELET COUNT 155 K/uL (130-400); RED CELL DISTRIBUTION WIDTH CV 13.7 % (11.5-14.5); RED CELL DISTRIBUTION WIDTH SD 45.6 fL (36.4-46.3); WHITE BLOOD COUNT 6.97 K/uL (4.8-10.8)
[2017-11-17 08:02] LABS: PTT PATIENT 31.2 SECONDS (21.0-31.0)
[2017-11-17] MEDS: CARBIDOPA/LEVODOPA 25/100MG TAB PO SCH ×5 (08:44→21:32)
[2017-11-17] MEDS: BENZTROPINE MESYLATE 0.5 MG TAB PO SCH (08:45)
[2017-11-17] MEDS ORDERED: FENTANYL CITRATE INJ 50 MCG/1 ML 2 ML VIAL ONE (09:42)
[2017-11-17] MEDS ORDERED: MIDAZOLAM HCL 1 MG/ML 2ML VIAL ONE (09:42)
[2017-11-17] MEDS ORDERED: PROPOFOL IV EMULSION 10 MG/ML 20 ML VIAL ONE (09:43)
[2017-11-17] MEDS ORDERED: LIDOCAINE HCL 1% 20 ML VIAL SQ ONE (10:14)
[2017-11-17] MEDS ORDERED: OPTIRAY 300 IV ONE (10:31)
--- NOTE | 2017-11-17 10:34 | [facility] Post Operative Brief Note ---
Immediate Operative Summary Operative Date Nov 17, 2017. Pre-Operative Diagnosis Deep Venous Thrombosis, Frequent Falls, Pulmonary Emboli Post-Operative Diagnosis Deep Venous Thrombosis, Frequent Falls, Pulmonary Emboli Procedure(s) Performed Insertion of Vena Cava Filter, Right Jugular Approach, Ultrasound Localization of Right Internal Jugular Vein, Fluoroscopy for Positioning. Surgeon Dr. Peoples Food Editor Surgeon(s) Vicky Avalos MD Estimated Blood Loss 5 Findings Consistent with Post-Op Diagnosis Specimens None Drains None Anesthesia Type MAC Complication(s) none Disposition Accompanied Pt To Recover: no Disposition: Recovery Room / PACU
--- NOTE | 2017-11-17 10:40 | [facility] Operative Report ---
Operative Report Operative Date Nov 17, 2017. Pre-Operative Diagnosis Deep Venous Thrombosis, Frequent Falls, Pulmonary Emboli Post-Operative Diagnosis Deep Venous Thrombosis, Frequent Falls, Pulmonary Emboli Procedure(s) Performed Insertion of Vena Cava Filter, Right Jugular Approach, Ultrasound Localization of Right Internal Jugular Vein, Fluoroscopy for Positioning. Surgeon Dr. Peoples Electric Arc Welder Surgeon(s) Vicky Avalos MD Estimated Blood Loss 5 Specimens None Anesthesia Type MAC Complication(s) none Disposition Recovery Room / PACU Indications The patient is a 72 year old male with a history of Parkinson's disease and frequent falls who presented to the hospital with SOB and evidence of a PE and lower extremity DVT. Due to his history of falls he was not a good candidate for therapeutic anticoagulation. The risks, benefits and alternatives to an IVC filter were discussed with the patient and he elected to proceed with the procedure. Description of Procedure The patient was brought to the angio suite and placed in the supine position. His right neck was prepped and draped in the typical sterile fashion. He was continued on his scheduled antibiotics. Time out was performed. Local anesthesia was administered with 1% lidocaine. The right IJ was accessed under ultrasound guidance. It was found to be patent. An 0.035 gluidewire was passed into the IVC under fluoroscopic guidance. The IJ puncture site was dilated and a VUELOGIC filter system was inserted. A venogram was completed to identify the location of the renal veins. There was no clot visualized in the IVC. The filter was then placed in the appropriate position under fluoroscopic guidance and deployed. The catheter was removed and pressure was held over the right IJ. Hemostasis was achieved The patient tolerated the procedure well and was brought to the recovery room in good condition. Dr. Peoples was scrubbed and present for the entire procedure. I attest to the content of the Intraoperative Record and any orders documented therein. Any exceptions are noted below.
--- NOTE | 2017-11-17 11:10 | Anesthesiology Progress Note ---
Anesthesia Post Op Note Date & Time Nov 17, 2017 at 11:10 Vital Signs Pain Intensity: 0 Vital Signs Past 12 Hours Date Time Temp Pulse Resp B/P (MAP) Pulse Ox O2 Delivery O2 Flow Rate FiO2 11/17/17 10:55 62 23 115/70 91 Nasal Cannula 2 11/17/17 10:45 64 21 106/65 91 Nasal Cannula 2 11/17/17 10:39 37.3 62 24 108/66 95 Oxymask 10 11/17/17 08:10 36.2 61 18 115/74 (88) 93 Nasal Cannula 2.0 11/17/17 04:45 36.3 62 18 118/77 (91) 94 Nasal Cannula 2.0 11/16/17 23:58 37.0 63 18 105/66 (79) 94 Nasal Cannula 2.0 Notes Mental Status: alert / awake / arousable, participated in evaluation Pt Amnestic to Procedure: Yes Nausea / Vomiting: adequately controlled Pain: adequately controlled Airway Patency, RR, SpO2: stable & adequate BP & HR: stable & adequate Hydration State: stable & adequate Anesthetic Complications: no major complications apparent
[2017-11-17] MEDS ORDERED: EpHEDrine SULFATE INJ 50 MG/ML AMP IV PRN (11:15)
[2017-11-17] MEDS ORDERED: ATROPINE SULFATE 0.1 MG/ML 5ML SYR IV PRN (11:15)
[2017-11-17] MEDS: CHOLECALCIFEROL 1000 INTER.UNIT TAB PO SCH (12:49)
[2017-11-17] MEDS: TOCOPHERYL, DL-ALPHA 400 INTER.UNIT CAP PO SCH (12:49)
[2017-11-17] MEDS: ASCORBIC ACID 500 MG TAB PO SCH (12:49)
[2017-11-17] MEDS: CYANOCOBALAMIN 500 MCG TAB (VIT B-12) PO SCH (12:51)
--- NOTE | 2017-11-17 16:10 | Progress Note ---
Subjective Date of Service: Nov 17, 2017. Subjective Pt evaluation today including: conversation w/ patient, physical exam, lab review, review of inpatient medication list Pain: no chest pain, no leg pain PO Intake: adequate Voiding: no voiding problems patient doing well after IVC filter placement, no complications discussed with RN, will transition to Xarelto 15mg BID from heparin drip patient anxious to get up and get moving, discussed that we would stop his bedrest restriction Problem List Medical Problems: (1) Anemia Status: Chronic (2) Elevated troponin Status: Acute (3) Fall Status: Acute (4) Fall at home Status: Acute (5) Falling Status: Acute (6) Hypoxia Status: Acute (7) Nondisplaced fracture of greater trochanter of right femur Status: Acute (8) Jeff's syndrome Status: Chronic (9) Parkinson disease Status: Chronic (10) Parkinsons disease Status: Chronic (11) Pulmonary emboli Status: Acute (12) Scalp laceration Status: Acute (13) SOB (shortness of breath) Status: Acute (14) Weakness Status: Acute Review of Systems Neurologic: + weakness, + problem reported (Parkinsonian tremor) All Other Systems: Reviewed and Negative Medications Current Inpatient Medications Medications (Trade) Dose Ordered Sig/Mary Route Start Time Stop Time Status Last Admin Dose Admin Acetaminophen (Tylenol Tab) 650 mg Q4H PRN PO 11/12/17 14:00 12/12/17 13:59 Al Hydrox/Mg Hydrox/Simethicone (Maalox Max Susp) 15 ml Q4H PRN PO 11/12/17 14:00 12/12/17 13:59 Magnesium Hydroxide (Milk Of Magnesia Susp) 30 ml Q12H PRN PO 11/12/17 14:00 12/12/17 13:59 Ondansetron HCl (Zofran Inj) 4 mg Q6H PRN IV 11/12/17 14:00 12/12/17 13:59 Polyethylene (Miralax Powder Packet) 17 gm DAILY PRN PO 11/12/17 14:00 12/12/17 13:59 Benztropine Mesylate (Cogentin Tab) 0.5 mg QAM PO 11/13/17 09:00 12/13/17 08:59 11/17/17 08:45 0.5 MG Carbidopa/Levodopa (Sinemet 25/ 100MG Tab) 1.5 tab DAILY@0900,1200,1500,1800,2100 PO 11/12/17 18:00 12/12/17 17:59 11/17/17 12:49 1.5 TAB Carbidopa/Levodopa (Sinemet Cr 50/ 200MG Tab) 1 tab DAILY@0000 PO 11/13/17 00:00 12/13/17 00:00 11/16/17 23:53 1 TAB Cyanocobalamin (Vitamin B-12 Tab) 1,000 mcg QAM PO 11/13/17 09:00 12/13/17 08:59 11/17/17 12:51 1,000 MCG Ropinirole HCl (Requip Tab) 0.5 mg DAILY@0000,2200 PO 11/12/17 22:00 12/12/17 21:59 11/16/17 23:54 0.5 MG Tamsulosin HCl (Flomax Cap) 0.4 mg HS PO 11/12/17 21:00 12/12/17 20:59 11/16/17 20:44 0.4 MG uc-Ajxfw-Mkmfrgttmt Acetate (Vitamin E Cap) 400 interunit QAM PO 11/13/17 09:00 12/13/17 08:59 11/17/17 12:49 400 INTERUNIT Ascorbic Acid (Vitamin C Tab) 1,000 mg QAM PO 11/13/17 09:00 12/13/17 08:59 11/17/17 12:49 1,000 MG Cholecalciferol (Vitamin D Tab) 2,000 inter.unit QAM PO 11/13/17 09:00 12/13/17 08:59 11/17/17 12:49 2,000 INTER.UNIT Miscellaneous Information (Order Awaiting Action) 1 ea QS N/A 11/12/17 16:00 12/12/17 15:59 Ceftriaxone Sodium 1 gm/ Dextrose 50 ml @ 100 mls/hr Q24H IV 11/13/17 21:00 11/23/17 20:59 11/16/17 20:44 100 MLS/HR Ephedrine Sulfate (EpHEDrine SULFATE INJ) 5 mg Q5M PRN IV 11/17/17 11:15 11/17/17 16:15 Atropine Sulfate (Atropine Sulfate 0.1mg/ml Inj) 0.5 mg Q1M PRN IV 11/17/17 11:15 11/17/17 16:15 Rivaroxaban (Xarelto Tab) 15 mg BIDM PO 11/17/17 17:00 12/17/17 16:59 Objective Vital Signs Date Time Temp Pulse Resp B/P (MAP) Pulse Ox O2 Delivery O2 Flow Rate FiO2 11/17/17 15:15 36.9 64 18 118/69 (85) 94 Nasal Cannula 2.0 11/17/17 14:34 36.7 65 20 114/70 (85) 93 Nasal Cannula 2.0 11/17/17 13:38 36.6 70 20 112/68 (83) 95 Nasal Cannula 2.0 11/17/17 12:53 36.5 70 18 144/79 (100) 91 Nasal Cannula 2.0 11/17/17 12:30 36.5 67 18 138/85 (102) 93 2.0 11/17/17 12:20 36.9 64 18 115/74 (88) 90 Nasal Cannula 2.0 11/17/17 12:00 36.5 62 18 124/69 (87) 92 Nasal Cannula 2.0 11/17/17 11:45 36.8 65 18 114/69 (84) 91 Nasal Cannula 2.0 11/17/17 11:30 36.7 61 20 111/68 (82) 92 Nasal Cannula 2.0 11/17/17 11:15 36.4 64 18 115/74 (88) 90 Nasal Cannula 2.0 11/17/17 11:05 37.2 61 24 104/60 92 Nasal Cannula 2 11/17/17 10:55 62 23 115/70 91 Nasal Cannula 2 11/17/17 10:45 64 21 106/65 91 Nasal Cannula 2 11/17/17 10:39 37.3 62 24 108/66 95 Oxymask 10 11/17/17 08:10 36.2 61 18 115/74 (88) 93 Nasal Cannula 2.0 11/17/17 04:45 36.3 62 18 118/77 (91) 94 Nasal Cannula 2.0 11/16/17 23:58 37.0 63 18 105/66 (79) 94 Nasal Cannula 2.0 11/16/17 20:11 37.0 70 20 116/69 (85) 93 Nasal Cannula 2.0 11/16/17 20:10 Nasal Cannula 2.0 Physical Exam General Appearance: WD/WN, no apparent distress Eyes: normal inspection, EOMI, sclerae normal ENT: normal ENT inspection, hearing grossly normal, pharynx normal Neck: supple, no adenopathy, no JVD, trachea midline Respiratory/Chest: chest non-tender, lungs clear, normal breath sounds, no respiratory distress, no accessory muscle use Cardiovascular: regular rate, rhythm, no edema, no gallop, no JVD, no murmur Abdomen: normal bowel sounds, non tender, soft, no organomegaly Extremities: normal range of motion, non-tender, normal inspection, no pedal edema, no calf tenderness, pelvis stable Neurologic/Psychiatric: choke reamer II-XII nml as tested, alert, normal mood/affect, oriented x 3, + motor weakness, + pertinent finding (resting tremor) Skin: normal color, warm/dry, no rash Lymphatic: no adenopathy Laboratory Results Last 24 Hours Test 11/17/17 07:08 White Blood Count 6.97 K/uL Red Blood Count 4.40 M/uL Hemoglobin 14.0 g/dL Hematocrit 40.6 % Mean Corpuscular Volume 92.3 fL Mean Corpuscular Hemoglobin 31.8 pg Mean Corpuscular Hemoglobin Concent 34.5 g/dl RDW Standard Deviation 45.6 fL RDW Coefficient of Variation 13.7 % Platelet Count 155 K/uL Mean Platelet Volume 11.7 fL Activated Partial Thromboplast Time 31.2 SECONDS Partial Thromboplastin Ratio 1.2 Assessment and Plan 72-year-old male with progressive Parkinson's disease that presents with shortness of breath. He had 2 falls yesterday with no injury. He was found to have an elevated troponin of 0.83 with EKG findings suggested of right heart strain with S1Q3T3 pattern. CTA of the chest revealed a saddle embolus of the pulmonary artery as well as bulky bilateral pulmonary emboli. Patient is oxygenating well with 2 L. He has no hemoptysis. Patient meets criteria for admission for heparin drip with bolus and further management of acute pulmonary emboli with saddle embolus noted. Acute LLE DVT likely causing pulmonary embolism Acute saddle emboli/bilateral pulmonary emboli IVC filter placed on 11/17/17, no complications, tolerated well stop heparin drip, convert to Xarelto 15mg BID remove bedrest restriction can likely go home tomorrow if he is ambulating well enough troponin trending down, due to PE Elevated troponin likely demand ischemia (type 2 Myocardial infarction) * Bump in troponin most likely secondary to saddle embolus and bilateral pulmonary emboli * trending down peaked at .8 * Patient denies any chest pain. * keep tele tonight, if no d/c home tomorrow then transfer to medical floor Parkinson's disease * stop bedrest, can be OOB as tolerated since the IVC filter was placed * Continue home doses of carbidopa/levodopa (Sinemet) as well as Cogentin * PT/OT ordered Right heart failure: Shown by echocardiogram. will monitor I's and O's, patient euvolemic, breathing well, no JVD was due to acute PE, should improve as thrombus dissolves Dyspnea with Hypoxia likely due to large PE and saddle PE try to wean oxygen as tolerated, may require two step tomorrow
[2017-11-17] MEDS: RIVAROXABAN TAB 15 MG TAB PO SCH (18:27)
[2017-11-17] MEDS: CEFTRIAXONE SOD INJ 1 GM in DEXTROSE 5% ADD-VANTAGE 50ML 50 ML IV SCH (21:18)
[2017-11-17] MEDS: ROPINIROLE HCL 1 MG TAB PO SCH (21:30)
[2017-11-17] MEDS: TAMSULOSIN HCL 0.4 MG CAP PO SCH (21:32)
[2017-11-18] VITALS (9 sets, daily range): BP systolic 96–137; BP diastolic 62–80; PULSE 62–84; TEMP 36.2–37.1; O2SAT 91–94
[2017-11-18] MEDS: ROPINIROLE HCL 1 MG TAB PO SCH ×3 (00:22→23:42)
[2017-11-18] MEDS: CARBIDOPA/LEVODOPA 50/200MG EXT REL TAB PO SCH ×2 (00:23→23:42)
[2017-11-18 06:33] LABS: PTT PATIENT 36.5 SECONDS (21.0-31.0)
[2017-11-18] MEDS: CHOLECALCIFEROL 1000 INTER.UNIT TAB PO SCH (08:25)
[2017-11-18] MEDS: ASCORBIC ACID 500 MG TAB PO SCH (08:26)
[2017-11-18] MEDS: CYANOCOBALAMIN 500 MCG TAB (VIT B-12) PO SCH (08:26)
[2017-11-18] MEDS: CARBIDOPA/LEVODOPA 25/100MG TAB PO SCH ×5 (08:26→21:21)
[2017-11-18] MEDS: TOCOPHERYL, DL-ALPHA 400 INTER.UNIT CAP PO SCH (08:26)
[2017-11-18] MEDS: BENZTROPINE MESYLATE 0.5 MG TAB PO SCH (08:26)
[2017-11-18] MEDS: RIVAROXABAN TAB 15 MG TAB PO SCH ×2 (08:27→16:50)
--- NOTE | 2017-11-18 14:44 | Progress Note ---
Subjective Date of Service: Nov 18, 2017. Subjective Pt evaluation today including: conversation w/ patient, conversation w/ family (), physical exam, lab review, review of inpatient medication list Pain: no pain PO Intake: adequate Voiding: oneal catheter in place patient feeling well, breathing comfortably no pain anywhere reviewed urine culture, E coli with sensitivities PT/OT evaluated patient, he would benefit from rehab per RN, he is max 2 assist to get OOB and into chair discussed with over the phone, he struggles to get around house, recent decline he fell three times in the week leading up to admission she would like a referral to rehab Problem List Medical Problems: (1) Anemia Status: Chronic (2) Elevated troponin Status: Acute (3) Fall Status: Acute (4) Fall at home Status: Acute (5) Falling Status: Acute (6) Hypoxia Status: Acute (7) Nondisplaced fracture of greater trochanter of right femur Status: Acute (8) [place]'s syndrome Status: Chronic (9) Parkinson disease Status: Chronic (10) Parkinsons disease Status: Chronic (11) Pulmonary emboli Status: Acute (12) Scalp laceration Status: Acute (13) SOB (shortness of breath) Status: Acute (14) Weakness Status: Acute Review of Systems Constitutional: + weakness, + fatigue Male : + incontinence Neurologic: + weakness, + balance problems, + problem reported (tremors, Parkinsonian) All Other Systems: Reviewed and Negative Medications Current Inpatient Medications Medications (Trade) Dose Ordered Sig/Mary Route Start Time Stop Time Status Last Admin Dose Admin Acetaminophen (Tylenol Tab) 650 mg Q4H PRN PO 11/12/17 14:00 12/12/17 13:59 Al Hydrox/Mg Hydrox/Simethicone (Maalox Max Susp) 15 ml Q4H PRN PO 11/12/17 14:00 12/12/17 13:59 Magnesium Hydroxide (Milk Of Magnesia Susp) 30 ml Q12H PRN PO 11/12/17 14:00 12/12/17 13:59 Ondansetron HCl (Zofran Inj) 4 mg Q6H PRN IV 11/12/17 14:00 12/12/17 13:59 Polyethylene (Miralax Powder Packet) 17 gm DAILY PRN PO 11/12/17 14:00 12/12/17 13:59 Benztropine Mesylate (Cogentin Tab) 0.5 mg QAM PO 11/13/17 09:00 12/13/17 08:59 11/18/17 08:26 0.5 MG Carbidopa/Levodopa (Sinemet 25/ 100MG Tab) 1.5 tab DAILY@0900,1200,1500,1800,2100 PO 11/12/17 18:00 12/12/17 17:59 11/18/17 11:52 1.5 TAB Carbidopa/Levodopa (Sinemet Cr 50/ 200MG Tab) 1 tab DAILY@0000 PO 11/13/17 00:00 12/13/17 00:00 11/18/17 00:23 1 TAB Cyanocobalamin (Vitamin B-12 Tab) 1,000 mcg QAM PO 11/13/17 09:00 12/13/17 08:59 11/18/17 08:26 1,000 MCG Ropinirole HCl (Requip Tab) 0.5 mg DAILY@0000,2200 PO 11/12/17 22:00 12/12/17 21:59 11/18/17 00:22 0.5 MG Tamsulosin HCl (Flomax Cap) 0.4 mg HS PO 11/12/17 21:00 12/12/17 20:59 11/17/17 21:32 0.4 MG as-Supnt-Efbfbamrwg Acetate (Vitamin E Cap) 400 interunit QAM PO 11/13/17 09:00 12/13/17 08:59 11/18/17 08:26 400 INTERUNIT Ascorbic Acid (Vitamin C Tab) 1,000 mg QAM PO 11/13/17 09:00 12/13/17 08:59 11/18/17 08:26 1,000 MG Cholecalciferol (Vitamin D Tab) 2,000 inter.unit QAM PO 11/13/17 09:00 12/13/17 08:59 11/18/17 08:25 2,000 INTER.UNIT Miscellaneous Information (Order Awaiting Action) 1 ea QS N/A 11/12/17 16:00 12/12/17 15:59 Rivaroxaban (Xarelto Tab) 15 mg BIDM PO 11/17/17 17:00 12/17/17 16:59 11/18/17 08:27 15 MG Cephalexin Monohydrate (Keflex Cap) 500 mg BID PO 11/18/17 21:00 11/28/17 20:59 Objective Vital Signs Date Time Temp Pulse Resp B/P (MAP) Pulse Ox O2 Delivery O2 Flow Rate FiO2 11/18/17 12:18 36.2 64 18 99/62 (74) 93 Room Air 11/18/17 08:10 91 Nasal Cannula 2.0 11/18/17 07:07 37.0 63 18 119/74 (89) 94 2.0 11/18/17 04:29 37.1 68 18 105/63 (77) 92 2.0 11/17/17 23:10 37.5 78 22 137/78 (97) 94 Room Air 11/17/17 20:00 Nasal Cannula 2.0 11/17/17 19:45 37.4 65 18 146/75 (98) 96 Room Air 11/17/17 15:15 36.9 64 18 118/69 (85) 94 Nasal Cannula 2.0 Physical Exam General Appearance: WD/WN, no apparent distress Eyes: normal inspection, EOMI, sclerae normal ENT: normal ENT inspection, hearing grossly normal, pharynx normal Neck: supple, no adenopathy, no JVD, trachea midline Respiratory/Chest: chest non-tender, lungs clear, normal breath sounds, no respiratory distress, no accessory muscle use Cardiovascular: regular rate, rhythm, no edema, no gallop, no JVD, no murmur Abdomen: normal bowel sounds, non tender, soft, no organomegaly Extremities: normal inspection, no pedal edema, no calf tenderness, normal capillary refill, pelvis stable Neurologic/Psychiatric: supervisor mapping II-XII nml as tested, + abnormal gait, + motor weakness, + depressed affect, + pertinent finding (resting tremors) Skin: normal color, warm/dry, no rash Lymphatic: no adenopathy Laboratory Results Last 24 Hours Test 11/18/17 05:40 Activated Partial Thromboplast Time 36.5 SECONDS Partial Thromboplastin Ratio 1.4 Assessment and Plan 72-year-old male with progressive Parkinson's disease that presents with shortness of breath. He had 2 falls yesterday with no injury. He was found to have an elevated troponin of 0.83 with EKG findings suggested of right heart strain with S1Q3T3 pattern. CTA of the chest revealed a saddle embolus of the pulmonary artery as well as bulky bilateral pulmonary emboli. Patient is oxygenating well with 2 L. He has no hemoptysis. Patient meets criteria for admission for heparin drip with bolus and further management of acute pulmonary emboli with saddle embolus noted. Acute LLE DVT, Acute saddle emboli/bilateral pulmonary emboli IVC filter placed on 11/17/17, no complications, tolerated well Xarelto 15mg BID x 3 weeks then 20mg daily initially treated with heparin drip inpatient Elevated troponin likely demand ischemia (type 2 Myocardial infarction) * Bump in troponin most likely secondary to saddle embolus and bilateral pulmonary emboli * trending down peaked at .8 * Patient denies any chest pain. * transfer to medical floor Parkinson's disease * stop bedrest, can be OOB as tolerated since the IVC filter was placed * Continue home doses of carbidopa/levodopa (Sinemet) as well as Cogentin * PT/OT ordered - rehab recommended, will make referral Right heart failure: Shown by echocardiogram. will monitor I's and O's, patient euvolemic, breathing well, no JVD was due to acute PE, should improve as thrombus dissolves Dyspnea with Hypoxia likely due to large PE and saddle PE try to wean oxygen as tolerated, may require two step tomorrow UTI: E coli, has incontinence at baseline treated with Rocephin initially, will change to Keflex complete 10 day course Plan: referral to rehab, he is medically stable currently
[2017-11-18] MEDS: TAMSULOSIN HCL 0.4 MG CAP PO SCH (21:20)
[2017-11-18] MEDS: CEPHALEXIN MONOHYDRATE 500 MG CAP PO SCH (21:21)
[2017-11-19 06:10] LABS: HEMATOCRIT 40.2 % (42-52); HEMOGLOBIN 13.6 g/dL (14.0-18.0); MEAN CORPUSCULAR HEMOGLOBIN 31.1 pg (25-34); MEAN CORPUSCULAR HGB CONC 33.8 g/dl (32-36); MEAN PLATELET VOLUME 11.2 fL (7.4-10.4); PLATELET COUNT 180 K/uL (130-400); RED CELL DISTRIBUTION WIDTH CV 13.9 % (11.5-14.5); RED CELL DISTRIBUTION WIDTH SD 45.7 fL (36.4-46.3); WHITE BLOOD COUNT 8.47 K/uL (4.8-10.8)
[2017-11-19 06:43] LABS: PTT PATIENT 32.4 SECONDS (21.0-31.0)
[2017-11-19 07:35] VITALS: BP 109/66; PULSE 59; TEMP 36.9; O2SAT 92
[2017-11-19 08:00] VITALS: O2SAT 92
[2017-11-19] MEDS: CARBIDOPA/LEVODOPA 25/100MG TAB PO SCH ×3 (08:53→15:37)
[2017-11-19] MEDS: CYANOCOBALAMIN 500 MCG TAB (VIT B-12) PO SCH (08:54)
[2017-11-19] MEDS: RIVAROXABAN TAB 15 MG TAB PO SCH ×2 (08:54→16:52)
[2017-11-19] MEDS: CEPHALEXIN MONOHYDRATE 500 MG CAP PO SCH (08:55)
[2017-11-19] MEDS: BENZTROPINE MESYLATE 0.5 MG TAB PO SCH (08:55)
[2017-11-19] MEDS: CHOLECALCIFEROL 1000 INTER.UNIT TAB PO SCH (08:55)
[2017-11-19] MEDS: TOCOPHERYL, DL-ALPHA 400 INTER.UNIT CAP PO SCH (08:55)
[2017-11-19] MEDS: ASCORBIC ACID 500 MG TAB PO SCH (08:55)
[2017-11-19 14:41] VITALS: BP 109/67; PULSE 66; TEMP 36.5; O2SAT 91
[2017-11-19] MEDS ORDERED: XRL15 PO (14:58)
[2017-11-19] MEDS ORDERED: XRL20 PO (14:58)
[2017-11-19] MEDS ORDERED: KFL500 PO (14:58)
--- NOTE | 2017-11-19 15:04 | Discharge Instructions ---
Discharge Instructions Date of Service Nov 19, 2017. Admission Reason for Admission: Bilateral Pulmonary Embolism, Saddle Embolus Discharge Discharge Diagnosis / Problem: Bilateral PE, saddle embolism, left leg DVT, E coli UTI Discharge Goals Goal(s): Improve function, Increase independence Activity Recommendations Activity Level: OOB In Chair, Assistance Required Therapies: Physical Therapy, Occupational Therapy Lifting Limitations: none Exercise/Sports Limitations: none Shower/Bathe: no limitations . Additional Information Patient informed of condition: Yes Advance Directives: Yes DNR: No Level of Care: Acute Rehab Communicable Disease: No Prognosis: Improving Oxygen at (LPM): no Phipps Catheter: No Instructions / Follow-Up Instructions / Follow-Up Medications: - XARELTO: 15mg twice a day for 20 days, then start 20mg daily - KEFLEX: take twice a day for 13 more doses, next dose this evening, for E coli UTI Acute bilateral PE, saddle embolism, left leg DVT s/p IVC filter placement due to large left leg DVT and saddle embolism, tolerated well, placed on 11/17 treated initially with heparin drip, changed to Xarelto after IVC filter placed continue Xarelto 15mg BID for 20 more days, change to 20mg daily after that no hypoxia, no chest pain E coli UTI: sensitive to cephalosporins treated with Rocephin initially, changed to Keflex complete 6 more days for 10 days total treatment has some urinary incontinence at baseline Parkinsons disease weaker than baseline, has fallen 3 times in week prior to admission recommend rehab FOLLOW UP - physician at [facility] this week - PCP one week after discharge from rehab Current Hospital Diet Patient's current hospital diet: AHA Diet (Heart Healthy) Discharge Diet Recommended Diet: AHA Diet (Heart Healthy) Procedures Procedures Performed: Insertion of Vena Cava Filter, Right Jugular Approach, Ultrasound Localization of Right Internal Jugular Vein, Fluoroscopy for Positioning. Pending Studies Studies pending at discharge: no Physician Orders On Transfer POLST Discussion: Not Applicable Medical Emergencies . Who to Call and When: Medical Emergencies: If at any time you feel your situation is an emergency, please call 911 immediately. . Non-Emergent Contact Non-Emergency issues call your: Primary Care Provider Call Non-Emergent contact if: you have any medication questions . . "Provider Documentation" section prepared by Matheus Monroy. . Core Measure Problem Core Measures: VTE VTE Core Measures Date of VTE Diagnosis: Nov 12, 2017 Time of VTE Diagnosis: 12:02 Reason no anticoag overlap I/P: Treatment not indicated (Xarelto) Reason no anticoag overlap @DC: Treatment not indicated (Xarelto) [place] Drug Monitoring Program Search Results: no issues identified
[2017-11-19 15:44] VITALS: BP 109/67; PULSE 66; TEMP 36.5; O2SAT 91
--- NOTE | 2017-11-24 11:34 | Discharge Summary ---
Discharge Summary Date of Service Nov 19, 2017. Discharge Summary Admission Date: Nov 12, 2017 at 14:04 Discharge Date: Nov 19, 2017 Discharge Disposition: Rehab Principal Diagnosis: Bilateral PE, saddle embolism Problems/Secondary Diagnoses: Left leg DVT s/p IVC filter placement E coli UTI Advanced Parkinson's disease Falls at home Immunizations: Have You Had Influenza Vaccine: Yes Influenza Vaccine Date: Jan 20, 2013 History of Tetanus Vaccine?: utd Tetanus Immunization Date: Nov 04, 2008 History of Pneumococcal: No Pneumococcal Date: Nov 07, 2012 History of Hepatitis B Vaccine: No Procedures: IVC filter placement by Dr. Peoples Consultations: Vascular surgery Medication Reconciliation New Medications: Rivaroxaban (Xarelto) 20 Mg Tab 20 MG PO DAILY for 30 Days, #30 TABS 3 Refills Cephalexin Monohydrate (Cephalexin) 500 Mg Cap 500 MG PO BID, #13 CAP 0 Refills Rivaroxaban (Xarelto) 15 Mg Tab 15 MG PO BIDM, #40 TAB 0 Refills Continued Medications: Ascorbic Acid (Vitamin C) 1,000 Mg Tab 1000 MG PO QAM Benztropine Mesylate (Benztropine Mesylate) 0.5 Mg Tab 0.5 MG PO QAM Carbidopa/Levodopa (Sinemet Cr 50MG/200MG) Tabcr 1 TAB PO midnight Carbidopa/Levodopa (Sinemet 25MG/100MG) Tab 1.5 TAB PO 5XD Cholecalciferol (Vitamin D3) 2,000 Unit Tab 2000 UNITS PO QAM Cyanocobalamin (Vitamin B12 500MCG) 500 Mcg Tab 1000 MCG PO QAM Dutasteride (Avodart) 0.5 Mg Cap 0.5 MG PO NOON Loperamide Hcl (Imodium) 2 Mg Cap 2 MG PO DAILY PRN for Diarrhea Probiotic Product (Probiotic) 1 Tab Tab 1 TAB PO QAM Ropinirole (Requip) 0.5 Mg Tab 0.5 MG PO UD TAKES 2200 AND 0000 Tamsulosin Hcl (Flomax) 0.4 Mg Cap 0.4 MG PO HS Vitamin E (E-400) 400 Unit Cap 400 UNITS PO QAM Discharge Exam Patient feeling better on the day of discharge, breathing easier, no chest pain. Eating well. Discussed importance of going to rehab, he was reluctant to the idea at first. Discussed that with new diagnosis of bilateral PE and DVT he should be seen closely by a physician. Now that he is on anticoagulation , he is high risk for bleeding if he falls. Given the fact that he had been falling at home, 3 times in the week leading up to admission, strongly recommended rehab to improve strength and balance, thus reducing fall risk and risk of bleeding. He agreed with recommendations. Review of Systems: Constitutional: + weakness, + fatigue, No fever, No chills, No sweats, No weight loss, No problem reported Eyes: No worsening of vision, No eye pain, No redness, No discharge, No diplopia, No problem reported ENT: No hearing loss, No unusual epistaxis, No nasal symptoms, No sore throat, No tinnitus, No dental problems, No trouble swallowing, No problem reported Respiratory: + dyspnea on exertion, No cough, No sputum, No wheezing, No shortness of breath, No dyspnea at rest, No hemoptysis, No problem reported Cardiovascular: No chest pain, No orthopnea, No PND, No edema, No claudication, No palpitations, No problem reported Abdomen: No pain, No nausea, No vomiting, No diarrhea, No constipation, No GI bleeding, No problem reported Musculoskeletal: No joint pain, No muscle pain, No swelling, No calf pain, No problem reported Genitourinary - Male: No hematuria, No dysuria, No urinary frequency, No urinary urgency Neurologic: + weakness, + balance problems, No memory loss, No paralysis, No numbness/tingling, No vertigo, No problem reported Psychiatric: No depression symptoms, No anhedonism, No anxiety, No insomnia , No substance abuse, No problem reported Endocrine: No fatigue, No excessive thirst, No excessive urination, No problem reported Hematologic / Lymphatic: No abnormal bleeding/bruising, No clotting problems , No swollen lymph nodes, No night sweats, No problem reported Integumentary: No rash, No itch, No new/changing skin lesions, No color change, No bleeding, No problem reported Physical Exam: General Appearance: WD/WN, no apparent distress Eyes: normal inspection, EOMI, sclerae normal ENT: normal ENT inspection, hearing grossly normal, pharynx normal Neck: supple, no adenopathy, no JVD, trachea midline Respiratory/Chest: chest non-tender, lungs clear, normal breath sounds, no respiratory distress, no accessory muscle use Cardiovascular: regular rate, rhythm, no edema, no gallop, no JVD, no murmur , normal peripheral pulses Abdomen / GI: normal bowel sounds, non tender, soft, no organomegaly Extremities: normal inspection, no calf tenderness, normal capillary refill , no pedal edema, normal range of motion, pelvis stable Neurologic/Psychiatric: lens inspector II-XII nml as tested, alert, normal mood/affect , normal reflexes, oriented x 3, + motor weakness (generalized), + pertinent finding (resting tremor) Skin: normal color, warm/dry, no rash Hospital Course 72-year-old male with progressive Parkinson's disease that presents with shortness of breath. He had 2 falls yesterday with no injury. He was found to have an elevated troponin of 0.83 with EKG findings suggested of right heart strain with S1Q3T3 pattern. CTA of the chest revealed a saddle embolus of the pulmonary artery as well as bulky bilateral pulmonary emboli. Patient is oxygenating well with 2 L. He has no hemoptysis. Patient meets criteria for admission for heparin drip with bolus and further management of acute pulmonary emboli with saddle embolus noted. Acute LLE DVT, Acute saddle emboli/bilateral pulmonary emboli IVC filter placed on 11/17/17, no complications, tolerated well Xarelto 15mg BID x 3 weeks then 20mg daily initially treated with heparin drip inpatient will d/c to rehab, continue Xarelto vitals stable, no hypoxia, no chest pain Elevated troponin likely demand ischemia (type 2 Myocardial infarction) * Bump in troponin most likely secondary to saddle embolus and bilateral pulmonary emboli * trending down peaked at .8 * Patient denies any chest pain. * transfer to medical floor Parkinson's disease * stop bedrest, can be OOB as tolerated since the IVC filter was placed * Continue home doses of carbidopa/levodopa (Sinemet) as well as Cogentin * PT/OT ordered - rehab recommended * patient agrees to rehab since he was falling, now higher risk for bleeding with fall since he is on Xarelto Right heart failure: Shown by echocardiogram. will monitor I's and O's, patient euvolemic, breathing well, no JVD was due to acute PE, should improve as thrombus dissolves Dyspnea with Hypoxia likely due to large PE and saddle PE weaned off of oxygen UTI: E coli, has incontinence at baseline treated with Rocephin initially, will change to Keflex complete 10 day course Plan: referral to rehab, accepted to [facility] Total Time Spent: Greater than 30 minutes This includes examination of the patient, discharge planning, medication reconciliation, and communication with other providers. Discharge Instructions Please refer to the electronic Patient Visit Report (Discharge Instructions) for additional information. Follow-Up physician at [place] PCP one week after discharge from rehab Additional Copies To Fili Early M.D.; [facility]
== END 2017-11-19 17:14 | DRG 166 ==
LOC: EDBD 09:46 → C.EDC 09:47 → C.MED 14:04 → ENRESERV 14:24
PROVIDERS: ADMIT Internal Medicine Sports Medicine; ATTEND Internal Medicine
PROC: 06H03DZ Insertion of Intraluminal Device into Inferior Vena Cava, Percutaneous Approach (ICD-10-PCS; principal; 2017-11-17 10:30)
DX: I26.92 Saddle embolus of pulmonary artery without acute cor pulmonale (principal); I21.A1 Myocardial infarction type 2; I82.432 Acute embolism and thrombosis of left popliteal vein; N39.0 Urinary tract infection, site not specified; I26.99 Other pulmonary embolism without acute cor pulmonale; B96.20 Unspecified Escherichia coli [E. coli] as the cause of diseases classified elsewhere; I50.810 Right heart failure, unspecified; G20 Parkinson's disease; R29.6 Repeated falls; Z66 Do not resuscitate; Z87.440 Personal history of urinary (tract) infections; Z79.899 Other long term (current) drug therapy; Z88.5 Allergy status to narcotic agent

== ENCOUNTER → 2017-12-01 | Outpatient (CLI) | payer BC ==
[~2017-12-01] MED LIST changes: -COEN75CA PO; -FERR1TAB23 PO; +KFL500 PO; -LACT1TAB4 PO; +PROB1TAB16 PO; +XRL15 PO; +XRL20 PO
--- NOTE | 2017-12-01 13:38 | DIAGNOSTIC IMAGING REPORT ---
VIDEO SWALLOW HISTORY: Parkinson's. Suspected aspiration. TECHNIQUE: Video fluoroscopic evaluation of swallowing was performed in the AP and lateral projections by the speech pathology staff. The patient is fed nectar-thick and thin liquid barium, a barium coated wafer, and barium pudding. FLUOROSCOPY TIME: 2.3 minutes. NUMBER OF FLUOROSCOPY IMAGES: 0 COMPARISON STUDY: None. FINDINGS: With swallowing thin liquids via teaspoon there was no aspiration or penetration. When swallowing thin liquids via cup, there was penetration and aspiration when performing a large swallow. There is no aspiration or penetration when swallowing nectar thick liquids. When swallowing pudding and a cracker with paste, swallowing mechanics were within normal limits. IMPRESSION: 1. Penetration and trace aspiration when swallowing thin liquids via cup 2. Please see the speech pathologist report for detailed findings and recommendations. Electronically signed by: Gregorio Henriquez M.D. 12/01/2017 1:37 PM Dictated Date/Time: 12/01/2017 1:27 PM
--- NOTE | 2017-12-01 14:04 | SWALLOWING EVALUATION ---
HISTORY: This 72 year-old woman, from [facility], who was referred for a VFSS at [facility]. He has a PMH significant for Parkinson's Disease, Bussey's syndrome, falls, anemia, DJD. Currently the patient reports his diet level is regular with nectar thick liquids. PROCEDURE: The patient was seen in the Radiology Department of [facility] for the VFSS. Cursory examination of the oral cavity revealed adequate dentition. Movement of the articulators was reduced for strength, ROM, and rate. He presented with tremor. The patient was seated in a wheel chair and was viewed in both the Anterior-Posterior (A-P) and Lateral planes. Volitional phonation exercises completed in the A-P plane revealed bilateral vocal fold movement however limited adduction and vocal intensity was significantly reduced making all verbal communication very difficult to hear. In the lateral plane, the patient was given the following barium-infused boluses: 1 tsp thin barium with oral hold 1x, self presented single cup swallow-thin barium 4x, self presented serial cup swallow 1x. 1 tsp nectar thick barium with oral hold 1x, self presented single cup swallow- nectar thick barium 1x, self presented serial cup swallows 1x. 1 tsp barium pudding-self presented 1x. 1/2 Cracker with barium paste. In the A-P view, pt was given 1 tsp barium pudding with esophageal scan. RESULTS: Oral Phase:Pt. had decreased lip closure and mild labial escape of liquid from cup leaked to mid chin 1x. Pt. had slightly decreased tongue control however managed a adequate bolus hold by demonstrating a cohesive bolus between tongue and palatal seal. Bolus preparation and mastication time was increased however efficient chewing and mashing was observed with all consistencies. Bolus transport and lingual motion were functional however pt. demonstrated labored tongue motion. Mild to no oral residue noted after swallow. Initiation of pharyngeal swallow began with bolus head in the pyriforms. * Overall mild oral stage dysphagia characterized by the above. Pharyngeal Phase:Soft Palate Elevation was complete for all boluses and no bolus was between the soft palate and the pharyngeal wall. Laryngeal elevation was signifcaintly reduced incomplete superior movement of the thyroid cartilage with incomplete approximation of arytenoids to epiglottic base. Anterior Hyoid excursion was very limited with minimal anterior movement. Complete epiglottic inversion was noted. Laryngeal Vestibular closure was mostly complete and a mild residue of barium was noted in laryngeal vestibule inconsistently throughout the study. Pharyngeal stripping wave was diminished and incomplete. Pharyngeal contraction was reduced for all tested items. Pharyngoesophageal segment opening was also reduced minimal distension and mild obstruction of flow. Tongue base retraction was noted with all consistencies and tongue base made effective contact with posterior pharyngeal wall throughout study. There was mild-moderate Pharyngeal residue resulting in incomplete pharyngeal clearance of all tested items. *Overall mild-moderate pharyngeal stage dysphagia. * Pt. had penetration and SILENT aspiration of thins 1x, no other penetration or aspiration was observed. *Delayed swallow initiation with decreased pharyngeal constriction, limited hyoid movement, and decreased airway protection. Esophageal Phase:Opening and closing of the UES was timely and efficient with complete clearance of all tested items. SUMMARY/RECOMMENDATIONS: Overall pt. presents with Mild oral dysphagia and moderate pharyngeal dysphagia. SILENT aspiration and penetration occurred on thin liquids 1x throughout this study. At this time a discussion needs to be held with the pt. and family to determine the pt's wishes in regards to diet recommendations. Although the pt. only aspirated 1x throughout the entire study the aspiration was SLIENT. The fact that he has a degenerative disease that will continue to cause deconditioning and reduced movement will eventually result in continued decline of motor and muscle function therefore increasing the likelihood of more consistent SILENT aspiration. Recommending: IF CHOOSING LEAST RESTRICTIVE DEIT (CHOOSING TO ASSUME THE RISKS OF POSSIBLE ASPIRATION) 1. Regular diet with thin liquids IF CHOOSING SAFEST DIET 1. Regular diet with NECTAR thick liquids ~Aspiration precautions - NO STRAWS, upright for all intake, awake and alert for all intake ~ Safe swallow strategies - small bites, small sips, SLOW rate ~ Oral Hygiene - clean all areas of mouth (tongue, cheeks, roof of mouth) 1st thing in the morning, before any intake, and before bed to decrease the risk of aspiration of oral bacteria. All results and recommendations were discussed with the pt. Thank you for referral of this patient. Please contact me at if any additional information is needed.
== END | disposition home or self-care (01) ==
LOC: C.RAD 12:32
PROVIDERS: ATTEND Internal Medicine Hospice and Palliative Medicine
DX: G20 Parkinson's disease (principal)

== ENCOUNTER 2018-05-28 10:46 | Inpatient (IN) ==
[2018-05-28] MEDS ORDERED: FIDAXOMICIN 200 MG TAB PO STA (11:26)
[2018-05-28] MEDS ORDERED: SODIUM CHLORIDE 0.9% 1000ML 1,000 ML IV SCH (11:30)
[2018-05-28 11:42] LABS: Basophils # (auto) 0.03 K/uL (0-0.2); Basophils % (auto) 0.4 %; Eosinophils # (auto) 0.03 K/uL (0-0.5); Eosinophils % (auto) 0.4 %; Hematocrit (blood only) 43.4 % (42-52); Hemoglobin 14.6 g/dL (14.0-18.0); Immature Granulocytes # (auto) 0.02 K/uL (0.00-0.02); Immature Granulocytes % (auto) 0.3 %; Lymphocytes # (auto) 0.89 K/uL (1.2-3.4); Lymphocytes % (auto) 11.3 %; Mean Corpuscular Hgb Conc 33.6 g/dL (32-36); Mean Corpuscular Volume 92.1 fL (80-100); Mean Platelet Volume 11.3 fL (7.4-10.4); Monocytes # (auto) 1.41 K/uL (0.11-0.59); Monocytes % (auto) 17.8 %; Neutrophils # (auto) 5.53 K/uL (1.4-6.5); Neutrophils % (auto) 69.8 %; Platelet Count 241 K/uL (130-400); RDW Coefficient of Variation 13.9 % (11.5-14.5); RDW Standard Deviation 47.1 fL (36.4-46.3); Red Blood Count 4.71 M/uL (4.7-6.1); White Blood Count 7.91 K/uL (4.8-10.8)
[2018-05-28 11:50] LABS: INR 1.4 (0.9-1.1); Partial Thromboplastin Ratio 1.5; Partial Thromboplastin Time 40.1 Seconds (21.0-31.0)
[2018-05-28 11:56] LABS: Alanine Aminotransferase 8 U/L (12-78); Albumin Level 2.6 gm/dl (3.4-5.0); Aspartate Aminotransferase 12 U/L (15-37); BUN Creatinine Ratio 20.7 (10-20); Blood Urea Nitrogen 17 mg/dl (7-18); Calcium 8.3 mg/dl (8.5-10.1); Carbon Dioxide 30 mmol/L (21-32); Chloride 105 mmol/L (98-107); Creatinine Clr Calc Pharmacy 90.7 ml/min; Est GFR (African American) 101.2; Est GFR (Non-African American) 87.3; Glucose 87 mg/dl (70-99); Potassium 3.5 mmol/L (3.5-5.1); Sodium 140 mmol/L (136-145)
[2018-05-28 12:07] LABS: Albumin Globulin Ratio 0.5 (0.9-2); Alkaline Phosphatase 80 U/L (45-117); Bilirubin,Total 0.8 mg/dl (0.2-1); Globulin 4.9 gm/dl (2.5-4.0); Total Protein 7.5 gm/dl (6.4-8.2); Troponin I < 0.015 ng/ml (0-0.045)
--- NOTE | 2018-05-28 12:21 | XRay Report ---
XR chest 1V portable CLINICAL HISTORY: weakness dyspnea COMPARISON STUDY: 04/26/2018 FINDINGS: The bones soft tissues and hemidiaphragms are normal. The cardiomediastinal silhouette is n ormal. The lungs are clear. The pulmonary vasculature is normal. IMPRESSION: Negative chest. The above report was generated using voice recognition software. It may contain grammatical, syntax or spelling errors. Electronically signed by: Nicholas Johnson M.D. 05/28/2018 12:20 PM
--- NOTE | 2018-05-28 13:11 | History & Physical Report ---
Date of Service May 28, 2018 Assessment & Plan (1) C. difficile diarrhea: 72 y/o M Hx Parkinson's disease, DVT/PE, BPH. The pt has had diarrhea for a 2 month period following an episode of C diff. This recently worsened and recurrence was confirmed by his primary MD 05/25. He is having persistent profuse diarrhea and has become dehydrated as a result. He does not report abdominal pain or fevers. The pt is unable to adequately care for himself under the circumstances and may need placement upon DC. He was slightly hypotensive on arrival to the ER but has responded to IVF. Labs do not show lactic acidosis or leukocytosis. 1) C -diff - diarrhea/dehydration. IVF provided. He had already been on oral Vanc so that we will place him on BID Fidaxomycin. 2) PArkinson's - cont Sinemet, Ropinirole 3) History of saddle PE - cont Xarelto 4) BPH - cont Flomax, Dutasteride The pt's family would like him placed at [facility] following this admission - placement process is already in progress Full code - Xarelto prophylaxis Total time for this admit including review of labs, meds, imaging, records - discussion with pt, daughter and ER attending - 40 min Present on Admission?: Yes History of Present Illness Chief Complaint: Recurrence of C diff, dehydration Primary Care Provider: Fili Early MD 72 y/o M Hx Parkinson's disease, DVT/PE, BPH. The pt has had diarrhea for a 2 month period following an episode of C diff. This recently worsened and recurrence was confirmed by his primary MD 05/25. He is having persistent profuse diarrhea and has become dehydrated as a result. He does not report abdominal pain or fevers. The pt is unable to adequately care for himself under the circumstances and may need placement upon DC. He was slightly hypotensive on arrival to the ER but has responded to IVF. Labs do not show lactic acidosis or leukocytosis. PMH: 1) Parkinson's disease 2) BPH 3) Saddle PE 11/2017 4) C diff 5) Femoral fracture Surgical: 1) Appendectomy 2) DEVIN Social: Does not drink or smoke Family: Noncontributory to current complaint Allergies Allergy/AdvReac Type Severity Reaction Status Date / Time hydromorphone Allergy Unknown hives on Verified 05/28/18 12:35 trunk pollen extracts Allergy Unknown SNEEZING,RUNNY Verified 05/28/18 12:35 NOSE mite-Dermatophagoides AdvReac Intermediate Sneeze, Verified 05/28/18 12:35 farinae, ying cough Poison Nguyen Extract/Poison Allergy Severe rash, itchy Uncoded 05/28/18 12:35 [place] Extra Home Medications Home Medications Medication Instructions Recorded Confirmed Type benztropine 0.5 mg PO BID 02/05/18 05/28/18 History carbidopa-levodopa 2 tab PO Q3H 02/05/18 05/28/18 History rivaroxaban [Xarelto] 20 mg PO HS 02/05/18 05/28/18 History ropinirole 1 mg PO HS 02/05/18 05/28/18 History tamsulosin 0.4 mg PO HS 02/05/18 05/28/18 History carbidopa-levodopa 1 tab PO HS 03/26/18 05/28/18 History dutasteride 0.5 mg PO QAM 03/26/18 05/28/18 History pimavanserin [Nuplazid] 34 mg PO QAM 04/26/18 05/28/18 History ascorbic acid (vitamin C) [Vitamin 1,000 mg PO QAM 05/17/18 05/28/18 History C] cholecalciferol (vitamin D3) 2,000 unit PO QAM 05/17/18 05/28/18 History [Vitamin D3] cyanocobalamin (vitamin B-12) 1,000 mcg PO QAM 05/17/18 05/28/18 History [Vitamin B-12] vitamin E 400 unit PO QAM 05/17/18 05/28/18 History sulfamethoxazole-trimethoprim 1 tab PO BID 05/28/18 05/28/18 History vancomycin 125 mg PO QID 05/28/18 05/28/18 History Past Med/Surg History Medical History Hernia, abdominal C. difficile colitis Parkinson disease (Chronic) DJD (degenerative joint disease) of hip (Resolved 12/28/13) Adynamic ileus (Resolved) Volvulus (Resolved) Leukocytosis (Resolved) UTI (urinary tract infection) (Resolved) Abdomen enlarged Bilateral pulmonary embolism Right knee DJD Family History Other No pertinent family history Social History marital status: Current Living Situation: Spouse current occupational status: retired Feels Safe at Home: Yes Smoking Status: Never smoker Preferred Language: Korean Communication Ability: Impaired Review of Systems Gen: Denies fevers, night sweats - reports fatigue/malaise/weakness ENT: Denies congestion, throat pain, hearing loss Eyes: Denies acute visual changes CV: Denies CP, palpitations Pulmonary: Denies SOB, cough, wheezing GI: Profuse diarrhea has been present intermittently for 2 months Neuro: Advanced Parkinson,s has affected gait, speech, coordination Musculoskeletal: Denies joint pain, inflammation Endocrine: Denies polydipsia, polyuria Skin: Denies acute rashes or ulcers Physical Exam 2 Vital Signs (Past 24 Hours): Last Vital Signs Temp 36.6 C 05/28/18 10:47 Pulse 86 05/28/18 12:21 Resp 25 H 05/28/18 12:21 BP 137/82 05/28/18 12:21 Pulse Ox 87 L 05/28/18 12:30 Physical Exam: General: AAO x 3 - difficulty with speech ENT: No erythema or exudates, no thrush Eyes: [place], EOMI Head and neck: Normocephalic, atraumatic, No JVD, neck is supple. Chest/heart: Nontender, S1,2, RRR, no murmurs, no gallops Lungs: CTAB, no wheezing or crackles Abdomen: Nontender, nondistended, BS+ Neuro: Rigidity is appparent - speech is compromised - gait is chronicaaly unstabel - coordination is impaired Musculoskeletal: No joint inflammation, muscle tenderness, FROM Skin: No acute rashes or ulcers Extremities: No clubbing, cyanosis - chronic RLE lymphedema
[2018-05-28] MEDS ORDERED: ACETAMINOPHEN 325 MG TAB PO PRN (14:25)
[2018-05-28] MEDS ORDERED: ONDANSETRON INJ 2 MG/ML 2 ML VIAL IV PRN (14:25)
[2018-05-28] MEDS: D5W AND LACTATED RINGERS 1,000 ML IV SCH (15:31)
[2018-05-28] MEDS: CARBIDOPA/LEVODOPA 25/100MG TAB PO SCH ×3 (15:31→21:01)
--- NOTE | 2018-05-28 16:58 | Emergency Department Note ---
Entered by Rk Graham acting as a scribe for Isaias Tompkins MD History of Present Illness General Chief complaint: Diarrhea Stated complaint: dehydration Time Seen by Provider: 05/28/18 11:14 Source: patient and RN notes reviewed Limitations: no limitations History of Present Illness Provider complaint: Diarrhea Onset (ago): day(s) (11) Location: buttocks (Diarrhea) Pain Consistency: + other (persistent) Quality: + other (Diarrhea) Associated symptoms: + denies other symptoms (No abd pain ) Treatments prior to arrival: other (Cefdinir, Vancomycin) The patient is a 72 year old male who presents to the Emergency Room with complaints of persistent diarrhea for the past 11 days. The patient was seen here in the department on May 17, 11 days ago for diarrhea and abdominal discomfort. Two days after his discharge from the ED the patient's urine grew out E. coli and a prescription of Cefdinir was called in for him by the ED pharmacist. The patient did follow with his primary care office who ordered a C. diff study, which resulted positive 2 days ago. He was started on Vancomycin 125 mg QID for 10 days. The patient was supposed to be admitted to [facility] this week, however they will not take him secondary to the C. diff diagnosis. He is currently complaining of diarrhea, but denies any abdominal pain or urinary complaints. Home Medications Home Medications Medication Instructions Recorded Confirmed Type benztropine 0.5 mg PO BID 02/05/18 05/28/18 History carbidopa-levodopa 2 tab PO Q3H 02/05/18 05/28/18 History rivaroxaban [Xarelto] 20 mg PO HS 02/05/18 05/28/18 History ropinirole 1 mg PO HS 02/05/18 05/28/18 History tamsulosin 0.4 mg PO HS 02/05/18 05/28/18 History carbidopa-levodopa 1 tab PO HS 03/26/18 05/28/18 History dutasteride 0.5 mg PO QAM 03/26/18 05/28/18 History pimavanserin [Nuplazid] 34 mg PO QAM 04/26/18 05/28/18 History ascorbic acid (vitamin C) [Vitamin 1,000 mg PO QAM 05/17/18 05/28/18 History C] cholecalciferol (vitamin D3) 2,000 unit PO QAM 05/17/18 05/28/18 History [Vitamin D3] cyanocobalamin (vitamin B-12) 1,000 mcg PO QAM 05/17/18 05/28/18 History [Vitamin B-12] vitamin E 400 unit PO QAM 05/17/18 05/28/18 History sulfamethoxazole-trimethoprim 1 tab PO BID 05/28/18 05/28/18 History vancomycin 125 mg PO QID 05/28/18 05/28/18 History Allergies Allergy/AdvReac Type Severity Reaction Status Date / Time hydromorphone Allergy Unknown hives on Verified 05/28/18 12:35 trunk pollen extracts Allergy Unknown SNEEZING,RUNNY Verified 05/28/18 12:35 NOSE mite-Dermatophagoides AdvReac Intermediate Sneeze, Verified 05/28/18 12:35 farinae, ying cough Poison Nguyen Extract/Poison Allergy Severe rash, itchy Uncoded 05/28/18 12:35 [place] Extra Past Med/Surg History Medical History Hernia, abdominal C. difficile colitis Parkinson disease (Chronic) DJD (degenerative joint disease) of hip (Resolved 12/28/13) Adynamic ileus (Resolved) Volvulus (Resolved) Leukocytosis (Resolved) UTI (urinary tract infection) (Resolved) Abdomen enlarged Bilateral pulmonary embolism Right knee DJD Family History Other No pertinent family history Social History marital status: Current Living Situation: Spouse current occupational status: retired Feels Safe at Home: Yes Smoking Status: Never smoker Preferred Language: Malawian Communication Ability: Impaired Review of Systems See HPI for pertinent positives & negatives. and A total of 10 systems reviewed and were otherwise negative Physical Exam Vital Signs Vital Signs - 24 hr 05/28/18 10:47 05/28/18 11:38 05/28/18 12:21 Temperature 36.6 C Temperature Source Oral Sepsis Recent Fever Within 48 Hours No Sepsis New/Unexplained Change in Mental Status No Sepsis Action Taken by Nursing No Action Required Pulse Rate 97 H Pulse Rate [Left Finger] 86 Respiratory Rate 20 25 H Blood Pressure 95/63 L Blood Pressure [Left Arm] 137/82 Blood Pressure Mean 73 Blood Pressure Mean [Left Arm] 100 Pulse Oximetry 92 92 95 Oxygen Delivery Method Room Air Room Air Room Air Oxygen Flow Rate 05/28/18 12:30 05/28/18 12:35 05/28/18 13:12 Temperature Temperature Source Sepsis Recent Fever Within 48 Hours Sepsis New/Unexplained Change in Mental Status Sepsis Action Taken by Nursing Pulse Rate Pulse Rate [Left Finger] 89 Respiratory Rate 23 Blood Pressure Blood Pressure [Left Arm] 129/80 Blood Pressure Mean Blood Pressure Mean [Left Arm] 96 Pulse Oximetry 87 L 94 93 Oxygen Delivery Method Room Air Nasal Cannula Nasal Cannula Oxygen Flow Rate 2 2 05/28/18 13:46 05/28/18 14:26 Temperature 37.2 C Temperature Source Oral Sepsis Recent Fever Within 48 Hours Sepsis New/Unexplained Change in Mental Status Sepsis Action Taken by Nursing Pulse Rate 105 H Pulse Rate [Left Finger] 87 Respiratory Rate 20 20 Blood Pressure 119/71 Blood Pressure [Left Arm] 131/77 Blood Pressure Mean Blood Pressure Mean [Left Arm] 95 Pulse Oximetry 95 94 Oxygen Delivery Method Nasal Cannula Room Air Oxygen Flow Rate 2 GENERAL: Patient is in no acute distress. HEENT: No acute trauma, normocephalic atraumatic, mucous membranes dry, no nasal congestion, no scleral icterus. NECK: No stridor, no adenopathy, no meningismus, trachea is midline. LUNGS: Clear to auscultation bilaterally, no wheeze, no rhonchi, breath sounds equal. HEART: Without murmurs gallops or rubs, regular rate and rhythm. ABDOMEN: Soft, nontender, bowel sounds positive, no peritonitis. There is a large abdominal wall hernia which is non-tender. EXTREMITIES: No cyanosis or edema, full range of motion of all the joints without pain or difficulty, no signs for acute trauma. NEUROLOGIC: Oriented x 3, no acute motor or sensory deficits, no focal weakness. SKIN: No rash, no jaundice, no diaphoresis. Course 1122: Past medical records reviewed. The patient was evaluated in room C10, and a complete history and physical examination were performed. 1216: I reviewed the patient's case with Dr. Luan PETERSON Hospitalist. He will evaluate the patient for further management. 1218: I updated the family. They are in agreement with treatment plan and admission to the hospital. Consultations Consultation #1: 1216: I reviewed the patient's case with Dr. Luan Sloan [facility] Hospitalist. He will evaluate the patient for further management. Administered Medications Carbidopa/Levodopa (Sinemet 25/100 Mg) 2 tab PO Q3HWA LYNSEY Stop: 06/27/18 14:59 Last Admin: 05/28/18 17:59 Dose: 2 tab Admin: 05/28/18 15:31 Dose: Not Given Dextrose/Lactated Ringer's (D5w And Lactated Ringers) 1,000 mls @ 80 mls/hr IV .[id number] LYNSEY Stop: 05/29/18 15:59 Last Admin: 05/28/18 15:31 Dose: 80 mls/hr Miscellaneous (Order Awaiting Action) 1 ea N/A QS LYNSEY Stop: 06/27/18 15:59 Last Admin: 05/28/18 15:31 Dose: Not Given Miscellaneous (Order Awaiting Action) 1 ea N/A QS LYNSEY Stop: 06/27/18 15:59 Last Admin: 05/28/18 15:32 Dose: Not Given Discontinued Medications Fidaxomicin (Dificid) 200 mg PO NOW STA Stop: 05/28/18 11:27 Last Admin: 05/28/18 12:13 Dose: 200 mg Sodium Chloride (Nss 1000ml) 1,000 mls @ 999 mls/hr IV .[id number] LYNSEY Stop: 05/28/18 12:30 Last Infusion: 05/28/18 13:17 Dose: 0 mls/hr Admin: 05/28/18 12:13 Dose: 999 mls/hr Medical Decision Making Differential Diagnosis Differential Diagnosis includes: Dehydration, bactermia, sepsis, electrolyte or metabolic abnormality, renal failure, UTI, failed outpatient treatment, anemia. Medical Records Attestation: I reviewed the patient's medical records. Home Medications Current Medication List: was personally reviewed by me Laboratory Data Attestation: I reviewed the patient's lab results. Result diagrams: 05/28/18 11:25 05/28/18 11:25 Lab Results 05/28/18 05/28/18 05/28/18 Range/Units 11:25 11:25 11:25 WBC 7.91 (4.8-10.8) K/uL RBC 4.71 (4.7-6.1) M/uL Hgb 14.6 (14.0-18.0) g/dL Hct 43.4 (42-52) % MCV 92.1 (80-100) fL MCH 31.0 (25-34) pg MCHC 33.6 (32-36) g/dL RDW Std Deviation 47.1 H (36.4-46.3) fL RDW Coeff of Ruth 13.9 (11.5-14.5) % Plt Count 241 (130-400) K/uL MPV 11.3 H (7.4-10.4) fL Immature Gran % (Auto) 0.3 % Neut % (Auto) 69.8 % Lymph % (Auto) 11.3 % [place] % (Auto) 17.8 % Eos % (Auto) 0.4 % Baso % (Auto) 0.4 % Immature Gran # (Auto) 0.02 (0.00-0.02) K/uL Neut # (Auto) 5.53 (1.4-6.5) K/uL Lymph # (Auto) 0.89 L (1.2-3.4) K/uL [place] # (Auto) 1.41 H (0.11-0.59) K/uL Eos # (Auto) 0.03 (0-0.5) K/uL Baso # (Auto) 0.03 (0-0.2) K/uL PT 14.0 H (9.0-12.0) Seconds INR 1.4 H (0.9-1.1) APTT 40.1 H (21.0-31.0) Seconds PTT Ratio 1.5 Sodium 140 (136-145) mmol/L Potassium 3.5 (3.5-5.1) mmol/L Chloride 105 (98-107) mmol/L Carbon Dioxide 30 (21-32) mmol/L Anion Gap 5.0 (3-11) BUN 17 (7-18) mg/dl Creatinine 0.83 (0.6-1.4) mg/dl Est Cr Clr Drug Dosing 90.7 ml/min Est GFR ( Amer) 101.2 Est GFR (Non-Af Amer) 87.3 BUN/Creatinine Ratio 20.7 H (10-20) Glucose 87 (70-99) mg/dl Lactate (0.4-2.0) mmol/L Calcium 8.3 L (8.5-10.1) mg/dl Magnesium 2.0 (1.8-2.4) mg/dl Total Bilirubin 0.8 (0.2-1) mg/dl AST 12 L (15-37) U/L ALT 8 L (12-78) U/L Alkaline Phosphatase 80 (45-117) U/L Troponin I < 0.015 (0-0.045) ng/ml Total Protein 7.5 (6.4-8.2) gm/dl Albumin 2.6 L (3.4-5.0) gm/dl Globulin 4.9 H (2.5-4.0) gm/dl Albumin/Globulin Ratio 0.5 L (0.9-2) TSH 1.720 (0.300-4.500) uIu/ml 05/28/18 Range/Units 11:54 WBC (4.8-10.8) K/uL RBC (4.7-6.1) M/uL Hgb (14.0-18.0) g/dL Hct (42-52) % MCV (80-100) fL MCH (25-34) pg MCHC (32-36) g/dL RDW Std Deviation (36.4-46.3) fL RDW Coeff of Ruth (11.5-14.5) % Plt Count (130-400) K/uL MPV (7.4-10.4) fL Immature Gran % (Auto) % Neut % (Auto) % Lymph % (Auto) % [place] % (Auto) % Eos % (Auto) % Baso % (Auto) % Immature Gran # (Auto) (0.00-0.02) K/uL Neut # (Auto) (1.4-6.5) K/uL Lymph # (Auto) (1.2-3.4) K/uL [place] # (Auto) (0.11-0.59) K/uL Eos # (Auto) (0-0.5) K/uL Baso # (Auto) (0-0.2) K/uL PT (9.0-12.0) Seconds INR (0.9-1.1) APTT (21.0-31.0) Seconds PTT Ratio Sodium (136-145) mmol/L Potassium (3.5-5.1) mmol/L Chloride (98-107) mmol/L Carbon Dioxide (21-32) mmol/L Anion Gap (3-11) BUN (7-18) mg/dl Creatinine (0.6-1.4) mg/dl Est Cr Clr Drug Dosing ml/min Est GFR ( Amer) Est GFR (Non-Af Amer) BUN/Creatinine Ratio (10-20) Glucose (70-99) mg/dl Lactate 1.3 (0.4-2.0) mmol/L Calcium (8.5-10.1) mg/dl Magnesium (1.8-2.4) mg/dl Total Bilirubin (0.2-1) mg/dl AST (15-37) U/L ALT (12-78) U/L Alkaline Phosphatase (45-117) U/L Troponin I (0-0.045) ng/ml Total Protein (6.4-8.2) gm/dl Albumin (3.4-5.0) gm/dl Globulin (2.5-4.0) gm/dl Albumin/Globulin Ratio (0.9-2) TSH (0.300-4.500) uIu/ml Imaging Data Radiologist's Impression: Radiology results as stated below per my review and the radiologist's interpretation: XR chest 1V portable CLINICAL HISTORY: weakness dyspnea COMPARISON STUDY: 04/26/2018 FINDINGS: The bones soft tissues and hemidiaphragms are normal. The cardiomediastinal silhouette is normal. The lungs are clear. The pulmonary vasculature is normal. IMPRESSION: Negative chest. The above report was generated using voice recognition software. It may contain grammatical, syntax or spelling errors. Electronically signed by: Nicholas Johnson M.D. 05/28/2018 12:20 PM ECG Data Attestation: I personally reviewed and interpreted this ECG as follows: Indication: weakness and other (C.diff/Diarrhea) Rate (beats per minute): 84 Rhythm: normal sinus Findings: no PVC and no ST elevation Blood Pressure Blood Pressure Findings: Low blood pressure Blood Pressure Disposition: further management by hospitalist RHIANNA Narrative There is no leukocytosis or concerning anemia. No significant electrolyte abnormality or kidney failure. There was no hepatitis. The patient appeared to be in a euthyroid state. EKG shows a sinus rhythm, no acute ischemia. Cardiac enzyme testing x1 is not consistent with acute cardiac injury. Lactic acid level is not elevated making severe sepsis less likely. INR slightly elevated at 1.4. Chest x-ray does not show pneumonia or CHF. On exam, the patient did seem somewhat dehydrated. He was not febrile, he was not toxic. The patient was given IV saline, this did improve his blood pressure. He received oral Dificid for his C. difficile colitis. The patient is failing outpatient treatment for his C. difficile. He is dehydrated and quite weak. I do think a hospital stay is warranted. I did speak to the patient and case management. The on-call hospitalist was consulted. Impression & Plan Weakness, C. difficile diarrhea, Hypotension, Dehydration, Failure of outpatient treatment Discharge Plan Visit Data *Final* Discharge Date/Time: 05/28/18 13:46 Chief Complaint: Diarrhea Stated Complaint: dehydration ED Provider: Isaias Tompkins Discharge Problem: Weakness, C. difficile diarrhea, Hypotension, Dehydration, Failure of outpatient treatment Patient Disposition: Admitted As Inpatient Discharge Instructions Interventions: ED Discharge Assessment Last Done: 05/28/18 13:46 The sriibe's documentation has been prepared under my direction and personally reviewed by me in its entirety. I confirm that the note above accurately reflects all work, treatment, procedures, and medical decision making performed by me.
[2018-05-28] MEDS: BENZTROPINE MESYLATE 0.5 MG TAB PO SCH (20:58)
[2018-05-28] MEDS: FIDAXOMICIN 200 MG TAB PO SCH (20:59)
[2018-05-28] MEDS: ROPINIROLE HCL 1 MG TABLET PO SCH (21:00)
[2018-05-28] MEDS: TAMSULOSIN HCL 0.4 MG CAP PO SCH (21:00)
[2018-05-28] MEDS: CARBIDOPA/LEVODOPA 50/200MG EXT REL TAB PO SCH (21:01)
[2018-05-28] MEDS: RIVAROXABAN 20 MG TAB PO SCH (21:01)
[2018-05-28] MEDS ORDERED: CALCIUM CARBONATE 500 MG CHEWABLE TAB PO PRN (22:37)
[2018-05-28 22:48] LABS: Appearance Urine Clear (Clear); Bacteria Urine Automated Negative (Negative); Bilirubin Urine Negative (Negative); Blood Urine Negative (Negative); Color Urine Dark Yellow; Epithelial Cell Urine Auto 20-30 /lpf (0-5); Glucose Urine UA Negative (Negative); Ketones Urine Trace (Negative); Leukocyte Esterase Urine 1+ (Negative); Nitrite Urine Negative (Negative); Protein Urine Negative (Negative); Specific Gravity Urine 1.027 (1.000-1.030); Urobilinogen Urine Negative (Negative)
[2018-05-29] MEDS: D5W AND LACTATED RINGERS 1,000 ML IV SCH (03:07)
[2018-05-29] MEDS: CARBIDOPA/LEVODOPA 25/100MG TAB PO SCH ×6 (05:35→21:34)
[2018-05-29 06:29] LABS: Basophils # (auto) 0.02 K/uL (0-0.2); Basophils % (auto) 0.4 %; Eosinophils % (auto) 1.9 %; Hematocrit (blood only) 34.9 % (42-52); Hemoglobin 11.6 g/dL (14.0-18.0); Immature Granulocytes # (auto) 0.01 K/uL (0.00-0.02); Immature Granulocytes % (auto) 0.2 %; Lymphocytes # (auto) 1.38 K/uL (1.2-3.4); Lymphocytes % (auto) 25.9 %; Mean Corpuscular Hgb Conc 33.2 g/dL (32-36); Mean Corpuscular Volume 93.3 fL (80-100); Mean Platelet Volume 11.8 fL (7.4-10.4); Monocytes # (auto) 1.33 K/uL (0.11-0.59); Neutrophils # (auto) 2.48 K/uL (1.4-6.5); Neutrophils % (auto) 46.6 %; Platelet Count 213 K/uL (130-400); RDW Coefficient of Variation 13.8 % (11.5-14.5); RDW Standard Deviation 47.5 fL (36.4-46.3); Red Blood Count 3.74 M/uL (4.7-6.1); White Blood Count 5.32 K/uL (4.8-10.8)
[2018-05-29 06:55] LABS: BUN Creatinine Ratio 18.5 (10-20); Calcium 7.4 mg/dl (8.5-10.1); Creatinine Clr Calc Pharmacy 114.1 ml/min; Est GFR (African American) 111.2; Est GFR (Non-African American) 95.9; Magnesium 1.8 mg/dl (1.8-2.4); Potassium 3.2 mmol/L (3.5-5.1)
[2018-05-29] MEDS: CYANOCOBALAMIN 500 MCG TABLET (VITAMIN B-12) PO SCH (07:43)
[2018-05-29] MEDS: FIDAXOMICIN 200 MG TAB PO SCH (07:44)
[2018-05-29] MEDS: BENZTROPINE MESYLATE 0.5 MG TAB PO SCH ×2 (07:44→21:33)
[2018-05-29] MEDS ORDERED: POTASSIUM CHLORIDE 20 MEQ TABCR PO STA (08:24)
--- NOTE | 2018-05-29 16:30 | XRay Report ---
KUB HISTORY: Generalized abdominal pain. COMPARISON: Abdomen and pelvis CT 05/17/2018. FINDINGS: There again noted a dilated colon containing a large amount of stool. Bilateral total hip a rthroplasties. An IVC filter is unchanged in position. Lung bases are clear. No dilated loops of smal l bowel identified. The colon is distended up to 12.6 cm. No significant gas within the rectum. No re nal calculi. No ureteral calculi. No pneumoperitoneum or pneumatosis. IMPRESSION: No significant change in the distended colon containing a large amount well-formed stool. No signific ant gas within the rectum. This was also identified on the prior abdomen and pelvis CT and was due to the thickened distal sigmoid colon. Electronically signed by: Carlos Dunn M.D. 05/29/2018 4:29 PM
--- NOTE | 2018-05-29 16:43 | Hospitalist Progress Note ---
Date of Service May 29, 2018 Assessment & Plan (1) C. difficile diarrhea: - H/o recurrent C. diff; tested positive for C. diff on 03/09/18, negative on 04/19/18. - C. diff testing on 05/25 showed +gene, negative for toxin. - Started PO Vancomycin on 05/25; converted to Fidaxomycin BID as inpt - will d/ c as C. diff toxin is negative. - Will consult GI (follows as outpt) to determine treatment plan. - Is scheduled for colonoscopy in June 2018. (2) Constipation: - Recent imaging of abdomen with moderate to severe constipation with colonic distention, left colon decompressed and nonspecific proctocolitis. - Majority of stool is above ventral hernia. - KUB showed distended colon containing large amount of stool. - Will start Miralax QID with Dulcolax 10 mg x 1 dose. - Gen surg and GI consulted. (3) Generalized weakness: - PT/OT ordered -- his is not able to care for him at home. - Plan for discharge to [facility] when clinically stable. (4) Hypotension: - BP was 81/53 this morning -- is likely related to dehydration. - Continue IV fluids -- will decrease rate to 80 cc/hr as hypotension now improved. (5) Parkinsons disease: - Continue Sinemet and Requip as prescribed. (6) BPH (benign prostatic hyperplasia): - Continue Flomax as prescribed. (7) Ventral hernia: - Has large ventral hernia in pelvis that contains nonobstructed loops of bowel on recent CT scans of abdomen/pelvis. - Will consult general surgery for input. (8) History of colectomy: - S/p sigmoid colectomy in 2014. - Consult surgery as noted above. (9) Chronic diastolic heart failure: - Echo in November 2017 showed EF 50-55%, grade I diastolic dysfunction. - Monitor daily weights and I/O's. - Not currently on treatment. (10) Bilateral pulmonary embolism: - H/o PE/DVT. - Continue Xarelto as prescribed. 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 (12) Acute anemia: - Hemoglobin dropped to 11.6; may be dilutional from IV fluids. - Monitor CBC qAM. (13) Electrolyte abnormality: - K 3.2 -- ordered KCl 40 mEq PO and added KCl to IV fluids. - Monitor levels qAM. (14) DVT prophylaxis: - Xarelto. Dispo: Med/surg for treatment of constipation, PT/OT evaluation. Supervising Physician Co-Signing Physician Notes PA Supervision Note: I did not personally see or examine the patient today, but I verified all dickey points of ANETA Cooper's assessment and plan with the following exceptions/ additions: None Subjective Pt. is doing well overall today. He had 1 BM since 7 am this morning. Denies abdominal pain. PT/OT ordered -- will be discharged to SNF pending assessment. Discussed plan of care with his at bedside -- she has concerns about discharge planning due to leaving for vacation on Thursday. Explained that she will be contacted when patient is medically stable for discharge to SNF. Review of Systems All systems reviewed & are unremarkable except as noted in HPI & below Constitutional: + weakness; no fever and no chills Respiratory: no cough and no dyspnea Cardiovascular: no chest pain, no palpitations and no edema Gastrointestinal: + diarrhea/loose stools; no abdominal pain, no nausea and no constipation Genitourinary (Male): no difficulty urinating Musculoskeletal: no joint pain Allergy / Immunological: no rash Physical Exam 2 Vital Signs (Past 24 Hours): Last Vital Signs Temp 36.5 C 05/29/18 15:10 Pulse 71 05/29/18 15:10 Resp 20 05/29/18 15:10 BP 127/77 05/29/18 15:10 Pulse Ox 91 05/29/18 15:10 Physical Exam: General: Resting comfortably in no apparent distress HEENT: NC/AT; PERRLA with EOMI; [place] conjunctiva, MMM. Neck: Supple and nontender Cardiac: RRR Lungs: CTA bilaterally Abdomen: Bowel normoactive X 4; Nontender to palpation Extremities: Warm. No edema present Neuro: speech is slurred, rigidity from Parkinson's noted. Skin: No rash Results & Data Laboratory Results 05/29/18 05/29/18 05/28/18 Range/Units 05:33 05:33 22:19 WBC 5.32 (4.8-10.8) K/uL RBC 3.74 L (4.7-6.1) M/uL Hgb 11.6 L D (14.0-18.0) g/dL Hct 34.9 L (42-52) % MCV 93.3 (80-100) fL MCH 31.0 (25-34) pg MCHC 33.2 (32-36) g/dL RDW Std Deviation 47.5 H (36.4-46.3) fL RDW Coeff of Ruth 13.8 (11.5-14.5) % Plt Count 213 (130-400) K/uL MPV 11.8 H (7.4-10.4) fL Immature Gran % (Auto) 0.2 % Neut % (Auto) 46.6 % Lymph % (Auto) 25.9 % [place] % (Auto) 25.0 % Eos % (Auto) 1.9 % Baso % (Auto) 0.4 % Immature Gran # (Auto) 0.01 (0.00-0.02) K/uL Neut # (Auto) 2.48 (1.4-6.5) K/uL Lymph # (Auto) 1.38 (1.2-3.4) K/uL [place] # (Auto) 1.33 H (0.11-0.59) K/uL Eos # (Auto) 0.10 (0-0.5) K/uL Baso # (Auto) 0.02 (0-0.2) K/uL Sodium 139 (136-145) mmol/L Potassium 3.2 L (3.5-5.1) mmol/L Chloride 106 (98-107) mmol/L Carbon Dioxide 29 (21-32) mmol/L Anion Gap 4.0 (3-11) BUN 12 (7-18) mg/dl Creatinine 0.66 (0.6-1.4) mg/dl Est Cr Clr Drug Dosing 114.1 ml/min Est GFR ( Amer) 111.2 Est GFR (Non-Af Amer) 95.9 BUN/Creatinine Ratio 18.5 (10-20) Glucose 87 (70-99) mg/dl Calcium 7.4 L (8.5-10.1) mg/dl Magnesium 1.8 (1.8-2.4) mg/dl Urine Color Dark Yellow Urine Appearance Clear (Clear) Urine pH 5.0 (4.5-7.5) Ur Specific [place] 1.027 (1.000-1.030) Urine Protein Negative (Negative) Urine Glucose (UA) Negative (Negative) Urine Ketones Trace H (Negative) Urine Blood Negative (Negative) Urine Nitrite Negative (Negative) Urine Bilirubin Negative (Negative) Urine Urobilinogen Negative (Negative) Ur Leukocyte Esterase 1+ H (Negative) Urine WBC (Auto) 10-30 H (0-5) /hpf Urine RBC (Auto) 5-10 H (0-4) /hpf U Hyaline Cast (Auto) 1-5 (0-5) /lpf U Epithel Cells (Auto) 20-30 H (0-5) /lpf Urine Bacteria (Auto) Negative (Negative)
[2018-05-29] MEDS: POTASSIUM CHLORIDE 40 MEQ in SODIUM CHLORIDE 0.9% 1000ML 1,000 ML IV SCH (16:48)
[2018-05-29] MEDS ORDERED: BISACODYL 5 MG TABEC PO ONE (16:54)
--- NOTE | 2018-05-29 17:12 | Surgery Consultation ---
Date of Consultation May 29, 2018 Assessment & Plan (1) C. difficile diarrhea: 71-year-old male admitted with hypotension and +c.diff gene. Vital signs stable at this time. Patient denies abdominal pain at this time- abdominal exam reveals a large, non- reducible ventral hernia, no acute abdominal exam findings. Recent imaging reviewed with Dr. Redd. KUB (05/29) reveals large amount well-formed stool. No indication for surgical intervention indicated. GI consulted for evaluation. We will continue to follow this weekend. Will make Dr. Salcedo aware of patient Thursday. History of Present Illness Reason for Consultation: Abd pain, h/o C. diff and volvulus Requesting Physician: Julissa Dominique MD Attending Physician: Julissa Dominique MD History of Present Illness Mr. Umanzor is a 72-year-old male with past medical history significant for Parkinson's Disease, DVT/PE (s/p placement of IVC filter, on daily Xarelto), chronic diastolic heart failure, BPH, history of colectomy [place] [address] [place]o, who presented to [facility] with recurrent c. diff. Per ED records and hospitalist H and P patient admits to 2 month history of diarrhea following c. diff infection. Patient was originally diagnosed with c. diff on 03/09/2018, received outpatient treatment and was c.diff negative on 04/19/2018. His episodes of diarrhea became more frequent and c.diff testing from PCP confirmed patient c. diff gene +, but c.diff toxin negative. Patient became hypotensive in ED yesterday and was admitted for evaluation. He currently resides at home with his who cares for him. Allergies Allergy/AdvReac Type Severity Reaction Status Date / Time hydromorphone Allergy Unknown hives on Verified 05/28/18 12:35 trunk pollen extracts Allergy Unknown SNEEZING,RUNNY Verified 05/28/18 12:35 NOSE mite-Dermatophagoides AdvReac Intermediate Sneeze, Verified 05/28/18 12:35 farinae, ying cough Poison Nguyen Extract/Poison Allergy Severe rash, itchy Uncoded 05/28/18 12:35 [place] Extra Home Medications Home Medications Medication Instructions Recorded Confirmed Type benztropine 0.5 mg PO BID 02/05/18 05/28/18 History carbidopa-levodopa 2 tab PO Q3H 02/05/18 05/28/18 History rivaroxaban [Xarelto] 20 mg PO HS 02/05/18 05/28/18 History ropinirole 1 mg PO HS 02/05/18 05/28/18 History tamsulosin 0.4 mg PO HS 02/05/18 05/28/18 History carbidopa-levodopa 1 tab PO HS 03/26/18 05/28/18 History dutasteride 0.5 mg PO QAM 03/26/18 05/28/18 History pimavanserin [Nuplazid] 34 mg PO QAM 04/26/18 05/28/18 History ascorbic acid (vitamin C) [Vitamin 1,000 mg PO QAM 05/17/18 05/28/18 History C] cholecalciferol (vitamin D3) 2,000 unit PO QAM 05/17/18 05/28/18 History [Vitamin D3] cyanocobalamin (vitamin B-12) 1,000 mcg PO QAM 05/17/18 05/28/18 History [Vitamin B-12] vitamin E 400 unit PO QAM 05/17/18 05/28/18 History sulfamethoxazole-trimethoprim 1 tab PO BID 05/28/18 05/28/18 History vancomycin 125 mg PO QID 05/28/18 05/28/18 History Patient History Medical History Hernia, abdominal C. difficile colitis Parkinson disease (Chronic) DJD (degenerative joint disease) of hip (Resolved 12/28/13) Adynamic ileus (Resolved) Volvulus (Resolved) Leukocytosis (Resolved) UTI (urinary tract infection) (Resolved) Abdomen enlarged Bilateral pulmonary embolism Right knee DJD Family History Other No pertinent family history Social History marital status: Current Living Situation: Spouse current occupational status: retired Other Information That Helps Us Care for You: No Feels Safe at Home: Yes Safety Concerns: Feels Safe At This Time Smoking Status: Never smoker Do You Dip or Chew Tobacco: No Second Hand Exposure: No Hx Alcohol Use: Yes Alcohol type: wine Alcohol Intake Frequency: 0-2 drinks per day Hx Substance Use: No Beliefs That Will Affect Care: None Communication Ability: Effective Physical Exam 2 Vital Signs (Past 24 Hours): Last Vital Signs Temp 36.5 C 05/29/18 15:10 Pulse 71 05/29/18 15:10 Resp 20 05/29/18 15:10 BP 127/77 05/29/18 15:10 Pulse Ox 91 05/29/18 15:10 Gastrointestinal (Abdomen): Percussion/Palpation: abdomen soft and + hernia ( large, non-reducible, ventral hernia. ); abdomen nontender, no guarding and abdomen not rigid
[2018-05-29] MEDS: TAMSULOSIN HCL 0.4 MG CAP PO SCH (21:33)
[2018-05-29] MEDS: CARBIDOPA/LEVODOPA 50/200MG EXT REL TAB PO SCH (21:33)
[2018-05-29] MEDS: POLYETHYLENE (MIRALAX) 17 GM PACK PO SCH (21:33)
[2018-05-29] MEDS: ROPINIROLE HCL 1 MG TABLET PO SCH (21:33)
[2018-05-29] MEDS: RIVAROXABAN 20 MG TAB PO SCH (21:34)
[2018-05-30] MEDS: POTASSIUM CHLORIDE 40 MEQ in SODIUM CHLORIDE 0.9% 1000ML 1,000 ML IV SCH ×2 (04:00→15:21)
[2018-05-30] MEDS: CARBIDOPA/LEVODOPA 25/100MG TAB PO SCH ×6 (05:49→20:08)
[2018-05-30 07:08] LABS: Hematocrit (blood only) 36.4 % (42-52); Hemoglobin 12.1 g/dL (14.0-18.0); Mean Corpuscular Hgb Conc 33.2 g/dL (32-36); Mean Corpuscular Volume 92.9 fL (80-100); Platelet Count 221 K/uL (130-400); RDW Coefficient of Variation 13.9 % (11.5-14.5); RDW Standard Deviation 47.3 fL (36.4-46.3); Red Blood Count 3.92 M/uL (4.7-6.1); White Blood Count 5.61 K/uL (4.8-10.8)
[2018-05-30] MEDS: CYANOCOBALAMIN 500 MCG TABLET (VITAMIN B-12) PO SCH (07:26)
[2018-05-30] MEDS: POLYETHYLENE (MIRALAX) 17 GM PACK PO SCH ×3 (07:26→20:08)
[2018-05-30] MEDS: BENZTROPINE MESYLATE 0.5 MG TAB PO SCH ×2 (07:26→20:07)
[2018-05-30 07:44] LABS: BUN Creatinine Ratio 11.4 (10-20); Calcium 7.6 mg/dl (8.5-10.1); Creatinine Clr Calc Pharmacy 135.3 ml/min; Est GFR (African American) 119.8; Est GFR (Non-African American) 103.4
--- NOTE | 2018-05-30 09:01 | Surgery Progress Note ---
Date of Service May 30, 2018 Assessment & Plan (1) C. difficile diarrhea: 05/30/2018 Patient seen and examined with Dr. Redd. Patient denies abdominal pain. Abdominal exam reveals large ventral hernia, abdomen is soft, non-tender. +BM, +passing flatus. Tolerating diet. No indication for surgical intervention at this time. GI has been consulted. General Surgery will sign off at this time. Please call with questions or concerns. 05/29/2018 71-year-old male admitted with hypotension and +c.diff gene. Vital signs stable at this time. Patient denies abdominal pain at this time- abdominal exam reveals a large, non- reducible ventral hernia, no acute abdominal exam findings. Recent imaging reviewed with Dr. Redd. KUB (05/29) reveals large amount well-formed stool. No indication for surgical intervention indicated. GI consulted for evaluation. We will continue to follow this weekend. Will make Dr. Salcedo aware of patient Thursday AM. Subjective Patient resting comfortably in bed. No new concerns or complaints overnight. Physical Exam 2 Vital Signs (Past 24 Hours): Last Vital Signs Temp 37.0 C 05/30/18 07:52 Pulse 65 05/30/18 07:52 Resp 20 05/30/18 07:52 BP 110/65 05/30/18 07:52 Pulse Ox 90 05/30/18 07:52 Gastrointestinal (Abdomen): Percussion/Palpation: abdomen soft and + hernia ( large, non-reducible, ventral hernia. ); abdomen nontender, no guarding and abdomen not rigid
--- NOTE | 2018-05-30 15:23 | Gastrointestinal Consultation ---
Date of Consultation May 30, 2018 Assessment & Plan (1) Constipation: 72 yo male with Parkinsons recently treated for C diff (x2) admitte with abd pain. Large amount of stool on imaging. Now having BMs with bowel regimen and pain improved. C diff toxin negative here. Continue with supportive measures. Bowel regimen. Limit abx as possible. Please call with questions. (2) BPH (benign prostatic hyperplasia): (3) Ventral hernia: (4) Parkinsons disease: (5) Generalized weakness: (6) Failure of outpatient treatment: (7) C. difficile diarrhea: (8) Dehydration: History of Present Illness Reason for Consultation: "h/o C diff, abd pain" Attending Physician: Julissa Dominique MD History of Present Illness Mr. 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 He has a recent (approx 2 months ago) history of C diff which was treated with a course of oral vancomycin. He continued to have problems with diarrhea for weeks after completion and ultimately was seen by his PCP 05/25 and retested and again treated. He was admitted with failure to thrive, volume depletion, and abdominal pain. Evaluation here revealed a ventral abd hernia as well as a large amount of stool in the colon. Since starting again to have BMs his abd pain has improved. C diff testing her eis + for gene but negative for toxin. He was originally started on fidaxomicin but this was stopped by the primary service. Allergies Allergy/AdvReac Type Severity Reaction Status Date / Time hydromorphone Allergy Unknown hives on Verified 05/28/18 12:35 trunk pollen extracts Allergy Unknown SNEEZING,RUNNY Verified 05/28/18 12:35 NOSE mite-Dermatophagoides AdvReac Intermediate Sneeze, Verified 05/28/18 12:35 farinae, ying cough Poison Nguyen Extract/Poison Allergy Severe rash, itchy Uncoded 05/28/18 12:35 [place] Extra Home Medications Home Medications Medication Instructions Recorded Confirmed Type benztropine 0.5 mg PO BID 02/05/18 05/28/18 History carbidopa-levodopa 2 tab PO Q3H 02/05/18 05/28/18 History rivaroxaban [Xarelto] 20 mg PO HS 02/05/18 05/28/18 History ropinirole 1 mg PO HS 02/05/18 05/28/18 History tamsulosin 0.4 mg PO HS 02/05/18 05/28/18 History carbidopa-levodopa 1 tab PO HS 03/26/18 05/28/18 History dutasteride 0.5 mg PO QAM 03/26/18 05/28/18 History pimavanserin [Nuplazid] 34 mg PO QAM 04/26/18 05/28/18 History ascorbic acid (vitamin C) [Vitamin 1,000 mg PO QAM 05/17/18 05/28/18 History C] cholecalciferol (vitamin D3) 2,000 unit PO QAM 05/17/18 05/28/18 History [Vitamin D3] cyanocobalamin (vitamin B-12) 1,000 mcg PO QAM 05/17/18 05/28/18 History [Vitamin B-12] vitamin E 400 unit PO QAM 05/17/18 05/28/18 History sulfamethoxazole-trimethoprim 1 tab PO BID 05/28/18 05/28/18 History vancomycin 125 mg PO QID 05/28/18 05/28/18 History Patient History Medical History Hernia, abdominal C. difficile colitis Parkinson disease (Chronic) DJD (degenerative joint disease) of hip (Resolved 12/28/13) Adynamic ileus (Resolved) Volvulus (Resolved) Leukocytosis (Resolved) UTI (urinary tract infection) (Resolved) Abdomen enlarged Bilateral pulmonary embolism Right knee DJD Family History Other No pertinent family history Social History marital status: Current Living Situation: Spouse current occupational status: retired Other Information That Helps Us Care for You: No Feels Safe at Home: Yes Safety Concerns: Feels Safe At This Time Smoking Status: Never smoker Do You Dip or Chew Tobacco: No Second Hand Exposure: No Hx Alcohol Use: Yes Alcohol type: wine Alcohol Intake Frequency: 0-2 drinks per day Hx Substance Use: No Beliefs That Will Affect Care: None Communication Ability: Effective Review of Systems 12 systems reviewed and negative except as noted Constitutional: + weakness; no fever and no chills Gastrointestinal: + diarrhea/loose stools; no abdominal pain, no nausea and no constipation Physical Exam 2 Vital Signs (Past 24 Hours): Last Vital Signs Temp 36.8 C 05/30/18 14:43 Pulse 71 05/30/18 14:43 Resp 20 05/30/18 14:43 BP 97/60 L 05/30/18 14:43 Pulse Ox 95 05/30/18 14:43 Constitutional: WD/WN, vitals as above Respiratory: normal respiratory effort, lungs clear to auscultation Cardiovascular: RRR, no murmur, no edema Gastrointestinal (Abdomen): normal bowel sounds, soft, nontender, no hepatosplenomegaly ventral hernia present
--- NOTE | 2018-05-30 15:50 | Hospitalist Progress Note ---
Date of Service May 30, 2018 Assessment & Plan (1) C. difficile diarrhea: - H/o recurrent C. diff; tested positive for C. diff on 03/09/18, negative on 04/19/18. - C. diff testing on 05/25 showed +gene, negative for toxin. - Started PO Vancomycin on 05/25; converted to Fidaxomycin BID as inpt - d/c'ed as toxin is negative. - Consulted GI, appreciate input. - Will need colonoscopy as outpatient. (2) Constipation: - Recent imaging of abdomen with moderate to severe constipation with colonic distention, left colon decompressed and nonspecific proctocolitis. - KUB showed distended colon containing large amount of stool. - Miralax TID scheduled, will give Dulcolax 10 mg PO x 1 dose as well -- is having regular BMs. - Consider repeat KUB to evaluate for improvement in constipation. - Gen surg and GI consulted -- appreciate input. (3) Generalized weakness: - PT/OT recommending SNF. - Plan for discharge to [facility] pending placement. (4) Hypotension: - BP now improved, was likely related to dehydration. - D/c'ed IV fluids. (5) Parkinsons disease: - Continue Sinemet and Requip as prescribed. - On Nuplazid at home -- is non-formulary, will not be able to bring med from home as she is leaving for vacation. (6) BPH (benign prostatic hyperplasia): - Continue Flomax as prescribed. (7) Ventral hernia: - Has large ventral hernia in pelvis that contains nonobstructed loops of bowel on recent CT scans of abdomen/pelvis. - General surgery following, no intervention indicated. (8) History of colectomy: - S/p sigmoid colectomy in 2014. - Consulted surgery as noted above. (9) Chronic diastolic heart failure: - Echo in November 2017 showed EF 50-55%, grade I diastolic dysfunction. - Monitor daily weights and I/O's. - Not currently on treatment. (10) Bilateral pulmonary embolism: - H/o PE/DVT. - Continue Xarelto as prescribed. 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 (12) Acute anemia: - Hemoglobin decreased from baseline, likely dilutional. - Monitor CBC qAM. (13) Electrolyte abnormality: - No replacement required today. (14) DVT prophylaxis: - Xarelto. Dispo: Med/surg for treatment of constipation; discharge pending placement at [facility]. Supervising Physician Co-Signing Physician Notes PA Supervision Note: I did not personally see or examine the patient today, but I verified all dickey points of ANETA Cooper's assessment and plan with the following exceptions/ additions: None Pt with large volume stool in colon, but presented with diarrhea likely loose stool leaking around impacted stool in colon. Giving large amounts of Miralax, Bisacodyl, attempting to cleanse bowel at this time. He is a C. diff carrier, but no true infection. Continue current regimen to clean out bowel, watch hernia closely Subjective Pt. is doing well overall today. Constipation resolving -- he had a large BM this morning. Pt. denies abdominal pain, nausea. Plan for discharge to SNF pending placement. Review of Systems All systems reviewed & are unremarkable except as noted in HPI & below Constitutional: + weakness; no fever and no chills Respiratory: no cough and no dyspnea Cardiovascular: no chest pain, no palpitations and no edema Gastrointestinal: + constipation; no abdominal pain and no nausea Genitourinary (Male): no difficulty urinating Musculoskeletal: no joint pain Allergy / Immunological: no rash Physical Exam 2 Vital Signs (Past 24 Hours): Last Vital Signs Temp 36.8 C 05/30/18 14:43 Pulse 71 05/30/18 14:43 Resp 20 05/30/18 14:43 BP 97/60 L 05/30/18 14:43 Pulse Ox 95 05/30/18 14:43 Physical Exam: General: Resting comfortably in no apparent distress HEENT: NC/AT; PERRLA with EOMI; [place] conjunctiva, MMM. Neck: Supple and nontender Cardiac: RRR Lungs: CTA bilaterally Abdomen: Bowel normoactive X 4; Nontender to palpation Extremities: Warm. No edema present Neuro: speech is slurred, rigidity from Parkinson's noted. Skin: No rash Results & Data Laboratory Results 05/30/18 05/30/18 Range/Units 06:49 06:49 WBC 5.61 (4.8-10.8) K/uL RBC 3.92 L (4.7-6.1) M/uL Hgb 12.1 L (14.0-18.0) g/dL Hct 36.4 L (42-52) % MCV 92.9 (80-100) fL MCH 30.9 (25-34) pg MCHC 33.2 (32-36) g/dL RDW Std Deviation 47.3 H (36.4-46.3) fL RDW Coeff of Ruth 13.9 (11.5-14.5) % Plt Count 221 (130-400) K/uL MPV 11.0 H (7.4-10.4) fL Sodium 138 (136-145) mmol/L Potassium 4.0 D (3.5-5.1) mmol/L Chloride 107 (98-107) mmol/L Carbon Dioxide 26 (21-32) mmol/L Anion Gap 5.0 (3-11) BUN 6 L D (7-18) mg/dl Creatinine 0.55 L (0.6-1.4) mg/dl Est Cr Clr Drug Dosing 135.3 ml/min Est GFR ( Amer) 119.8 Est GFR (Non-Af Amer) 103.4 BUN/Creatinine Ratio 11.4 (10-20) Glucose 85 (70-99) mg/dl Calcium 7.6 L (8.5-10.1) mg/dl
[2018-05-30] MEDS ORDERED: BISACODYL 5 MG TABEC PO ONE ×2 (16:33→17:26)
[2018-05-30] MEDS: TAMSULOSIN HCL 0.4 MG CAP PO SCH (20:07)
[2018-05-30] MEDS: CARBIDOPA/LEVODOPA 50/200MG EXT REL TAB PO SCH (20:09)
[2018-05-30] MEDS: ROPINIROLE HCL 1 MG TABLET PO SCH (20:09)
[2018-05-30] MEDS: RIVAROXABAN 20 MG TAB PO SCH (20:09)
[2018-05-31 05:51] LABS: Hematocrit (blood only) 39.1 % (42-52); Hemoglobin 13.2 g/dL (14.0-18.0); Mean Corpuscular Hgb Conc 33.8 g/dL (32-36); Mean Corpuscular Volume 92.7 fL (80-100); Mean Platelet Volume 11.6 fL (7.4-10.4); Platelet Count 233 K/uL (130-400); RDW Coefficient of Variation 13.8 % (11.5-14.5); RDW Standard Deviation 46.9 fL (36.4-46.3); Red Blood Count 4.22 M/uL (4.7-6.1)
[2018-05-31] MEDS: CARBIDOPA/LEVODOPA 25/100MG TAB PO SCH ×6 (05:56→20:43)
[2018-05-31 06:20] LABS: BUN Creatinine Ratio 9.5 (10-20); Calcium 7.9 mg/dl (8.5-10.1); Est GFR (African American) 115.6; Est GFR (Non-African American) 99.7; Magnesium 1.8 mg/dl (1.8-2.4)
[2018-05-31] MEDS: POLYETHYLENE (MIRALAX) 17 GM PACK PO SCH ×3 (07:36→20:40)
[2018-05-31] MEDS: CYANOCOBALAMIN 500 MCG TABLET (VITAMIN B-12) PO SCH (07:36)
[2018-05-31] MEDS: BENZTROPINE MESYLATE 0.5 MG TAB PO SCH ×2 (07:36→20:44)
--- NOTE | 2018-05-31 14:28 | XRay Report ---
XR KUB CLINICAL HISTORY: 72 years-old Male presenting with recent obstipation, interval change. TECHNIQUE: Single supine view of the abdomen was obtained. COMPARISON: CT from 05/17/2018 and plain radiograph from 05/29/2018. FINDINGS: Marked stool burden throughout dilated colon. No gross pneumoperitoneum. Allowing for bowel gas and stool, no calcifications to suggest nephrolithiasis. IVC filter projects a t the level of L4. Total bilateral hip arthroplasties. Multilevel degenerative changes of the spine. Possible underlying osteopenia. IMPRESSION: 1. Persistent marked stool burden throughout the colon consistent with obstipation. Electronically signed by: Fili Flowers M.D. 05/31/2018 2:27 PM
[2018-05-31] MEDS ORDERED: BISACODYL 5 MG TABEC PO ONE (17:37)
--- NOTE | 2018-05-31 19:10 | Hospitalist Progress Note ---
Date of Service May 31, 2018 Assessment & Plan (1) Constipation: His recent "diarrhea" was likely overflow stooling from severe constipation. He has copious stool on the 05/29 KUB, and a repeat KUB today shows ongoing severe constipation. Continue miralax. Will give additional dose of dulcolax today. Will need bowel regimen at discharge. Present on Admission?: Yes (2) C. difficile diarrhea: RULED OUT. C. diff toxin NEGATIVE. Antibiotics d/c. (3) Parkinsons disease: continue outpatient meds. continue PT, OT. transferring to SNF for rehab. (4) BPH (benign prostatic hyperplasia): cont finasteride & flomax. currently has condom catheter in place and he requests that he d/c to SNF with such. likely has urinary incontinence due to his PD. (5) Generalized weakness: due to PD. PT, OT, and will go to SNF for rehab. (6) Chronic diastolic heart failure: compensated. (7) Ventral hernia: reducible, recent abd/pelvic CT w/o obstruciton. (8) S/P IVC filter: h/o DVT. s/p IVC filter in place. also remains on xarelto 20mg daily. INR likely elevated - mildly - due to xarelto. (9) DVT prophylaxis: xarelto IVC filter patient likely d/c to SNF in AM Subjective patient states he had a good breakfast and felt well then ate lunch and didn't feel well then had 2 bowel movements and felt better after that he reported he did not feel well enough to transfer to SNF today requested d/c tomorrow AM Constitutional: no fever and no chills Respiratory: no cough and no dyspnea Cardiovascular: no chest pain Gastrointestinal: + nausea and + constipation; no abdominal pain, no vomiting and no diarrhea/loose stools Physical Exam 2 Vital Signs (Past 24 Hours): Last Vital Signs Temp 36.8 C 05/31/18 07:30 Pulse 72 05/31/18 07:30 Resp 18 05/31/18 07:30 BP 106/70 05/31/18 07:30 Pulse Ox 92 05/31/18 07:30 Constitutional: no acute distress masked facies from PD; tremors of facial muscles; speech difficult to understand at times ENMT: external ear and nose normal, oropharynx normal Respiratory: normal respiratory effort, lungs clear to auscultation Cardiovascular: RRR, no murmur, no edema Heart Sounds: normal S1 and normal S2 Vessels: posterior tibial pulses present and dorsalis pedis pulses present; no JVD Gastrointestinal (Abdomen): normal bowel sounds, soft, nontender, no hepatosplenomegaly Percussion/Palpation: + hernia (ventral - reducible ) Neurologic: resting tremors, masked facies Psychiatric: Orientation: alert and oriented x 3 Results & Data Laboratory Results Laboratory Results - last 24 hr 05/31/18 05/31/18 05:18 05:18 WBC 5.90 RBC 4.22 L Hgb 13.2 L Hct 39.1 L MCV 92.7 MCH 31.3 MCHC 33.8 RDW Std Deviation 46.9 H RDW Coeff of Ruth 13.8 Plt Count 233 MPV 11.6 H Sodium 136 Potassium 4.0 Chloride 102 Carbon Dioxide 28 Anion Gap 6.0 BUN 6 L Creatinine 0.60 Est Cr Clr Drug Dosing 124.0 Est GFR ( Amer) 115.6 Est GFR (Non-Af Amer) 99.7 BUN/Creatinine Ratio 9.5 L Glucose 94 Calcium 7.9 L Magnesium 1.8 Diagnostic Findings KUB x-ray -- IMPRESSION: 1. Persistent marked stool burden throughout the colon consistent with obstipation. _ (1) Constipation Constipation type: other constipation type Qualified Code(s): K59.09 - Other constipation (2) BPH (benign prostatic hyperplasia) Lower urinary tract symptom presence: symptoms present Lower urinary tract symptom detail: unspecified Qualified Code(s): N40.1 - Benign prostatic hyperplasia with lower urinary tract symptoms (3) Ventral hernia Obstruction and gangrene presence: without obstruction or gangrene Qualified Code(s): K43.9 - Ventral hernia without obstruction or gangrene
[2018-05-31] MEDS: TAMSULOSIN HCL 0.4 MG CAP PO SCH (20:43)
[2018-05-31] MEDS: RIVAROXABAN 20 MG TAB PO SCH (20:43)
[2018-05-31] MEDS: ROPINIROLE HCL 1 MG TABLET PO SCH (20:44)
[2018-05-31] MEDS: CARBIDOPA/LEVODOPA 50/200MG EXT REL TAB PO SCH (20:44)
[2018-06-01] MEDS: CARBIDOPA/LEVODOPA 25/100MG TAB PO SCH ×3 (05:57→11:39)
[2018-06-01] MEDS: BENZTROPINE MESYLATE 0.5 MG TAB PO SCH (07:05)
[2018-06-01] MEDS: CYANOCOBALAMIN 500 MCG TABLET (VITAMIN B-12) PO SCH (07:05)
[2018-06-01] MEDS: POLYETHYLENE (MIRALAX) 17 GM PACK PO SCH (07:06)
[2018-06-01] MEDS ORDERED: SENNA 8.6 MG TAB PO SCH (09:00)
--- NOTE | 2018-06-07 21:43 | Discharge Summary ---
Date of Service date of admission - May 28, 2018 date of discharge - June 01, 2018 Admission HPI Per Admitting Provider 72 y/o Male with Hx Parkinson's disease, DVT/PE, and BPH. The pt has had diarrhea for a 2 month period following an episode of C diff. This recently worsened and recurrence was confirmed by his primary MD 05/25. He was having persistent profuse diarrhea and has become dehydrated as a result. He does not report abdominal pain or fevers. The pt is unable to adequately care for himself under the circumstances and may need placement upon discharge. He was slightly hypotensive on arrival to the ER but responded quickly to IV fluids. Principal Diagnosis constipation with likely overflow stooling Discharge Exam Constitutional no acute distress ENMT external ear and nose normal, oropharynx normal Respiratory normal respiratory effort, lungs clear to auscultation Cardiovascular RRR, no murmur, no edema Heart Sounds: normal S1 and normal S2 Vessels: posterior tibial pulses present and dorsalis pedis pulses present; no JVD Gastrointestinal (Abdomen) normal bowel sounds, soft, nontender, no hepatosplenomegaly Percussion/Palpation: + hernia (ventral - reducible ) Neurologic speech difficult to understand at times; typical parkinsonian features and masked facies Psychiatric Orientation: alert and oriented x 3 Discharge Data Allergies Allergy/AdvReac Type Severity Reaction Status Date / Time hydromorphone Allergy Unknown hives on Verified 05/28/18 12:35 trunk pollen extracts Allergy Unknown SNEEZING,RUNNY Verified 05/28/18 12:35 NOSE mite-Dermatophagoides AdvReac Intermediate Sneeze, Verified 05/28/18 12:35 farinae, ying cough Poison Nguyen Extract/Poison Allergy Severe rash, itchy Uncoded 05/28/18 12:35 [place] Extra Consultations general surgery gastroenterology PT, OT Procedures Performed chest x-ray -- normal. KUB x-rays -- severe constipation. Hospital Course (1) Constipation: His recent "diarrhea" was likely overflow stooling from severe constipation. A CT of the abdomen & pelvis on 05/17/18 demonstrated significant stool loading, and on 05/29/18 a KUB x-ray also showed severe constipation. He was given a bowel regimen during this stay, and his stools began to normalize with such. He was seen by both general surgery and gastroenterology during the hospitalization. Both advised bowel regimen. His ventral hernia was felt to be stable as well. (2) C. difficile diarrhea: History of such. Active disease was RULED OUT during the admission . C. diff PCR was positive but toxin test was NEGATIVE. This is consistent with a carrier state. Antibiotics were deferred. (3) Parkinsons disease: He will continue his usual outpatient meds. He is in need of PT, OT. He is transferring to SNF for rehab. (4) BPH (benign prostatic hyperplasia): Remains on finasteride & flomax. The patient has significant urinary incontinence and requested that a condom catheter remain in place. (5) Generalized weakness: Due to parkinson's disease and recurrent illness. Transferring to SNF for rehab. (6) Chronic diastolic heart failure: compensated while hospitalized. (7) Ventral hernia: reducible, recent abd/pelvic CT w/o obstruciton. (8) S/P IVC filter: h/o DVT. s/p IVC filter in place. also remains on xarelto 20mg daily. (9) DVT prophylaxis: xarelto IVC filter (10) History of UTI: patient had a UTI in early May 2018. repeat urine culture this stay along with blood cultures were negative. Total Time Total Time Spent Total Time Spent (In Minutes): 40 Total Time Includes: Examination of the Patient, Discharge Planning and Medication Reconciliation Discharge Plan Discharge Items Patient Disposition: Transfer Custodial Fac Reason For Visit: Abdominal pain and dehydration Discharge Diagnosis: severe constipation - improved. NO EVIDENCE OF C DIFF INFECTION. Parkinson's disease - severe. Discharge Goals: Diagnostic testing and Therapeutic intervention Activity: Resume your previous activity Non-emergency contact: Primary Care Provider and Transformation Consultant Call non-emergency contact if: you have any medication questions, your symptoms worsen, your pain is not controlled, your pain is worsening, your pain is unusual for you, your pain is concerning for you and your temperature is above 100.5 Diet: Regular Diet Texture: Dental soft (bite-sized) Liquid Consistency: [place] thick Addtl Provider Instructions: From Dylan Hayes - Hospitalist - 1. Please order PT, OT, and speech therapy at [facility] - diagnosis - severe parkinson's disease. 2. Repeat BMP, magnesium level in 1 week for stability. 3. Follow-up - * see [facility] Gastroenterology in 1-2 weeks for follow-up of constipation issues * see [facility] Urology in 1-2 weeks for BPH * see Neurology within 1 month for parkinson's disease 4. Return to [facility] if - * fevers over 100.5 degrees * worsening shortness of breath or chest pain * worsening abdominal pain, vomiting, or constipation * any other concerns 5. If patient desires can continue a condom catheter due to significant urinary incontinence Prescriptions: New sennosides [Senokot] 8.6 mg Tablet 17.2 mg PO QAM Qty: 60 RF: 0 acetaminophen [Mapap (acetaminophen)] 325 mg Tablet 650 mg PO Q4H PRN (Reason: fever or pain) Qty: 30 RF: 0 polyethylene glycol 3350 [Miralax] 17 gram Powder In Packet 17 g PO BID Qty: 1 RF: 2 ondansetron 8 mg tablet,disintegrating 8 mg PO Q6H PRN (Reason: nausea and vomiting) Qty: 20 RF: 0 nystatin 100,000 unit/gram powder 1 appln TOP TID Qty: 60 RF: 0 Continue dutasteride 0.5 mg capsule 0.5 mg PO QAM RF: 0 carbidopa-levodopa 50-200 mg tablet extended release 1 tab PO HS RF: 0 pimavanserin 34 mg capsule 34 mg PO QAM RF: 0 benztropine 0.5 mg tablet 0.5 mg PO BID RF: 0 tamsulosin 0.4 mg capsule 0.4 mg PO HS RF: 0 ropinirole 0.5 mg tablet 1 mg PO HS RF: 0 carbidopa-levodopa 25-100 mg tablet 2 tab PO Q3H RF: 0 rivaroxaban 20 mg tablet 20 mg PO HS RF: 0 ascorbic acid (vitamin C) [Vitamin C] 1,000 mg Tablet 1,000 mg PO QAM RF: 0 cyanocobalamin (vitamin B-12) [Vitamin B-12] 1,000 mcg Tablet 1,000 mcg PO QAM RF: 0 vitamin E 400 unit Capsule 400 unit PO QAM RF: 0 cholecalciferol (vitamin D3) [Vitamin D3] 2,000 unit Tablet 2,000 unit PO QAM RF: 0 Discontinued sulfamethoxazole-trimethoprim 800-160 mg tablet 1 tab PO BID RF: 0 vancomycin 125 mg capsule 125 mg PO QID RF: 0 Stand-Alone Forms: [facility] Discharge Orders: Discharge Order (Routine); Ordered 06/01/18 Ordered By: Dylan Hayes Skilled Items Patient informed of condition?: Yes DNR: No Discharge Level of Care: Skilled Communicable Disease: No Discharge Prognosis: Stable Admission Data Admit Date/Time: 05/28/18 12:46 Attending Provider: Dylan Hayes Admit Provider: Juno Roland Primary Care Provider: Fili Early Other Providers: Zehra Cooper ; Carissa Castillo ; Nic Redd ; Kelle Enriquez Service: Medical Other Interventions: Discharge Summary Assessment (RN) Last Done: 06/01/18 14:10 Pending Studies at Discharge: No DC Date/Time DO NOT enter until pt leaves facility: 06/01/18 14:30
== END 2018-06-01 14:30 | DRG 392 ==
LOC: ED 10:46 → 4W 12:46 → SUATTDRO 12:46 → 4W 13:46

== ENCOUNTER 2018-07-20 00:06 | Inpatient (IN) ==
[2018-07-20] MEDS ORDERED: SODIUM CHLORIDE 0.9% 1000ML 1,000 ML IV STA (00:23)
[2018-07-20 00:37] LABS: Basophils # (auto) 0.02 K/uL (0-0.2); Basophils % (auto) 0.2 %; Eosinophils # (auto) 0.04 K/uL (0-0.5); Eosinophils % (auto) 0.5 %; Hematocrit (blood only) 36.8 % (42-52); Hemoglobin 12.5 g/dL (14.0-18.0); Immature Granulocytes # (auto) 0.04 K/uL (0.00-0.02); Immature Granulocytes % (auto) 0.5 %; Lymphocytes # (auto) 1.25 K/uL (1.2-3.4); Lymphocytes % (auto) 14.5 %; Mean Corpuscular Volume 89.1 fL (80-100); Mean Platelet Volume 12.1 fL (7.4-10.4); Monocytes # (auto) 1.71 K/uL (0.11-0.59); Monocytes % (auto) 19.8 %; Neutrophils # (auto) 5.58 K/uL (1.4-6.5); Neutrophils % (auto) 64.5 %; Platelet Count 191 K/uL (130-400); RDW Standard Deviation 49.2 fL (36.4-46.3); Red Blood Count 4.13 M/uL (4.7-6.1); White Blood Count 8.64 K/uL (4.8-10.8)
[2018-07-20 00:51] LABS: INR 1.2 (0.9-1.1); Partial Thromboplastin Ratio 1.3; Partial Thromboplastin Time 35.9 Seconds (21.0-31.0); Prothrombin Time 11.9 Seconds (9.0-12.0)
[2018-07-20 00:55] LABS: Alanine Aminotransferase < 6 U/L (12-78); Albumin Level 2.3 gm/dl (3.4-5.0); Aspartate Aminotransferase 8 U/L (15-37); BUN Creatinine Ratio 23.5 (10-20); Blood Urea Nitrogen 16 mg/dl (7-18); Calcium 8.2 mg/dl (8.5-10.1); Carbon Dioxide 28 mmol/L (21-32); Chloride 107 mmol/L (98-107); Est GFR (African American) 110.5; Est GFR (Non-African American) 95.3; Glucose 98 mg/dl (70-99); Potassium 3.2 mmol/L (3.5-5.1); Sodium 141 mmol/L (136-145)
[2018-07-20 00:57] LABS: Albumin Globulin Ratio 0.5 (0.9-2); Alkaline Phosphatase 84 U/L (45-117); Bilirubin,Total 0.5 mg/dl (0.2-1); Globulin 4.6 gm/dl (2.5-4.0); Total Protein 6.9 gm/dl (6.4-8.2)
[2018-07-20] MEDS ORDERED: VANCOMYCIN HCL 1,750 MG in SODIUM CHLORIDE 0.9% 500 ML IV ONE (01:12)
[2018-07-20] MEDS ORDERED: VANCOMYCIN CONSULT ACTIVE PRN (01:12)
[2018-07-20] MEDS ORDERED: VANCOMYCIN CONSULT ACTIVE ONE (01:12)
[2018-07-20] MEDS ORDERED: CEFEPIME 1,000 MG in SYRINGE 0 ML IV STA (01:12)
[2018-07-20 01:51] LABS: Appearance Urine Turbid (Clear); Bilirubin Urine Negative (Negative); Blood Urine Trace (Negative); Color Urine Dark Yellow; Glucose Urine UA Negative (Negative); Ketones Urine Trace (Negative); Leukocyte Esterase Urine 3+ (Negative); Nitrite Urine Negative (Negative); Protein Urine 1+ (Negative); Specific Gravity Urine 1.021 (1.000-1.030); Urobilinogen Urine Negative (Negative); WBC Urine Automated >30 /hpf (0-5); pH Urine 5.5 (4.5-7.5)
[2018-07-20] MEDS ORDERED: IOVERSOL 100ml IV PRN (01:59)
[2018-07-20] MEDS ORDERED: SODIUM CHLORIDE 0.9% 1000ML 1,000 ML IV ONE (02:16)
[2018-07-20 02:17] LABS: Bacteria Urine Automated 1+ (Negative); Cast Urine Automated 0 /lpf (0-5)
--- NOTE | 2018-07-20 05:02 | Emergency Department Note ---
Entered by Boris Downing acting as a scribe for History of Present Illness General Chief complaint: Illness Time Seen by Provider: 07/20/18 00:10 Source: patient, RN notes reviewed and old records reviewed Limitations: altered mental status History of Present Illness Provider complaint: Altered mental status Onset (ago): day(s) (this past ) The patient is a 72 year old male who presents to the Emergency Room secondary to a change in mental status that occurred this past weekend. Per nursing notes, the patient is a resident of [facility] and has been febrile and has had a change in mental status. The patient denies any pain, trouble breathing, or vomiting, but admits to experiencing diarrhea. He denies seeing any blood in his stool. Per nursing notes, the patient has been on oxygen with sats ranging around 88%. He does not chronically wear oxygen. Per the patient's medical records, the patient has a history of pulmonary embolisms, UTI's, and C. Diff. The patient's HPI is limited secondary to altered mental status. Home Medications Home Medications Medication Instructions Recorded Confirmed Type benztropine 0.5 mg PO AMHS 02/05/18 07/20/18 History carbidopa-levodopa 2 tab PO Q3H 02/05/18 07/20/18 History rivaroxaban 20 mg PO HS 02/05/18 07/20/18 History tamsulosin 0.4 mg PO QPM 02/05/18 07/20/18 History carbidopa-levodopa 1 tab PO HS 03/26/18 07/20/18 History dutasteride 0.5 mg PO QAM 03/26/18 07/20/18 History pimavanserin 34 mg PO QAM 04/26/18 07/20/18 History ascorbic acid (vitamin C) [Vitamin 1,000 mg PO QAM 05/17/18 07/20/18 History C] cholecalciferol (vitamin D3) 2,000 unit PO QAM 05/17/18 07/20/18 History [Vitamin D3] cyanocobalamin (vitamin B-12) 1,000 mcg PO QAM 05/17/18 07/20/18 History [Vitamin B-12] acetaminophen [Mapap 650 mg PO Q4H PRN #30 tab 06/01/18 07/20/18 Rx (acetaminophen)] ondansetron 8 mg PO Q6H PRN #20 tab 06/01/18 07/20/18 Rx sennosides [Senokot] 17.2 mg PO QAM #60 tab 06/01/18 07/20/18 Rx ropinirole 1 mg PO HS 06/14/18 07/20/18 History nitrofurantoin 20 ml PO AMHS 07/20/18 07/20/18 History polyethylene glycol 3350 [Miralax] 17 g PO QAM 07/20/18 07/20/18 History Allergies Allergy/AdvReac Type Severity Reaction Status Date / Time hydromorphone Allergy Unknown hives on Verified 07/20/18 03:13 trunk pollen extracts Allergy Unknown SNEEZING,RUNNY Verified 07/20/18 03:13 NOSE stanozolol Allergy Unknown Unknown Verified 07/20/18 03:13 mite-Dermatophagoides AdvReac Intermediate Sneeze, Verified 07/20/18 03:13 farinae, ying cough Poison Nguyen Extract/Poison Allergy Severe rash, itchy Uncoded 07/20/18 03:13 [place] Extra Past Med/Surg History Medical History Hernia, abdominal Parkinson disease (Chronic) DJD (degenerative joint disease) of hip (Resolved 12/28/13) Leukocytosis (Resolved) Bilateral pulmonary embolism Right knee DJD Anemia Benign prostatic hyperplasia with lower urinary tract symptoms Generalized muscle weakness Surgical History History of appendectomy History of bilateral hip replacements History of colectomy sigmoid History of colonoscopy History of open reduction and internal fixation (ORIF) procedure left thigh femur fx repair History of total knee arthroplasty right Status post insertion of inferior vena caval filter 11/2017 Family History Other Family history unknown Social History Preferred Language: Setswana Communication Ability: Effective Beliefs That Will Affect Care: None marital status: Current Living Situation: [facility] current occupational status: retired Feels Safe at Home: Yes Smoking Status: Unknown if ever smoked Hx Alcohol Use: Yes Hx Substance Use: No Review of Systems ROS is limited secondary to altered mental status. Physical Exam Vital Signs Vital Signs - 24 hr 07/20/18 00:09 07/20/18 00:10 07/20/18 00:15 Temperature Temperature Source Sepsis Recent Fever Within 48 Hours Sepsis New/Unexplained Change in Mental Status Sepsis Action Taken by Nursing Pulse Rate 87 86 91 H Pulse Rate [Right Finger] Pulse Rate from SpO2 Sensor 86 84 79 Respiratory Rate 15 24 30 H Respiratory Effort / Characteristics Respiratory Depth Respiratory Pattern Blood Pressure 105/63 Blood Pressure [Left Arm] Blood Pressure Mean 77 Blood Pressure Mean [Left Arm] Blood Pressure Position Blood Pressure Position [Left Arm] Pulse Oximetry 89 L 91 93 Oxygen Delivery Method Room Air Oxygen Flow Rate 3 07/20/18 00:16 07/20/18 00:30 07/20/18 00:35 Temperature 37.2 C Temperature Source Oral Sepsis Recent Fever Within 48 Hours Yes Sepsis New/Unexplained Change in Mental Status Yes Sepsis Action Taken by Nursing No Action Required Pulse Rate 84 84 Pulse Rate [Right Finger] Pulse Rate from SpO2 Sensor 82 Respiratory Rate 15 22 Respiratory Effort / Characteristics Non-Labored Spontaneous Respiratory Depth Normal Respiratory Pattern Regular Blood Pressure 105/63 Blood Pressure [Left Arm] Blood Pressure Mean 77 Blood Pressure Mean [Left Arm] Blood Pressure Position Lying Blood Pressure Position [Left Arm] Pulse Oximetry 89 L 93 93 Oxygen Delivery Method Room Air Nasal Cannula Nasal Cannula Oxygen Flow Rate 3 3 07/20/18 00:45 07/20/18 01:00 07/20/18 01:07 Temperature Temperature Source Sepsis Recent Fever Within 48 Hours Sepsis New/Unexplained Change in Mental Status Sepsis Action Taken by Nursing Pulse Rate 73 87 Pulse Rate [Right Finger] Pulse Rate from SpO2 Sensor 86 78 Respiratory Rate 27 H 21 Respiratory Effort / Characteristics Respiratory Depth Respiratory Pattern Blood Pressure Blood Pressure [Left Arm] Blood Pressure Mean Blood Pressure Mean [Left Arm] Blood Pressure Position Blood Pressure Position [Left Arm] Pulse Oximetry 92 94 89 L Oxygen Delivery Method Room Air Nasal Cannula Oxygen Flow Rate 3 3 0 07/20/18 01:10 07/20/18 01:15 07/20/18 01:30 Temperature Temperature Source Sepsis Recent Fever Within 48 Hours Sepsis New/Unexplained Change in Mental Status Sepsis Action Taken by Nursing Pulse Rate 86 87 82 Pulse Rate [Right Finger] Pulse Rate from SpO2 Sensor 75 70 83 Respiratory Rate 22 22 Respiratory Effort / Characteristics Respiratory Depth Respiratory Pattern Blood Pressure 105/59 L 101/51 L 96/60 L Blood Pressure [Left Arm] Blood Pressure Mean 74 67 72 Blood Pressure Mean [Left Arm] Blood Pressure Position Blood Pressure Position [Left Arm] Pulse Oximetry 94 93 95 Oxygen Delivery Method Nasal Cannula Oxygen Flow Rate 3 3 3 07/20/18 02:00 07/20/18 02:03 07/20/18 02:15 Temperature Temperature Source Sepsis Recent Fever Within 48 Hours Sepsis New/Unexplained Change in Mental Status Sepsis Action Taken by Nursing Pulse Rate 78 71 Pulse Rate [Right Finger] 76 Pulse Rate from SpO2 Sensor 71 72 Respiratory Rate 18 14 23 Respiratory Effort / Characteristics Respiratory Depth Respiratory Pattern Blood Pressure 99/57 L 103/60 Blood Pressure [Left Arm] 99/57 L Blood Pressure Mean 71 74 Blood Pressure Mean [Left Arm] 71 Blood Pressure Position Blood Pressure Position [Left Arm] Lying Pulse Oximetry 93 93 Oxygen Delivery Method Nasal Cannula Nasal Cannula Oxygen Flow Rate 3 3 07/20/18 02:30 07/20/18 02:45 07/20/18 03:00 Temperature Temperature Source Sepsis Recent Fever Within 48 Hours Sepsis New/Unexplained Change in Mental Status Sepsis Action Taken by Nursing Pulse Rate 73 71 70 Pulse Rate [Right Finger] Pulse Rate from SpO2 Sensor Respiratory Rate 16 16 Respiratory Effort / Characteristics Respiratory Depth Respiratory Pattern Blood Pressure 106/61 102/59 L 105/61 Blood Pressure [Left Arm] Blood Pressure Mean 76 73 75 Blood Pressure Mean [Left Arm] Blood Pressure Position Blood Pressure Position [Left Arm] Pulse Oximetry Oxygen Delivery Method Oxygen Flow Rate 07/20/18 03:15 07/20/18 03:30 07/20/18 03:38 Temperature 37.2 C Temperature Source Oral Sepsis Recent Fever Within 48 Hours Sepsis New/Unexplained Change in Mental Status Sepsis Action Taken by Nursing Pulse Rate 69 68 Pulse Rate [Right Finger] Pulse Rate from SpO2 Sensor 69 68 Respiratory Rate 21 22 Respiratory Effort / Characteristics Respiratory Depth Respiratory Pattern Blood Pressure 105/62 99/66 L Blood Pressure [Left Arm] Blood Pressure Mean 76 77 Blood Pressure Mean [Left Arm] Blood Pressure Position Blood Pressure Position [Left Arm] Pulse Oximetry 95 95 Oxygen Delivery Method Nasal Cannula Nasal Cannula Oxygen Flow Rate 3 3 07/20/18 03:45 07/20/18 04:00 Temperature Temperature Source Sepsis Recent Fever Within 48 Hours Sepsis New/Unexplained Change in Mental Status Sepsis Action Taken by Nursing Pulse Rate 69 64 Pulse Rate [Right Finger] Pulse Rate from SpO2 Sensor 69 63 Respiratory Rate 18 18 Respiratory Effort / Characteristics Respiratory Depth Respiratory Pattern Blood Pressure 107/64 Blood Pressure [Left Arm] Blood Pressure Mean 78 Blood Pressure Mean [Left Arm] Blood Pressure Position Blood Pressure Position [Left Arm] Pulse Oximetry 95 Oxygen Delivery Method Nasal Cannula Oxygen Flow Rate 3 GENERAL: alert, ill-appearing, well nourished, no distress, non-toxic, appears older than stated age. EYE EXAM: normal conjunctiva, PERRL and EOM's grossly intact OROPHARYNX: no exudate, no erythema, lips, buccal mucosa, and tongue normal and moist, mucous membranes are dry. NECK: supple, no nuchal rigidity, no adenopathy, non-tender LUNGS: Decreased breath sounds. Rhonchi in left base. Normal chest wall mec hanics HEART: no murmurs, S1 normal and S2 normal ABDOMEN: abdomen soft, non-tender, normo-active bowel sounds, no masses, no rebound or guarding, tympani to percussion. BACK: Back is symmetrical on inspection and there is no deformity, no midline tenderness, no CVA tenderness. SKIN: no rashes and no bruising UPPER EXTREMITIES: upper extremities are grossly normal. Normal pulses bilaterally. LOWER EXTREMITIES: 1+ edema bilaterally. Over right knee there is a well healed vertical midline incision consistent with prior knee replacement. Normal pulses. NEURO EXAM: Normal sensorium, cranial nerves II-XII grossly intact, generalized weakness. No facial droop. Course 0019: The patient was evaluated in room B10, and a complete history and physical examination were performed. 0219: I reevaluated the patient and there is no change in his condition. A review of the patient's paperwork from [facility] states that the patient was started on Macrobid two days ago for a UTI. Paperwork also states that the culture grew out E. coli. Patient is listed as a full code. 0225: I reviewed the patient's case with [facility]. He will evaluate the patient for further management. Consultations [facility]: 02:25 Administered Medications Ioversol (Optiray 320 100ml) 100 ml IV ONCE PRN PRN Reason: Interaction Checking Stop: 07/24/18 01:58 Last Admin: 07/20/18 01:59 Dose: 93 ml Documented by: [id number] Discontinued Medications Sodium Chloride (Nss 1000ml) 1,000 mls @ 999 mls/hr IV .Q1H1M STA Stop: 07/20/18 01:23 Last Infusion: 07/20/18 01:20 Dose: 0 mls/hr Documented by: [id number] Infusion: 07/20/18 01:15 Dose: 0 mls/hr Documented by: [id number] Admin: 07/20/18 00:37 Dose: 999 mls/hr Documented by: [id number] Vancomycin HCl 1,750 mg/ (Sodium Chloride) 535 mls @ 200 mls/hr IV NOW ONE Stop: 07/20/18 03:52 Last Admin: 07/20/18 02:02 Dose: 200 mls/hr Documented by: [id number] Cefepime HCl 1,000 mg/ Syringe 11.3 mls @ 5.5 mls/min IV NOW STA Stop: 07/20/18 01:14 Last Admin: 07/20/18 02:02 Dose: 5.5 mls/min Documented by: [id number] Sodium Chloride (Nss 1000ml) 1,000 mls @ 999 mls/hr IV .Q1H1M ONE Stop: 07/20/18 03:16 Last Infusion: 07/20/18 03:13 Dose: 0 mls/hr Documented by: [id number] Admin: 07/20/18 02:21 Dose: 999 mls/hr Documented by: [id number] Miscellaneous Information (Consult) 1 ea N/A UD ONE Stop: 07/20/18 01:13 Last Admin: 07/20/18 02:03 Dose: Not Given Documented by: [id number] Medical Decision Making Differential Diagnosis Differential diagnosis: Etiologies such as metabolic, infection, hypo/hyperglycemia, electrolyte abnormalities, cardiac sources, intracerebral event, toxicologic, neurologic, viral syndrome, otitis, pharyngitis, pneumonia, influenza, meningitis, urinary tract infection, sepsis, bacteremia, as well as others were entertained. Medical Records Attestation: I reviewed the patient's medical records. Home Medications Current Medication List: was personally reviewed by me Laboratory Data Attestation: I reviewed the patient's lab results. Result diagrams: 07/20/18 00:22 07/20/18 00:22 Lab Results 07/20/18 07/20/18 07/20/18 Range/Units 00:22 00:22 00:22 WBC 8.64 (4.8-10.8) K/uL RBC 4.13 L (4.7-6.1) M/uL Hgb 12.5 L (14.0-18.0) g/dL Hct 36.8 L (42-52) % MCV 89.1 (80-100) fL MCH 30.3 (25-34) pg MCHC 34.0 (32-36) g/dL RDW Std Deviation 49.2 H (36.4-46.3) fL RDW Coeff of Ruth 15.0 H (11.5-14.5) % Plt Count 191 (130-400) K/uL MPV 12.1 H (7.4-10.4) fL Immature Gran % (Auto) 0.5 % Neut % (Auto) 64.5 % Lymph % (Auto) 14.5 % [place] % (Auto) 19.8 % Eos % (Auto) 0.5 % Baso % (Auto) 0.2 % Immature Gran # (Auto) 0.04 H (0.00-0.02) K/uL Neut # (Auto) 5.58 (1.4-6.5) K/uL Lymph # (Auto) 1.25 (1.2-3.4) K/uL [place] # (Auto) 1.71 H (0.11-0.59) K/uL Eos # (Auto) 0.04 (0-0.5) K/uL Baso # (Auto) 0.02 (0-0.2) K/uL PT 11.9 (9.0-12.0) Seconds INR 1.2 H (0.9-1.1) APTT 35.9 H (21.0-31.0) Seconds PTT Ratio 1.3 Sodium (136-145) mmol/L Potassium (3.5-5.1) mmol/L Chloride (98-107) mmol/L Carbon Dioxide (21-32) mmol/L Anion Gap (3-11) BUN (7-18) mg/dl Creatinine (0.6-1.4) mg/dl Est Cr Clr Drug Dosing Est GFR ( Amer) Est GFR (Non-Af Amer) BUN/Creatinine Ratio (10-20) Glucose (70-99) mg/dl POC Lactic Acid Tian (0.90-1.70) mmol/L Calcium (8.5-10.1) mg/dl Total Bilirubin (0.2-1) mg/dl AST (15-37) U/L ALT (12-78) U/L Alkaline Phosphatase (45-117) U/L Total Protein (6.4-8.2) gm/dl Albumin (3.4-5.0) gm/dl Globulin (2.5-4.0) gm/dl Albumin/Globulin Ratio (0.9-2) Procalcitonin 0.07 (0-0.5) ng/ml Urine Color Urine Appearance (Clear) Urine pH (4.5-7.5) Ur Specific Arma (1.000-1.030) Urine Protein (Negative) Urine Glucose (UA) (Negative) Urine Ketones (Negative) Urine Blood (Negative) Urine Nitrite (Negative) Urine Bilirubin (Negative) Urine Urobilinogen (Negative) Ur Leukocyte Esterase (Negative) Urine WBC (Auto) (0-5) /hpf Urine RBC (Auto) (0-4) /hpf U Hyaline Cast (Auto) (0-5) /lpf U Epithel Cells (Auto) (0-5) /lpf Urine Bacteria (Auto) (Negative) Urine Yeast 07/20/18 07/20/18 07/20/18 Range/Units 00:22 00:32 01:39 WBC (4.8-10.8) K/uL RBC (4.7-6.1) M/uL Hgb (14.0-18.0) g/dL Hct (42-52) % MCV (80-100) fL MCH (25-34) pg MCHC (32-36) g/dL RDW Std Deviation (36.4-46.3) fL RDW Coeff of Ruth (11.5-14.5) % Plt Count (130-400) K/uL MPV (7.4-10.4) fL Immature Gran % (Auto) % Neut % (Auto) % Lymph % (Auto) % [place] % (Auto) % Eos % (Auto) % Baso % (Auto) % Immature Gran # (Auto) (0.00-0.02) K/uL Neut # (Auto) (1.4-6.5) K/uL Lymph # (Auto) (1.2-3.4) K/uL [place] # (Auto) (0.11-0.59) K/uL Eos # (Auto) (0-0.5) K/uL Baso # (Auto) (0-0.2) K/uL PT (9.0-12.0) Seconds INR (0.9-1.1) APTT (21.0-31.0) Seconds PTT Ratio Sodium 141 (136-145) mmol/L Potassium 3.2 L (3.5-5.1) mmol/L Chloride 107 (98-107) mmol/L Carbon Dioxide 28 (21-32) mmol/L Anion Gap 6.0 (3-11) BUN 16 (7-18) mg/dl Creatinine 0.67 (0.6-1.4) mg/dl Est Cr Clr Drug Dosing Not Reportable Est GFR ( Amer) 110.5 Est GFR (Non-Af Amer) 95.3 BUN/Creatinine Ratio 23.5 H (10-20) Glucose 98 (70-99) mg/dl POC Lactic Acid Tian 0.72 L (0.90-1.70) mmol/L Calcium 8.2 L (8.5-10.1) mg/dl Total Bilirubin 0.5 (0.2-1) mg/dl AST 8 L (15-37) U/L ALT < 6 L (12-78) U/L Alkaline Phosphatase 84 (45-117) U/L Total Protein 6.9 (6.4-8.2) gm/dl Albumin 2.3 L (3.4-5.0) gm/dl Globulin 4.6 H (2.5-4.0) gm/dl Albumin/Globulin Ratio 0.5 L (0.9-2) Procalcitonin (0-0.5) ng/ml Urine Color Dark Yellow Urine Appearance Turbid H (Clear) Urine pH 5.5 (4.5-7.5) Ur Specific Arma 1.021 (1.000-1.030) Urine Protein 1+ H (Negative) Urine Glucose (UA) Negative (Negative) Urine Ketones Trace H (Negative) Urine Blood Trace H (Negative) Urine Nitrite Negative (Negative) Urine Bilirubin Negative (Negative) Urine Urobilinogen Negative (Negative) Ur Leukocyte Esterase 3+ H (Negative) Urine WBC (Auto) >30 H (0-5) /hpf Urine RBC (Auto) 10-30 H (0-4) /hpf U Hyaline Cast (Auto) 0 (0-5) /lpf U Epithel Cells (Auto) 5-10 H (0-5) /lpf Urine Bacteria (Auto) 1+ H (Negative) Urine Yeast Not Reportable Imaging Data Attestation: I personally reviewed and interpreted this imaging study as follows: My Impression: Single view Chest X-ray: Patient rotated. 1. No cardiomegaly. 2. No effusions. 3. Patchy interstitial marking noted bilateral cardiac border. 4. Prominent aortic knob. 5. No acute pulmonary edema. Worse compared to prior chest x-ray. Radiologist's Impression: Radiology results as stated below per my review and the radiologist's interpretation: CT ABDOMEN & PELVIS With Contrast: Stool throughout the colon. Nocolitis, bowel obstruction, diverticulitis or appendicitis. Heterogenous appearance of the left renal parenchyma. Cannot exclude pyleonephritis. No abscess. Mild left hydroureteronephrosis although the left distal ureter is not well demonstrated. Right kidney and collecting system are normal. Small left renal cyst. Bladder shows lightly prominent wall, but is otherwise unremarkable. There are implant device in place. Pancreas and gallbladder are unremarkable. No free air or free fluid. Subsegmental atelectasis at the left lower lobe. Radiologist: Delfino Mirza M.D. Study ready at 02:02 and initial results transmitted at 02:14. CT head: No acute intracranial hemorrhage, mass-effect or edema. No evidence of acute cortical stroke. Periventricular small vessel ischemic change. No midline shift or hydrocephalus. Diffuse parenchymal atrophy. Dense atherosclerotic calcifications of the carotid siphons and vertebrobasilar arteries. Air-fluid level involving left maxillary sinus and left sphenoid sinus. Correlate for acute sinusitis. Mastoid air cells are clear. Radiologist: Delfino Mirza MD STudy read at 04:25 and initial results transmitted at 04:45. ECG Data Attestation: I personally reviewed and interpreted this ECG as follows: Indication: other (illness) Rate (beats per minute): 89 Rhythm: sinus rhythm Findings: + other (normal axis, normal intervals) and + PVC; no acute ischemic change Blood Pressure Blood Pressure Findings: Normal blood pressure Blood Pressure Disposition: did not require urgent referral MDM Narrative Patient markedly ill-appearing here, and concern for possible risk of evolving sepsis given pneumonia on chest x-ray and urinary tract action. Possible component of failed outpatient treatment of the urinary tract infection. Patient afebrile here and hemodynamically stable. Patient's other labs reassuring including a lactic acid and pro-calcitonin. Patient does admit to diarrhea, and on review of EMR has previously had C. difficile. Patient denied any blood in the stool. CT of the abdomen and pelvis was otherwise unremarkable. Patient hydrated here, blood culture sent, and started on IV antibiotics. Patient kept on 2-3 L/min of nasal cannula which help maintain his oxygen saturations in the mid 90s as he was initially hypoxic on room air. Case discussed with hospitalist for additional evaluation and management. Impression & Plan Sepsis, Dehydration, Pneumonia, Urinary tract infection, Hypoxia, Diarrhea Discharge Plan Visit Data *Final* Discharge Date/Time: 07/20/18 04:10 Chief Complaint: Illness ED Provider: Marilee Holder Discharge Problem: Sepsis, Dehydration, Pneumonia, Urinary tract infection, Hypoxia, Diarrhea Patient Disposition: Admitted As Inpatient Discharge Instructions Interventions: ED Discharge Assessment Last Done: 07/20/18 04:10 Discharge Problem: Sepsis Qualifiers: Sepsis type: sepsis due to unspecified organism Qualified Code(s): A41.9 - Sepsis, unspecified organism Pneumonia Qualifiers: Pneumonia type: due to unspecified organism Laterality: unspecified laterality Lung location: unspecified part of lung Qualified Code(s): J18.9 - Pneumonia, unspecified organism Urinary tract infection Qualifiers: Urinary tract infection type: site unspecified Hematuria presence: without hematuria Qualified Code(s): N39.0 - Urinary tract infection, site not specified Diarrhea Qualifiers: Diarrhea type: unspecified type Qualified Code(s): R19.7 - Diarrhea, unspecified The scribe's documentation has been prepared under my direction and personally reviewed by me in its entirety. I confirm that the note above accurately reflects all work, treatment, procedures, and medical decision making performed by me.
--- NOTE | 2018-07-20 05:07 | History and Physical Report ---
DATE OF ADMISSION: 07/20/2018 CHIEF COMPLAINT: Confusion, fever. HISTORY OF PRESENT ILLNESS: This is a 72-year-old male with past medical history significant for Parkinson disease, history of DVT, PE, status post IVC filter, history of BPH, history of C. diff, history of chronic diastolic CHF, history of ventral hernia. Currently a resident of [facility]. The patient has dementia, oriented to name only as per the . He is on chopped diet and nectar thick liquids. Needs 2-people assistance for transfers from the bed to the wheelchair. The patient usually is confused, but lately getting more confused. He is threatening the staff that he is going to kill himself. He had a fever yesterday and then had a chest x-ray that was okay. He has no cough and he was found to have UTI and started Macrobid and today again he had a fever spike and getting more confused. That is why he was sent to the hospital. Whole [facility] residents were placed on Tamiflu and his doctor in the long term thought Tamiflu might be causing delirium and it was stopped today. As per nursing staff, no nausea, vomiting. There is chronic diarrhea, but that has improved lately. He did not complain of any pain. As per sometimes he recognizes her, sometimes he says that she is planning to kill him or leave him. He is getting somewhat paranoid lately. Currently, the patient is drowsy and sleeping. Moves extremities. Responds to touch stimuli. Could not get any review of systems from per the patient. ALLERGIES: HYDROMORPHONE. PAST MEDICAL HISTORY: As mentioned above. PAST SURGICAL HISTORY: Appendectomy, total hip arthroplasty. MEDICATIONS: The patient is on Tylenol 500 mg p.o. q. 4 hours p.r.n., vitamin C 1000 mg p.o. daily, Cogentin 0.5 mg p.o. daily, carbidopa/levodopa 25/100 one tablet 5 times daily, carbidopa/levodopa 50/200 one tablet at bedtime, vitamin D 2000 units daily, vitamin B12 1000 mcg daily, Avodart 0.5 mg p.o. daily, ferrous sulfate 325 mg p.o. daily, lactobacillus 1 capsule daily, Requip 0.5 mg p.o. b.i.d. FAMILY HISTORY: No family history on file. SOCIAL HISTORY: , but currently patient is a [facility] resident. No smoking history. No drug use. REVIEW OF SYSTEMS: As per HPI. Rest of the systems negative. PHYSICAL EXAMINATION: GENERAL: The patient is currently drowsy and sleeping. VITAL SIGNS: Temperature 37.2, pulse 71, respiratory rate 16, blood pressure 102/59, oxygen 93% on 3 liters. HEENT: No pallor, no icterus. Pupils equal and reactive to light. NECK: No JVD, no neck masses, no carotid bruits. CARDIOVASCULAR: S1, S2 heard, regular rate and rhythm, no murmur, no gallop. RESPIRATORY SYSTEM: Normal AP diameter. No accessory muscle use. No wheezing, no crackles. ABDOMEN: Soft, bowel sounds present. Ventral hernia seen. Nontender. No distention. CENTRAL NERVOUS SYSTEM: The patient is drowsy. Moves extremities to stimuli. EXTREMITIES: Pedal edema present, no erythema seen. LABORATORIES: WBC 8.6, hemoglobin 12.5, hematocrit 36.8, platelets 191. PT 11.9, INR 1.2, APTT 35.9. Sodium 141, potassium 3.2, chloride 107, bicarbonate 28, BUN 16, creatinine 0.6, serum glucose 98. Point of care lactic acid 0.7, calcium is 8.2, total bilirubin 0.5, AST 8, ALT less than 6, alkaline phosphatase 84. Procalcitonin 0.07. Urinalysis positive for leukocyte esterase. IMAGING DATA: Chest x-ray, questionable left lower lobe pneumonia. CT of abdomen and pelvis official reading pending. ASSESSMENT AND PLAN: This is a 72-year-old male with history of Parkinson's and dementia, who is a [facility] resident who presents with increasing confusion and fever. 1. Increasing confusion, most likely metabolic encephalopathy from fever. We will monitor. His fever and confusion could be most likely from urinary tract infection or possible pneumonia. Empirically started on IV cefepime and IV vancomycin in ER. Follow the cultures . MRSA swab. FLU PCR. Will continue iv cefepime for now. On IV fluids. Monitor for any volume overload. Suicidal ideation in intermediate. One to one. 2. Hypokalemia, we will replace. 3. Parkinson disease. Continue with the home Sinemet. 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 Continue home medications of benztropine and pimavanserin.. Will monitor . 5. PE/DVT s/p IVC filter, on Xarelto. 6. Restless leg syndrome , on Requip. 7. BPH,on avodart.. 8. Deep venous thrombosis prophylaxis, Xarelto. 9. Disposition: Closely monitor in the med/surg tele. 10. Code status. Full code as per my discussion with the . Patient wanted to be full code last time as per . PT/OT prior to discharge. Social service to help with discharge planning. Plan to discharge back to [facility] when stable. SERJIO
[2018-07-20] MEDS ORDERED: NITROGLYCERIN SL 0.4 MG/TAB TAB SL PRN (05:13)
[2018-07-20] MEDS ORDERED: ONDANSETRON INJ 2 MG/ML 2 ML VIAL IV PRN (05:13)
[2018-07-20] MEDS ORDERED: ACETAMINOPHEN 325 MG TAB PO PRN ×2 (05:13)
[2018-07-20] MEDS ORDERED: ONDANSETRON 8MG OD TAB PO PRN (05:13)
[2018-07-20] MEDS ORDERED: CEFEPIME CONSULT ACTIVE PRN (05:36)
[2018-07-20] MEDS: CARBIDOPA/LEVODOPA 25/100MG TAB PO SCH ×6 (06:05→20:12)
[2018-07-20] MEDS: SODIUM CHLORIDE 0.9% 1000ML 1,000 ML IV SCH ×2 (06:05→16:14)
--- NOTE | 2018-07-20 06:27 | CT Scan Report ---
CT head/brain wo con CT DOSE: 1228.53 mGy.cm HISTORY: Mental status change ams TECHNIQUE: Multiaxial CT images of the head were performed without the use of intravenous contrast. A dose lowering technique was utilized adhering to the principles of ALARA. Comparison: 04/13/2016 Findings: Mild mucosal thickening and air-fluid levels within the left maxillary and to a lesser exte nt sphenoid sinuses. The mastoid air cells are clear. The calvarium and skull base are intact. The ve ntricles and sulci are within normal limits. There is no mass, hematoma, midline shift, or acute infa rct. Age-related atrophy and chronic small vessel change Impression: No acute intracranial abnormality. Age-related atrophy and chronic small vessel change. Left maxillar y sinusitis The above report was generated using voice recognition software. It may contain grammatical, syntax or spelling errors. Electronically signed by: Nicholas Johnson M.D. 07/20/2018 6:26 AM
--- NOTE | 2018-07-20 06:36 | XRay Report ---
XR chest 1V portable CLINICAL HISTORY: Sepsis COMPARISON STUDY: 05/28/2018 FINDINGS: The heart is borderline enlarged. There is mild elevation of the interstitium, element of m ild pulmonary vascular congestion/fluid overload must be considered. Increased basilar markings are l ikely atelectatic although an infectious/inflammatory process could appear similar. There are no sign ificant pleural effusions. There are postsurgical changes involving the right shoulder. There are adv anced arthritic changes within the left shoulder.[ IMPRESSION: 1. Borderline cardiomegaly and suspected mild pulmonary vascular congestion/fluid overload 2. Increased basilar markings statistically atelectatic although an infectious/inflammatory process c ould appear similar Electronically signed by: Gregorio Henriquez M.D. 07/20/2018 6:35 AM
--- NOTE | 2018-07-20 07:08 | CT Scan Report ---
CT abd pelvis IV con only CLINICAL HISTORY: diarrhea, fever COMPARISON STUDY: 07/09/2018 TECHNIQUE: The patient was scanned in a dynamic helical fashion during intravenous administration of 93 cc of Optiray 320. A dose lowering technique was utilized adhering to the principles of ALARA. CT DOSE: 949.51 mGy.cm FINDINGS: Lower chest: There is respiratory motion artifact. There are basilar atelectatic changes. Liver: The contrast-enhanced liver is normal in size, contour, and attenuation. There is no intrahepa tic biliary ductal dilatation. The hepatic veins and portal veins are patent. Gallbladder: Unremarkable. Spleen: Normal in size and attenuation. Pancreas: Unremarkable. Adrenal glands: Unremarkable. Kidneys: There is 11 mm left renal cyst. No solid renal masses are visualized. There is mild prominen ce of the left renal collecting system, possibly secondary to mild bladder distention Bowel: There ar e no transition zones indicate bowel obstruction. There is moderate fecal retention. There are no fin dings to indicate acute appendicitis. Peritoneum: There is trace pelvic fluid. No free air is visualized. There is rectus diastases. Vasculature: The abdominal aorta is normal in course and caliber. And IVC filter is visualized. Adenopathy: None. Pelvic viscera: There is mild bladder distention. There is significant artifact secondary to bilatera l hip prostheses. There is a peel-away implant. Skeletal structures: No destructive osseous lesions are seen. IMPRESSION: 1. No evidence of bowel obstruction. No evidence of free air 2. No evidence of acute diverticulitis. No evidence of acute appendicitis. 3. Mild bladder distention 4. Mild dilatation of the left renal collecting system. No obstructing calculi identified 5. Mild fecal retention Electronically signed by: Gregorio Henriquez M.D. 07/20/2018 7:07 AM
[2018-07-20 07:23] LABS: Basophils # (auto) 0.01 K/uL (0-0.2); Basophils % (auto) 0.1 %; Eosinophils # (auto) 0.04 K/uL (0-0.5); Eosinophils % (auto) 0.5 %; Hematocrit (blood only) 35.2 % (42-52); Hemoglobin 11.8 g/dL (14.0-18.0); Immature Granulocytes # (auto) 0.03 K/uL (0.00-0.02); Immature Granulocytes % (auto) 0.4 %; Lymphocytes # (auto) 1.49 K/uL (1.2-3.4); Lymphocytes % (auto) 19.3 %; Mean Corpuscular Hgb Conc 33.5 g/dL (32-36); Mean Corpuscular Volume 90.3 fL (80-100); Mean Platelet Volume 12.3 fL (7.4-10.4); Monocytes # (auto) 1.62 K/uL (0.11-0.59); Neutrophils # (auto) 4.53 K/uL (1.4-6.5); Neutrophils % (auto) 58.7 %; Platelet Count 185 K/uL (130-400); RDW Coefficient of Variation 15.3 % (11.5-14.5); RDW Standard Deviation 50.7 fL (36.4-46.3); White Blood Count 7.72 K/uL (4.8-10.8)
[2018-07-20] MEDS: AVODART~ORDER AWAITING ACTION SCH ×3 (07:27→23:56)
[2018-07-20] MEDS: CYANOCOBALAMIN 500 MCG TABLET (VITAMIN B-12) PO SCH (07:29)
[2018-07-20] MEDS: CHOLECALCIFEROL 1,000 UNITS TAB PO SCH (07:29)
[2018-07-20] MEDS: ASCORBIC ACID 500 MG TAB PO SCH (07:29)
[2018-07-20] MEDS: BENZTROPINE MESYLATE 0.5 MG TAB PO SCH ×2 (07:30→20:11)
[2018-07-20] MEDS: SENNA 8.6 MG TAB PO SCH (07:30)
[2018-07-20] MEDS: POLYETHYLENE (MIRALAX) 17 GM PACK PO SCH (07:30)
[2018-07-20 07:39] LABS: Influenza A virus by PCR Neg for Influ A (Neg); Influenza B virus by PCR Neg for Influ B (Neg)
[2018-07-20 08:00] LABS: BUN Creatinine Ratio 21.1 (10-20); Creatinine Clr Calc Pharmacy 117.5 ml/min; Est GFR (African American) 118.9; Est GFR (Non-African American) 102.6; Magnesium 2.4 mg/dl (1.8-2.4); Potassium 3.7 mmol/L (3.5-5.1)
[2018-07-20] MEDS ORDERED: CEFEPIME 2,000 MG in SYRINGE 7.5 ML IV SCH (14:00)
--- NOTE | 2018-07-20 14:30 | Discharge Summary ---
Date of Service July 20, 2018 Discharge Data Allergies Allergy/AdvReac Type Severity Reaction Status Date / Time hydromorphone Allergy Unknown hives on Verified 07/20/18 03:13 trunk pollen extracts Allergy Unknown SNEEZING,RUNNY Verified 07/20/18 03:13 NOSE stanozolol Allergy Unknown Unknown Verified 07/20/18 03:13 mite-Dermatophagoides AdvReac Intermediate Sneeze, Verified 07/20/18 03:13 farinae, ying cough Poison Nguyen Extract/Poison Allergy Severe rash, itchy Uncoded 07/20/18 03:13 [place] Extra Consultations 07/20/18 02:27 ED Decision to Admit Stat 07/20/18 05:13 Consult Case Management - Discharge Planning Routine Ordered Studies 07/20/18 00:51 CT abd pelvis IV con only Urgent 07/20/18 02:16 CT head/brain wo con Urgent Hospital Course (1) Sepsis: (2) Pneumonia: (3) Diarrhea: Discharge Plan Discharge Items Reason For Visit: ILLNESS Follow-up/Referrals: Maira Alfaro at [facility] [Primary Care Provider] - Prescriptions: No Action dutasteride 0.5 mg capsule 0.5 mg PO QAM RF: 0 carbidopa-levodopa 50-200 mg tablet extended release 1 tab PO HS RF: 0 pimavanserin 34 mg capsule 34 mg PO QAM RF: 0 sennosides [Senokot] 8.6 mg Tablet 17.2 mg PO QAM Qty: 60 RF: 0 acetaminophen [Mapap (acetaminophen)] 325 mg Tablet 650 mg PO Q4H PRN (Reason: fever or pain) Qty: 30 RF: 0 ondansetron 8 mg tablet,disintegrating 8 mg PO Q6H PRN (Reason: nausea and vomiting) Qty: 20 RF: 0 benztropine 0.5 mg tablet 0.5 mg PO AMHS RF: 0 tamsulosin 0.4 mg capsule 0.4 mg PO QPM RF: 0 carbidopa-levodopa 25-100 mg tablet 2 tab PO Q3H RF: 0 rivaroxaban 20 mg tablet 20 mg PO HS RF: 0 ropinirole 1 mg Tablet 1 mg PO HS RF: 0 ascorbic acid (vitamin C) [Vitamin C] 1,000 mg Tablet 1,000 mg PO QAM RF: 0 cyanocobalamin (vitamin B-12) [Vitamin B-12] 1,000 mcg Tablet 1,000 mcg PO QAM RF: 0 cholecalciferol (vitamin D3) [Vitamin D3] 2,000 unit Tablet 2,000 unit PO QAM RF: 0 polyethylene glycol 3350 [Miralax] 17 gram powder in packet 17 g PO QAM RF: 0 nitrofurantoin 25 mg/5 mL suspension 20 ml PO AMHS RF: 0 Admission Data Admit Date/Time: 07/20/18 03:19 Attending Provider: Valarie Johns Admit Provider: Guilherme Moreland Primary Care Provider: Maira Alfaro [facility] Other Providers: Guilherme Moreland ; Patricia Benjamin Service: Telemetry Medical
--- NOTE | 2018-07-20 18:15 | Hospitalist Progress Note ---
Date of Service July 20, 2018 Assessment & Plan (1) Metabolic encephalopathy: Presented with confusion, worsening of mental status, possibly secondary to infection, Resolved, mental status improved to baseline, patient is awake and alert oriented to place and person conversing appropriately, has difficulty with verbalization secondary to dyskinetic movement of facial muscles UTI: Urine culture shows E. coli pansensitive, Antibiotic adjusted to IV Rocephin Present on Admission?: Yes (2) Urinary tract infection: Pansensitive E. coli, antibiotic adjusted to p.o. ciprofloxacin continue 5 more days of treatment (3) Parkinsons disease: Functional status is baseline, Continue Sinemet, resident at [facility], (4) Generalized weakness: Baseline Parkinson's disease with limited activity, presented with worsening of weakness decline secondary to dehydration urine tract infection, symptoms improved with IV hydration and antibiotic treatment, patient is afebrile, appetite improved, possible return back to [facility] tomorrow (5) Dehydration: Secondary to poor p.o. intake, UTI, symptom corrected with IV fluids, CODE STATUS: Full code Disposition: Expect to return back to [facility] tomorrow Subjective Awake and alert, does not appear to be confused, very hard to understand secondary to baseline dysarthria, due to Parkinson's disease, remains afebrile, hemodynamically stable, no complaint of nausea vomiting, tolerating diet Patient is eager to return back to [facility], no hypoxia, no cough, no shortness of breath noted Physical Exam Vital Signs (Past 24 Hours): Last Vital Signs Temp 36.4 C L 07/20/18 15:47 Pulse 55 L 07/20/18 16:20 Resp 17 07/20/18 15:47 BP 109/71 07/20/18 15:47 Pulse Ox 96 07/20/18 15:47 Physical Exam: Constitutional no acute distress masked facies from PD; tremors of facial muscles; speech difficult to understand at times ENMT external ear and nose normal, oropharynx normal Respiratory No wheeze or rales noted, lungs sound diminished Cardiovascular RRR, no murmur, no edema Heart Sounds: normal S1 and normal S2 Gastrointestinal (Abdomen) normal bowel sounds, soft, nontender, no hepatosplenomegaly Percussion/Palpation: + hernia (ventral - reducible ) Neurologic resting tremors, masked facies Psychiatric Orientation: alert and oriented x 3 (1) Urinary tract infection Hematuria presence: without hematuria Urinary tract infection type: site unspecified Qualified Code(s): N39.0 - Urinary tract infection, site not specified
[2018-07-20] MEDS ORDERED: RIVAROXABAN 20 MG TAB PO SCH (21:00)
[2018-07-20] MEDS ORDERED: ROPINIROLE HCL 1 MG TABLET PO SCH (21:00)
[2018-07-20] MEDS ORDERED: CARBIDOPA/LEVODOPA 50/200MG EXT REL TAB PO SCH (21:00)
[2018-07-20] MEDS ORDERED: TAMSULOSIN HCL 0.4 MG CAP PO SCH (21:00)
[2018-07-20] MEDS ORDERED: cefTRIAXone SODIUM 1,000 MG in DEXTROSE 5% 50 ML IV SCH (22:00)
[2018-07-21 06:06] LABS: BUN Creatinine Ratio 20.2 (10-20); Creatinine Clr Calc Pharmacy 160.5 ml/min; Est GFR (African American) 135.2; Est GFR (Non-African American) 116.6; Potassium 3.5 mmol/L (3.5-5.1)
[2018-07-21] MEDS: CARBIDOPA/LEVODOPA 25/100MG TAB PO SCH ×4 (06:18→15:02)
[2018-07-21] MEDS: AVODART~ORDER AWAITING ACTION SCH ×2 (08:08→15:57)
[2018-07-21] MEDS: CYANOCOBALAMIN 500 MCG TABLET (VITAMIN B-12) PO SCH (08:09)
[2018-07-21] MEDS: CHOLECALCIFEROL 1,000 UNITS TAB PO SCH (08:09)
[2018-07-21] MEDS: BENZTROPINE MESYLATE 0.5 MG TAB PO SCH (08:10)
[2018-07-21] MEDS: SENNA 8.6 MG TAB PO SCH (08:10)
[2018-07-21] MEDS: POLYETHYLENE (MIRALAX) 17 GM PACK PO SCH (08:10)
[2018-07-21] MEDS: ASCORBIC ACID 500 MG TAB PO SCH (08:11)
--- NOTE | 2018-07-21 14:35 | Discharge Summary ---
Date of Service July 21, 2018 Principal Diagnosis UTI: PANSENSITIVE E. COLI, CONFUSION-RESOLVED/PARKINSON'S DISEASE Discharge Exam Discharge Exam Constitutional no acute distress ENMT external ear and nose normal, oropharynx normal Respiratory normal respiratory effort, lungs clear to auscultation Cardiovascular RRR, no murmur, no edema Heart Sounds: normal S1 and normal S2 Vessels: posterior tibial pulses present and dorsalis pedis pulses present; no JVD Gastrointestinal (Abdomen) normal bowel sounds, soft, nontender, no hepatosplenomegaly Percussion/Palpation: + hernia (ventral - reducible ) Neurologic speech difficult to understand at times; typical parkinsonian features and masked facies Psychiatric Orientation: alert and oriented x 3 Discharge Data Allergies Allergy/AdvReac Type Severity Reaction Status Date / Time hydromorphone Allergy Unknown hives on Verified 07/20/18 03:13 trunk pollen extracts Allergy Unknown SNEEZING,RUNNY Verified 07/20/18 03:13 NOSE stanozolol Allergy Unknown Unknown Verified 07/20/18 03:13 mite-Dermatophagoides AdvReac Intermediate Sneeze, Verified 07/20/18 03:13 farinae, ying cough Poison Nguyen Extract/Poison Allergy Severe rash, itchy Uncoded 07/20/18 03:13 [place] Extra Consultations 07/20/18 02:27 ED Decision to Admit Stat 07/20/18 05:13 Consult Case Management - Discharge Planning Routine Ordered Studies 07/20/18 00:51 CT abd pelvis IV con only Urgent 07/20/18 02:16 CT head/brain wo con Urgent Hospital Course (1) Metabolic encephalopathy: Symptom resolved, Presented with confusion, worsening of mental status, possibly secondary to infection, Resolved, mental status improved to baseline, patient is awake and alert oriented to place and person conversing appropriately, has difficulty with verbalization secondary to dyskinetic movement of facial muscles UTI: Urine culture shows E. coli pansensitive, Was on IV Rocephin Diuretics changed to p.o. ciprofloxacin 500 mg twice daily for total 5 days (2) Urinary tract infection: Pansensitive E. coli, antibiotic adjusted to p.o. ciprofloxacin continue 5 more days of treatment (3) Parkinsons disease: Functional status is baseline, Continue Sinemet, resident at [facility], (4) Generalized weakness: Baseline Parkinson's disease with limited activity, presented with worsening of weakness decline secondary to dehydration urine tract infection, symptoms improved with IV hydration and antibiotic treatment, patient is afebrile, appetite improved, Stable to return back to [facility] to day (5) Dehydration: Secondary to poor p.o. intake, UTI, symptom corrected with IV fluids, Tolerating diet, renal function at baseline, normal volume status CODE STATUS: Full code Disposition: Stable to return back to [facility] today Total Time Total Time Spent Total Time Spent (In Minutes): Approximate 40 minutes Total Time Includes: Examination of the Patient, Discharge Planning and Medication Reconciliation Discharge Plan Discharge Items Patient Disposition: Transfer [facility] Reason For Visit: ILLNESS Discharge Diagnosis: UTI/CONFUSION-RESOLVEDPARKINSON'S DISEASE Discharge Goals: Decrease discomfort and Therapeutic intervention Activity: Resume your previous activity Non-emergency contact: Primary Care Provider Call non-emergency contact if: you have any medication questions Follow-up/Referrals: Maira Alfaro at [facility] [Primary Care Provider] - Diet: Regular Diet Texture: Pureed (blended smooth) Liquid Consistency: [place] thick Addtl Provider Instructions: HOSPITAL FOLLOW UP WITH FAMILY PHYSICIAN Prescriptions: New ciprofloxacin HCl 500 mg tablet 500 mg PO BID Qty: 10 RF: 0 Continued dutasteride 0.5 mg capsule 0.5 mg PO QAM RF: 0 carbidopa-levodopa 50-200 mg tablet extended release 1 tab PO HS RF: 0 pimavanserin 34 mg capsule 34 mg PO QAM RF: 0 sennosides [Senokot] 8.6 mg Tablet 17.2 mg PO QAM Qty: 60 RF: 0 acetaminophen [Mapap (acetaminophen)] 325 mg Tablet 650 mg PO Q4H PRN (Reason: fever or pain) Qty: 30 RF: 0 ondansetron 8 mg tablet,disintegrating 8 mg PO Q6H PRN (Reason: nausea and vomiting) Qty: 20 RF: 0 benztropine 0.5 mg tablet 0.5 mg PO AMHS RF: 0 tamsulosin 0.4 mg capsule 0.4 mg PO QPM RF: 0 carbidopa-levodopa 25-100 mg tablet 2 tab PO Q3H RF: 0 rivaroxaban 20 mg tablet 20 mg PO HS RF: 0 ropinirole 1 mg Tablet 1 mg PO HS RF: 0 ascorbic acid (vitamin C) [Vitamin C] 1,000 mg Tablet 1,000 mg PO QAM RF: 0 cyanocobalamin (vitamin B-12) [Vitamin B-12] 1,000 mcg Tablet 1,000 mcg PO QAM RF: 0 cholecalciferol (vitamin D3) [Vitamin D3] 2,000 unit Tablet 2,000 unit PO QAM RF: 0 polyethylene glycol 3350 [Miralax] 17 gram powder in packet 17 g PO QAM RF: 0 nitrofurantoin 25 mg/5 mL suspension 20 ml PO AMHS RF: 0 Stand-Alone Forms: [facility] Discharge Orders: Discharge Order (Routine); Ordered 07/21/18 Ordered By: Valarie Johns Skilled Items Patient informed of condition?: Yes DNR: No Discharge Level of Care: Skilled Communicable Disease: No Discharge Prognosis: Stable Admission Data Admit Date/Time: 07/20/18 03:19 Attending Provider: Valarie Johns Admit Provider: Guilherme Moreland Primary Care Provider: Maira Alfaro at [facility] Other Providers: Guilherme Moreland ; Patricia Benjamin Service: Telemetry Medical Other Interventions: Discharge Summary Assessment (RN) Last Done: 07/21/18 13:23
== END 2018-07-21 17:56 | DRG 689 ==
LOC: ED 00:06 → SUATTDRO 03:19 → 2N 03:19